=== PATIENT | male | born 1955 | race Caucasian/White ===

== ENCOUNTER 2016-04-03 06:29 | Day surgery (SDC) | payer BC ==
[~2016-04-03] VITALS: Ht 157.5 cm; Wt 46.8 kg
[~2016-04-03 06:29] MED LIST: GABAPENTIN; HYDR-3498 PO; PANTOPRAZOLE
[2016-04-03 07:42] VITALS: Ht 157.5 cm; Wt 46.8 kg
[2016-04-03] MEDS ORDERED: HYDROCODONE (07:53)
[2016-04-03] MEDS ORDERED: NEXIUM (07:53)
[2016-04-03] MEDS ORDERED: REGLAN (07:54)
[2016-04-03] MEDS ORDERED: PROPOFOL 40 ML ONE (08:12)
[2016-04-03 08:15] VITALS: BP 115/66; PULSE 52; RESP 21
[2016-04-03] MEDS ORDERED: GLYCOPYRROLATE 0.4 MG INJ ONE (08:15)
[2016-04-03 09:08] VITALS: BP 110/75; RESP 20
--- NOTE | 2016-04-03 22:04 | GILP ---
DATE OF PROCEDURE: 04/03/2016 PROCEDURE PERFORMED: EGD with biopsy. INDICATION: A 60-year-old male undergoing this procedure for persistent nausea , vomiting. The purpose of this procedure is to evaluate the upper GI tract and rule out malignancy. The risk of the procedure, related and unrelated complications, anesthetic risks, alternatives discussed, and informed consent was obtained. DESCRIPTION OF PROCEDURE: The patient was brought to the GI lab, sedated by the anesthesiologist. After optimum sedation, scope was passed with much ease into the esophagus, which showed multiple ulcerations in the distal part of the esophagus. Stomach mucosa: Half was filled with undigested food indicative of gastric outlet obstruction. The pyloric channel was severely narrowed, probably from scar tissue. I managed to pass through the small opening by gently pushing the scope into the duodenum. It was technically difficult to take the biopsy through the narrow channel, but we tried to take 6-7 biopsies from the margin. The endoscope was immediately removed. IMPRESSION: 1. Gastric outlet obstruction. There was a narrowing at the anastomotic area, with scar tissue and inflammation. 2. Undigested food particles in the stomach. 3. Multiple ulcers in the distal esophagus. PLAN: 1. Will review the histopathology. 2. The patient needs a PET scan, and if the PET scan is negative and there is no recurrence of tumor, then the best thing will be to put an off-label esophageal covered stent. I do not know whether axios will work or not, because the length of the stenosis is longer than the length of the Axios that are available in the [place]. 3. He needs a surgical consult. Dictated By: INA CARCAMO/JEFRY Conf#: [id number] DID#: [id number] CC: INA TOVAR MD;*EndCC* MTDD
== END 2016-04-03 11:41 | disposition home or self-care (01) ==
LOC: GIL 06:29
PROVIDERS: ATTEND Internal Medicine Gastroenterology
DX: K29.50 Unspecified chronic gastritis without bleeding (principal); K22.10 Ulcer of esophagus without bleeding
CPT/HCPCS: 43239; 88305; 88312; Z7610

== ENCOUNTER 2016-05-08 08:56 | Inpatient (IN) | payer BC ==
[~2016-05-08] VITALS: Ht 157.5 cm; Wt 47.0 kg
[~2016-05-08 08:56] MED LIST changes: +HYDROCODONE; +NEXIUM; +REGLAN
[2016-05-08] MEDS ORDERED: morphine 4 MG/ML VIAL IV STA (11:17)
[2016-05-08] MEDS ORDERED: ONDANSETRON 4 MG INJ IV STA (11:17)
[2016-05-08] MEDS ORDERED: SOD CHLORIDE 0.9% 1,000 ML IV STA (11:17)
[2016-05-08] MEDS ORDERED: HYDR-906 PO (11:41)
[2016-05-08] MEDS ORDERED: PANT40TA4 PO (11:42)
[2016-05-08] MEDS ORDERED: METO5TAB58 PO (11:42)
[2016-05-08] MEDS ORDERED: GABA100C14 PO (11:42)
[2016-05-08 11:50] LABS: ADD SCAN DIFF NO
[2016-05-08 11:58] LABS: BASOPHILS % 0.4 % (0.0-2.0); EOSINOPHILS % 0.4 % (0.0-7.0); HEMATOCRIT 33.9 % (42.0-52.0); LYMPHOCYTES # 1.1 10^3/ul (0.8-2.9); LYMPHOCYTES % 14.5 % (15.0-51.0); MEAN CORPUSCULAR HEMOGLOBIN 30.3 pg (29.0-33.0); MEAN CORPUSCULAR HGB CONC 32.4 g/dl (32.0-37.0); MEAN CORPUSCULAR VOLUME 93.4 fl (82.0-101.0); MEAN PLATELET VOLUME 10.7 fl (7.4-10.4); MONOCYTE # 0.4 10^3/ul (0.3-0.9); NEUTROPHIL # 5.9 10^3/ul (1.6-7.5); NEUTROPHILS % 79.4 % (39.0-77.0); PLATELET COUNT 192 10^3/UL (140-415); RED BLOOD COUNT 3.63 10^6/ul (4.70-6.10); RED CELL DISTRIBUTION WIDTH 14.6 % (11.5-14.5); WHITE BLOOD COUNT 7.4 10^3/ul (4.8-10.8)
[2016-05-08 12:00] LABS: ADD UMIC NO; URINE BILIRUBIN (Dip) NEGATIVE (NEGATIVE); URINE BLOOD (Dip) NEGATIVE (NEGATIVE); URINE COLOR LT. YELLOW (YELLOW); URINE GLUCOSE (Dip) NEGATIVE (NEGATIVE); URINE KETONES (Dip) NEGATIVE (NEGATIVE); URINE LEUKOCYTE ESTERASE (Dip) NEGATIVE (NEGATIVE); URINE NITRITE (Dip) NEGATIVE (NEGATIVE); URINE TOTAL PROTEIN (Dip) NEGATIVE (NEGATIVE); URINE UROBILINOGEN (Dip) 0.2 E.U./dL (0.1-1.0)
[2016-05-08 12:05] LABS: ALBUMIN 3.7 g/dl (3.3-4.9)
[2016-05-08 12:07] LABS: CREATININE 0.94 mg/dl (0.61-1.24)
[2016-05-08 12:08] LABS: ALBUMIN/GLOBULIN RATIO 1.37; BILIRUBIN,INDIRECT 0.1 mg/dl (0-1.1); BILIRUBIN,TOTAL 0.1 mg/dl (0.2-1.3); CALCIUM 9.4 mg/dl (8.4-10.2); TOTAL PROTEIN 6.4 g/dl (6.1-8.1)
[2016-05-08] MEDS ORDERED: ONDANSETRON 4 MG INJ IV PRN ×2 (12:30→15:00)
[2016-05-08] MEDS ORDERED: ACETAMINOPHEN 325 MG TAB PO PRN (12:30)
--- NOTE | 2016-05-08 12:44 | ERA ---
ER Documentation Chief Complaint Date/Time DATE: 05/08/16 TIME: 12:40 Chief Complaint PT STATES UNABLE TO PASS FOOD X3 YEARS, HX OF ABD CANCER AND SURGERY HPI Patient is a 60-year-old male with a history of gastric cancer presents with abdominal pain. The patient has had decreased bowel movement for the past 1 week. He has a history of gastric cancer. He said that he will try to eat food and drink fluids and then vomits after eating. He feels like nothing is going through. He has diffuse abdominal pain. The son spoke with Dr. Gallego his GI doctor who said he should go to the emergency department. ROS All systems reviewed and are negative except as per history of present illness. Medications Home Meds Reported Medications Pantoprazole* (Pantoprazole*) 40 Mg Tablet.dr, 40 MG PO AC BREAKFAST, TAB 05/08/16 Metoclopramide* (Reglan*) 5 Mg Tablet, 5 MG PO AC MEALS, TAB 05/08/16 Gabapentin* (Gabapentin*) 100 Mg Capsule, 100 MG PO TID, #90 CAP 05/08/16 Hydrocodone/Acetaminophen ([place] 5-325 Tablet) 1 Each Tablet, 1 EACH PO Q6 Y for PAIN LEVEL 6-10, TAB 05/08/16 Discontinued Reported Medications [Reglan] No Conflict Check 04/03/16 [Nexium] No Conflict Check 04/03/16 [Hydrocodone] No Conflict Check 04/03/16 [Gabapentin] No Conflict Check 01/09/16 [Pantoprazole] No Conflict Check 01/09/16 Hydrocodone Bit-Acetaminophen* (Hydrocodone-APAP*) 5-325 Tablet, 1 TAB PO Q4H Y for PAIN, TAB 10/02/15 Allergies Allergies: Coded Allergies: No Known Allergy (Unverified , 03/09/15) PMhx/Soc History of Surgery: Yes (STOMACH SURGERY FOR STOMACH CANCER) Anesthesia Reaction: No Hx Neurological Disorder: No Hx Respiratory Disorders: No Hx Cardiac Disorders: No Hx Psychiatric Problems: No Hx Miscellaneous Medical Probl: Yes (esophogitis, hx stomach CA) Hx Alcohol Use: No Hx Substance Use: No Hx Tobacco Use: Yes (1-2 TIMES PER WEEK, CIGARETTES) Smoking Status: Current every day smoker FmHx Family History: No diabetes Physical Exam Vitals Vital Signs Date Time Temp Pulse Resp B/P Pulse Ox O2 Delivery O2 Flow Rate FiO2 3/9/17 11:17 97.8 05/08/16 09:12 64 18 108/74 100 Physical Exam Const: Mild distress Head: Atraumatic Eyes: Normal Conjunctiva ENT: Normal External Ears, Nose and Mouth. Neck: Full range of motion..~ No meningismus. Resp: Clear to auscultation bilaterally Cardio: Regular rate and rhythm, no murmurs Abd: Soft, diffuse tenderness to palpation without rebound or guarding, no obvious distention Skin: Pale Back: No midline or flank tenderness Ext: No cyanosis, or edema Neur: Awake and alert Psych: Normal Mood and Affect Result Diagram: 05/08/16 1132 05/08/16 1132 Results 24 hrs Laboratory Tests Test 05/08/16 11:32 Alanine Aminotransferase (ALT/SGPT) 35IU/L Albumin 3.7g/dl Albumin/Globulin Ratio 1.37 Alkaline Phosphatase 156IU/L Anion Gap 14 Aspartate Amino Transf (AST/SGOT) 20IU/L Basophils # 0.010^3/ul Basophils % 0.4% Blood Urea Nitrogen 25mg/dl Calcium Level 9.4mg/dl Carbon Dioxide Level 38mmol/L Chloride Level 93mmol/L Creatinine 0.94mg/dl Direct Bilirubin 0.00mg/dl Eosinophils # 0.010^3/ul Eosinophils % 0.4% Globulin 2.70g/dl Glucose Level 102mg/dl Hematocrit 33.9% Hemoglobin 11.0g/dl Indirect Bilirubin 0.1mg/dl Lipase 14U/L Lymphocytes # 1.110^3/ul Lymphocytes % 14.5% Mean Corpuscular Hemoglobin 30.3pg Mean Corpuscular Hemoglobin Concent 32.4g/dl Mean Corpuscular Volume 93.4fl Mean Platelet Volume 10.7fl Monocytes # 0.410^3/ul Monocytes % 5.0% Neutrophils # 5.910^3/ul Neutrophils % 79.4% Nucleated Red Blood Cells # 0.010^3/ul Nucleated Red Blood Cells % 0.0/100WBC Platelet Count 28195^3/UL Potassium Level 4.0mmol/L Red Blood Count 3.6310^6/ul Red Cell Distribution Width 14.6% Sodium Level 141mmol/L Total Bilirubin 0.1mg/dl Total Protein 6.4g/dl Urine Bilirubin NEGATIVE Urine Clarity CLEAR Urine Color LT. YELLOW Urine Glucose NEGATIVE% Urine Hemoglobin NEGATIVE Urine Ketones NEGATIVE Urine Leukocyte Esterase NEGATIVE Urine Nitrite NEGATIVE Urine Specific [place] 1.015 Urine Total Protein NEGATIVE Urine Urobilinogen 0.2 E.U./dL Urine pH 8.5 White Blood Count 7.410^3/ul Current Medications Medications (Trade) Dose Ordered Sig/Dipesh Route PRN Reason Start Time Stop Time Status Last Admin Dose Admin Sodium Chloride (NS) 1,000 ml @ 1,000 mls/hr Q1H STAT IV 05/08/16 11:17 05/08/16 12:16 DC 05/08/16 12:05 Morphine Sulfate (morphine) 4 mg ONCE STAT IV 05/08/16 11:17 05/08/16 11:19 DC 05/08/16 12:05 Ondansetron HCl (Zofran Inj) 4 mg ONCE STAT IV 05/08/16 11:17 05/08/16 11:20 DC 05/08/16 12:05 Ondansetron HCl (Zofran Inj) 4 mg BRIDGE ORDER PRN IV NAUSEA AND/OR VOMITING 05/08/16 12:30 05/09/16 12:29 Acetaminophen (Tylenol Tab) 650 mg ER BRIDGE PRN PO MILD PAIN/FEVER 05/08/16 12:30 05/09/16 12:29 Procedures/MDM CT scan of the abdomen and pelvis is pending radiology read at this time. Smoking Cessation Therapy: Pt. was lectured for greater than 3 minutes on the health risks of continued smoking and the benefits of cessation. Patient is a 60-year-old male with gastric cancer presents with abdominal pain and vomiting. I believe he has gastric outflow obstruction. I am concerned that the patient has dehydration as his BUN creatinine ratio is greater than 20. He was given 1 L of normal saline for fluid resuscitation. The patient was also given morphine and Zofran for symptomatically relief of his pain and nausea. Based on his insurance which is [facility] the patient will be admitted to Dr. Self who admits this insurance. The patient will be admitted to a medical surgical bed. I also called Dr. Gallego his embroiderer hand and I am awaiting a call back at this time. The patient had EGD last in April and may need a repeat EGD versus surgical procedure to repair his obstruction. At this point I doubt appendicitis, cholecystitis, pancreatitis, or bowel obstruction. Patient has anemia with a hemoglobin of 11 but does not require transfusion at this time. Departure Diagnosis: Primary Impression: Gastric outflow obstruction Additional Impression: Vomiting Qualified Code: R11.2 - Intractable vomiting with nausea, unspecified vomiting type Condition: ANEL De Luna MD May 08, 2016 12:44
[2016-05-08 13:14] VITALS: TEMP 97.8
--- NOTE | 2016-05-08 13:59 | RADRPT ---
PROCEDURE: CT Abdomen and Pelvis without contrast. CLINICAL INDICATION: Abdominal pain TECHNIQUE: CT scan of the abdomen and pelvis without contrast was performed on a multi-slice CT sc sarah without intravenous contrast. Coronal and sagittal reformatted images were obtained from the axial source images. Images were reviewed on a high-resolution PACS workstation. One or more of the following does reduction techniques were used: Automated exposure control; adjustment of the mA an d/or kV according to patient size; use of the aorta of reconstruction technique. The total exam CTD I equals 3.57 mGy and the total exam DLP equals 194.37 mGy-cm. COMPARISON: None available. FINDINGS: The lung bases are clear. Heart size is normal, and there is no evidence of pericardial thickening or effusion. Evaluation of the abdominal contents is limited due to lack of intravenous and oral contrast combine d with paucity of abdominal fat. There is marked distension of the gastric lumen which contains moderate amounts of debris. There is a questionable gastrojejunostomy and/or Esteban-en-Y gastric bypass. The liver, spleen, and pancreas are normal given limitations of a noncontrast CT examination. The g allbladder appears contracted. The adrenal glands are normal. There is a punctate right upper pole nonobstructing renal calculus. There is a 2 mm left upper pole nonobstructing renal calculus. There is no hydronephrosis. Left r enal cysts are present. The aorta is of normal caliber. Atherosclerotic calcifications are present. There is no retroperito terri lymph node enlargment. There is no evidence of large or small bowel obstruction. A normal appendix is not identified. No free fluid or fluid collections are identified. No inflammatory changes are seen. The prostate is mildly enlarged. Evaluation for pelvic side wall lymph node enlargement is limited. There is no definite pelvic sidewall lymph node enlargement. The bladder is compressed and collapse d. No free fluid is identified. The inguinal regions are unremarkable. Incidental note is made of a moderate right hydrocele. The bones are intact. IMPRESSION: 1. Study limited by lack of intravenous and oral contrast combined with paucity of abdominal fat. 2. Marked distension of the gastric lumen which contains moderate amounts of debris. There are que stionable postsurgical changes in the abdomen, and there may be a gastrojejunostomy. Recommend raven elation with surgical history. 3. Small bilateral nonobstructing renal calculi. 4. Atherosclerotic vascular disease. RPTAT: KK .Pedro Saba MD, MD Date Time Electronically viewed and signed by .Pedro Saba MD, MD on 05/08/2016 13:58 .B/
[2016-05-08 14:00] VITALS: Ht 157.5 cm; Wt 47.0 kg
[2016-05-08] MEDS ORDERED: PANTOPRAZOLE 40 MG INJ IV ONE (15:00)
[2016-05-08] MEDS: DEXTROSE 5%-0.45% NACL 1,000 ML IV SCH (16:34)
--- NOTE | 2016-05-08 17:32 | HP ---
Date/Time of Note Date/Time of Note DATE: 05/08/16 TIME: 17:25 Assessment/Plan VTE Prophylaxis VTE Prophylaxis Intervention: LMWH Assessment/Plan Assessment/Plan -Gastric outflow obstruction - npo - GI consult appreciated- Dr Gallego notified -Intractable vomiting with nausea - per GI - Zofran - Right hydrocele. - Urology consult appreciated- Dr Lozada notified - Small bilateral nonobstructing renal calculi. - per Urology - Atherosclerotic vascular disease. - Smoker- Current every day smoker(1-2 TIMES PER WEEK, CIGARETTES) -smoking cessation - Hx stomach CA - SP Stomach surgery sec to stomach cancer - Hx Esophogitis - SCDs for DVT prophylaxis - Protonix for GI prophylaxis DW Dr Fernando/ staff/patient. HPI/ROS Admit Date/Time Admit Date/Time May 08, 2016 at 13:19 Hx of Present Illness PT STATES UNABLE TO PASS FOOD X3 YEARS, HX OF ABD CANCER AND SURGERY HPI Patient is a 60-year-old male with a history of gastric cancer presents with abdominal pain. The patient has had decreased bowel movement for the past 1 week. He has a history of gastric cancer. He said that he will try to eat food and drink fluids and then vomits after eating. He feels like nothing is going through. He has diffuse abdominal pain. The son spoke with Dr. Gallego his GI doctor who said he should go to the emergency department. ROS All systems reviewed and are negative except as per history of present illness. Medications Home Meds Reported Medications Pantoprazole* (Pantoprazole*) 40 Mg Tablet., 40 MG PO AC BREAKFAST, TAB 05/08/16 Metoclopramide* (Reglan*) 5 Mg Tablet, 5 MG PO AC MEALS, TAB 05/08/16 Gabapentin* (Gabapentin*) 100 Mg Capsule, 100 MG PO TID, #90 CAP 05/08/16 Hydrocodone/Acetaminophen ([place] 5-325 Tablet) 1 Each Tablet, 1 EACH PO Q6 Y for PAIN LEVEL 6-10, TAB 05/08/16 Discontinued Reported Medications [Reglan] No Conflict Check 04/03/16 [Nexium] No Conflict Check 04/03/16 [Hydrocodone] No Conflict Check 04/03/16 [Gabapentin] No Conflict Check 01/09/16 [Pantoprazole] No Conflict Check 01/09/16 Hydrocodone Bit-Acetaminophen* (Hydrocodone-APAP*) 5-325 Tablet, 1 TAB PO Q4H Y for PAIN, TAB 10/02/15 Allergies Allergies: Coded Allergies: No Known Allergy (Unverified , 03/09/15) ROS Eyes: no complaints ENT: no complaints Respiratory: no complaints Cardiovascular: no complaints Gastrointestinal: pain Genitourinary: no complaints Musculoskeletal: no complaints Skin: no complaints Neurologic: no complaints Endocrine: no complaints Lymphatic: no complaints Psychological: no complaints PMH/Family/Social Past Medical History PMhx/Soc History of Surgery: Yes (STOMACH SURGERY FOR STOMACH CANCER) Anesthesia Reaction: No Hx Neurological Disorder: No Hx Respiratory Disorders: No Hx Cardiac Disorders: No Hx Psychiatric Problems: No Hx Miscellaneous Medical Probl: Yes (esophogitis, hx stomach CA) Hx Alcohol Use: No Hx Substance Use: No Hx Tobacco Use: Yes (1-2 TIMES PER WEEK, CIGARETTES) Smoking Status: Current every day smoker FmHx Family History: No diabetes Social History Smoking Status: Current every day smoker Exam/Review of Systems Vital Signs Vitals Vital Signs Date Time Temp Pulse Resp B/P Pulse Ox O2 Delivery O2 Flow Rate FiO2 05/08/16 13:14 97.8 45 12 110/76 100 Room Air Exam Constitutional: alert, oriented, well developed Psych: no complaints Head: atraumatic Eyes: EOMI ENMT: nl external ears & nose Neck: non-tender Respiratory: clear to auscultation Cardiovascular: nl pulses Gastrointestinal: other (Soft, diffuse tenderness to palpation without rebound or guarding, no obvious distention), soft, tender Musculoskeletal: nl extremities to inspection Extremities: normal pulses Labs Result Diagram: 05/08/16 1132 05/08/16 1132 Medications Medications Current Medications Dextrose/Sodium Chloride (D5-1/2ns) 1,000 ml @ 70 mls/hr [id number] IV Last administered on 05/08/16t 16:34; Admin Dose 70 MLS/HR; Start 05/08/16 at 15:00 Pantoprazole (Protonix Iv) 40 mg DAILY@06 IV ; Start 05/09/16 at 06:00 Ondansetron HCl (Zofran Inj) 4 mg Q6H PRN IV NAUSEA AND/OR VOMITING; Start 05/08 at 15:00 Procedures Procedures PROCEDURE: CT Abdomen and Pelvis without contrast. CLINICAL INDICATION: Abdominal pain TECHNIQUE: CT scan of the abdomen and pelvis without contrast was performed on a multi-slice CT scanner without intravenous contrast. Coronal and sagittal reformatted images were obtained from the axial source images. Images were reviewed on a high-resolution PACS workstation. One or more of the following does reduction techniques were used: Automated exposure control; adjustment of the mA and/or kV according to patient size; use of the aorta of reconstruction technique. The total exam CTDI equals 3.57 mGy and the total exam DLP equals 194.37 mGy-cm. COMPARISON: None available. FINDINGS: The lung bases are clear. Heart size is normal, and there is no evidence of pericardial thickening or effusion. Evaluation of the abdominal contents is limited due to lack of intravenous and oral contrast combined with paucity of abdominal fat. There is marked distension of the gastric lumen which contains moderate amounts of debris. There is a questionable gastrojejunostomy and/or Esteban-en-Y gastric bypass. The liver, spleen, and pancreas are normal given limitations of a noncontrast CT examination. The gallbladder appears contracted. The adrenal glands are normal. There is a punctate right upper pole nonobstructing renal calculus. There is a 2 mm left upper pole nonobstructing renal calculus. There is no hydronephrosis. Left renal cysts are present. The aorta is of normal caliber. Atherosclerotic calcifications are present. There is no retroperitoneal lymph node enlargment. There is no evidence of large or small bowel obstruction. A normal appendix is not identified. No free fluid or fluid collections are identified. No inflammatory changes are seen. The prostate is mildly enlarged. Evaluation for pelvic side wall lymph node enlargement is limited. There is no definite pelvic sidewall lymph node enlargement. The bladder is compressed and collapsed. No free fluid is identified. The inguinal regions are unremarkable. Incidental note is made of a moderate right hydrocele. The bones are intact. IMPRESSION: 1. Study limited by lack of intravenous and oral contrast combined with paucity of abdominal fat. 2. Marked distension of the gastric lumen which contains moderate amounts of debris. There are questionable postsurgical changes in the abdomen, and there may be a gastrojejunostomy. Recommend correlation with surgical history. 3. Small bilateral nonobstructing renal calculi. 4. Atherosclerotic vascular disease. LAYLA HAMILTON May 08, 2016 17:32
[2016-05-08 18:05] VITALS: BP 117/78; RESP 16
[2016-05-08 18:46] LABS: ALBUMIN 3.2 g/dl (3.3-4.9)
[2016-05-08 18:48] LABS: BILIRUBIN,INDIRECT 0.1 mg/dl (0-1.1); BILIRUBIN,TOTAL 0.1 mg/dl (0.2-1.3)
[2016-05-08 18:49] LABS: TOTAL PROTEIN 5.8 g/dl (6.1-8.1)
[2016-05-08 20:00] VITALS: BP 104/68; RESP 18
[2016-05-08] MEDS: PANTOPRAZOLE 40 MG INJ IV SCH (20:29)
--- NOTE | 2016-05-08 21:35 | CONS ---
Date/Time of Note Date/Time of Note DATE: 05/08/16 TIME: 21:26 Assessment/Plan Assessment/Plan Chief Complaint/Hosp Course Impression: 1. Gastric outflow obstruction 2. Intractable vomiting with nausea secondary to gastric outlet obstruction 3. esophagitis 4. Right hydrocele. 5. Small bilateral nonobstructing renal calculi. 6 Atherosclerotic vascular disease. 7 Smoker- Current every day smoker(1-2 TIMES PER WEEK, CIGARETTES) 8. h/o stomach cancer s/p RNY surgery Recommendations: 1. NPO 2. scheduled for EGD with possible dilation of the anastomotic stricture 3. smoking cessation 4. increase protonix to bid dosing for his esophagitis 5. if EGD cannot relieve his gastric outlet obstruction by pneumotic dilation, then he will need to be seen by surgery for resection/bypass. 6. risks, benefits and alternatives of EGD with dilation explained to the patient by myself. All of patient's questions were answered and he expressed understanding. He agreed to EGD with dilation knowing risks of perforation, aspiration, infection, etc... 7. given high risk nature of this procedure such as aspiration, anesthesia is needed for airway monitor and to provide more controlled setting for me to perform this procedure. Problems: Consultation Date/Type/Reason Admit Date/Time May 08, 2016 at 13:19 Date of Consultation: May 08, 2016 Type of Consultation: GI Reason for Consultation gastric outlet obstruction Hx of Present Illness 60-year-old male with a history of gastric cancer who is admitted for gastric outlet obstruction. He reports severe diffuse crampy abdominal pain. The patient has had decreased bowel movement for the past 1 week. He has a history of gastric cancer. He said that he will try to eat food and drink fluids and then vomits after eating. He feels like nothing is going through. He has diffuse abdominal pain. He was recently hospitalized in Apr for the same s/p EGD on 04/03/16 that showed gastric outlet obstruction with a narrowed at the anastomotic area with scar tissue and inflammation, there were also multiple ulcers in the distal esophagus. All point ROS were administered, pertinent positives and negatives in HPI otherwise negative, Eyes: no complaints ENT: no complaints Respiratory: no complaints Cardiovascular: no complaints Gastrointestinal: pain Genitourinary: no complaints Musculoskeletal: no complaints Skin: no complaints Neurologic: no complaints Lymphatic: no complaints Psychological: no complaints Past Medical History esophagitis Medical History: cancer (gastric ), GERD Past Surgical History Past Surgical Hx: bowel resection, endoscopy Family History Significant Family History: no pertinent family hx Social History Alcohol Use: none Smoking Status: Former smoker Drug Use: none Exam/Review of Systems Vital Signs Vitals Vital Signs Date Time Temp Pulse Resp B/P Pulse Ox O2 Delivery O2 Flow Rate FiO2 05/08/16 20:00 97.7 60 18 104/68 100 05/08/16 13:14 Room Air Exam Constitutional: alert, frail, oriented Psych: nl mood/affect, no complaints Head: atraumatic, normocephalic Eyes: EOMI, nl conjunctiva, nl lids, nl sclera ENMT: mucosa pink and moist, nl external ears & nose, nl lips & teeth, nl nasal mucosa & septum Neck: non-tender, supple Respiratory: clear to auscultation, normal air movement Cardiovascular: nl pulses, regular rate and rhythm Gastrointestinal: bowel sounds, non-tender, soft Musculoskeletal: nl extremities to inspection, nl gait and stance Extremities: normal pulses Neurological: nl mental status, nl speech, nl strength Results Result Diagram: 05/08/16 1132 05/08/16 1132 Results 24 hrs Laboratory Tests Test 05/08/16 11:32 05/08/16 18:10 Alanine Aminotransferase (ALT/SGPT) 35 38 Albumin 3.7 3.2 L Albumin/Globulin Ratio 1.37 Alkaline Phosphatase 156 H 150 H Anion Gap 14 Aspartate Amino Transf (AST/SGOT) 20 39 # Basophils # 0.0 Basophils % 0.4 Blood Urea Nitrogen 25 H Calcium Level 9.4 Carbon Dioxide Level 38 H Chloride Level 93 L Creatinine 0.94 Direct Bilirubin 0.00 0.00 Eosinophils # 0.0 Eosinophils % 0.4 Globulin 2.70 Glucose Level 102 Hematocrit 33.9 L Hemoglobin 11.0 L Indirect Bilirubin 0.1 0.1 Lipase 14 L Lymphocytes # 1.1 Lymphocytes % 14.5 L Mean Corpuscular Hemoglobin 30.3 Mean Corpuscular Hemoglobin Concent 32.4 Mean Corpuscular Volume 93.4 Mean Platelet Volume 10.7 H Monocytes # 0.4 Monocytes % 5.0 Neutrophils # 5.9 Neutrophils % 79.4 H Nucleated Red Blood Cells # 0.0 Nucleated Red Blood Cells % 0.0 Platelet Count 192 Potassium Level 4.0 Red Blood Count 3.63 L Red Cell Distribution Width 14.6 H Sodium Level 141 Total Bilirubin 0.1 L 0.1 L Total Protein 6.4 5.8 L Urine Bilirubin NEGATIVE Urine Clarity CLEAR Urine Color LT. YELLOW Urine Glucose NEGATIVE Urine Hemoglobin NEGATIVE Urine Ketones NEGATIVE Urine Leukocyte Esterase NEGATIVE Urine Nitrite NEGATIVE Urine Specific [place] 1.015 Urine Total Protein NEGATIVE Urine Urobilinogen 0.2 E.U./dL Urine pH 8.5 White Blood Count 7.4 Medications Medications Current Medications Dextrose/Sodium Chloride (D5-1/2ns) 1,000 ml @ 70 mls/hr [id number] IV Last administered on 05/08/16 16:34; Admin Dose 70 MLS/HR; Start 05/08/16 at 15:00 Ondansetron HCl (Zofran Inj) 4 mg Q6H PRN IV NAUSEA AND/OR VOMITING; Start 05/08 at 15:00 Morphine Sulfate (morphine) 2 mg Q4H PRN IV PAIN LEVEL 6-10; Start 05/08/16 at 17:30 Pantoprazole (Protonix Iv) 40 mg BID@06,18 IV Last administered on 05/08/16 20: 29; Admin Dose 40 MG; Start 05/08/16 at 20:00 ELVIA SOTO MD May 08, 2016 21:35
--- NOTE | 2016-05-08 22:48 | CONS ---
Date/Time of Note Date/Time of Note DATE: 05/08/16 TIME: 22:47 Assessment/Plan Assessment/Plan Chief Complaint/Hosp Course HX GASTRIC CANCER INCOMPLETE RECORD OBTAIN AND REVIEW OLD RECORD -Gastric outflow obstruction - npo - GI consult appreciated- Dr Gallego notified ENDOSCOPY -Intractable vomiting with nausea - per GI - Zofran - Right hydrocele. - Urology consult appreciated- Dr Lozada notified - Small bilateral nonobstructing renal calculi. - per Urology - Atherosclerotic vascular disease. - Smoker- Current every day smoker(1-2 TIMES PER WEEK, CIGARETTES) -smoking cessation - Hx stomach CA - SP Stomach surgery sec to stomach cancer - Hx Esophogitis - SCDs for DVT prophylaxis - Protonix for GI prophylaxis Problems: Consultation Date/Type/Reason Admit Date/Time May 08, 2016 at 13:19 Date of Consultation: May 08, 2016 [facility] for Consultation gastric cancer Referring Provider: NAKUL BROWN MD Hx of Present Illness Patient is a 60-year-old male with a history of gastric cancer presents with abdominal pain. The patient has had decreased bowel movement for the past 1 week. He has a history of gastric cancer. He said that he will try to eat food and drink fluids and then vomits after eating. He feels like nothing is going through. He has diffuse abdominal pain. The son spoke with Dr. Gallego his GI doctor who said he should go to the emergency department. ROS All systems reviewed and are negative except as per history of present illness. Medications Home Meds Reported Medications Pantoprazole* (Pantoprazole*) 40 Mg Tablet., 40 MG PO AC BREAKFAST, TAB 05/08/16 Metoclopramide* (Reglan*) 5 Mg Tablet, 5 MG PO AC MEALS, TAB 05/08/16 Gabapentin* (Gabapentin*) 100 Mg Capsule, 100 MG PO TID, #90 CAP 05/08/16 Hydrocodone/Acetaminophen ([place] 5-325 Tablet) 1 Each Tablet, 1 EACH PO Q6 Y for PAIN LEVEL 6-10, TAB 05/08/16 Discontinued Reported Medications [Reglan] No Conflict Check 04/03/16 [Nexium] No Conflict Check 04/03/16 [Hydrocodone] No Conflict Check 04/03/16 [Gabapentin] No Conflict Check 01/09/16 [Pantoprazole] No Conflict Check 01/09/16 Hydrocodone Bit-Acetaminophen* (Hydrocodone-APAP*) 5-325 Tablet, 1 TAB PO Q4H Y for PAIN, TAB 10/02/15 Allergies Allergies: Coded Allergies: No Known Allergy (Unverified , 03/09/15) ROS Eyes: no complaints ENT: no complaints Respiratory: no complaints Cardiovascular: no complaints Gastrointestinal: pain Genitourinary: no complaints Musculoskeletal: no complaints Skin: no complaints Neurologic: no complaints Endocrine: no complaints Lymphatic: no complaints Psychological: no complaints PMH/Family/Social Past Medical History PMhx/Soc History of Surgery: Yes (STOMACH SURGERY FOR STOMACH CANCER) Anesthesia Reaction: No Hx Neurological Disorder: No Hx Respiratory Disorders: No Hx Cardiac Disorders: No Hx Psychiatric Problems: No Hx Miscellaneous Medical Probl: Yes (esophogitis, hx stomach CA) Hx Alcohol Use: No Hx Substance Use: No Hx Tobacco Use: Yes (1-2 TIMES PER WEEK, CIGARETTES) Smoking Status: Current every day smoker FmHx Family History: No diabetes Social History Smoking Status: Current every day smoker Eyes: no complaints ENT: no complaints Respiratory: no complaints Cardiovascular: no complaints Gastrointestinal: pain Genitourinary: no complaints Musculoskeletal: no complaints Skin: no complaints Neurologic: no complaints Lymphatic: no complaints Psychological: nl mood/affect, no complaints Past Medical History Medical History: cancer (gastric ), GERD Past Surgical History Past Surgical Hx: bowel resection, endoscopy Social History Alcohol Use: none Smoking Status: Former smoker Drug Use: none Exam/Review of Systems Vital Signs Vitals Vital Signs Date Time Temp Pulse Resp B/P Pulse Ox O2 Delivery O2 Flow Rate FiO2 05/08/16 20:00 97.7 60 18 104/68 100 05/08/16 13:14 Room Air Exam Constitutional: alert, oriented, well developed Psych: no complaints Head: atraumatic Eyes: EOMI ENMT: nl external ears & nose Neck: non-tender Respiratory: clear to auscultation Cardiovascular: nl pulses Gastrointestinal: other (Soft, diffuse tenderness to palpation without rebound or guarding, no obvious distention), soft, tender Musculoskeletal: nl extremities to inspection Extremities: normal pulses Results Result Diagram: 05/08/16 1132 05/08/16 1132 Results 24 hrs Laboratory Tests Test 05/08/16 11:32 05/08/16 18:10 Alanine Aminotransferase (ALT/SGPT) 35 38 Albumin 3.7 3.2 L Albumin/Globulin Ratio 1.37 Alkaline Phosphatase 156 H 150 H Anion Gap 14 Aspartate Amino Transf (AST/SGOT) 20 39 # Basophils # 0.0 Basophils % 0.4 Blood Urea Nitrogen 25 H Calcium Level 9.4 Carbon Dioxide Level 38 H Chloride Level 93 L Creatinine 0.94 Direct Bilirubin 0.00 0.00 Eosinophils # 0.0 Eosinophils % 0.4 Globulin 2.70 Glucose Level 102 Hematocrit 33.9 L Hemoglobin 11.0 L Indirect Bilirubin 0.1 0.1 Lipase 14 L 15 L Lymphocytes # 1.1 Lymphocytes % 14.5 L Mean Corpuscular Hemoglobin 30.3 Mean Corpuscular Hemoglobin Concent 32.4 Mean Corpuscular Volume 93.4 Mean Platelet Volume 10.7 H Monocytes # 0.4 Monocytes % 5.0 Neutrophils # 5.9 Neutrophils % 79.4 H Nucleated Red Blood Cells # 0.0 Nucleated Red Blood Cells % 0.0 Platelet Count 192 Potassium Level 4.0 Red Blood Count 3.63 L Red Cell Distribution Width 14.6 H Sodium Level 141 Total Bilirubin 0.1 L 0.1 L Total Protein 6.4 5.8 L Urine Bilirubin NEGATIVE Urine Clarity CLEAR Urine Color LT. YELLOW Urine Glucose NEGATIVE Urine Hemoglobin NEGATIVE Urine Ketones NEGATIVE Urine Leukocyte Esterase NEGATIVE Urine Nitrite NEGATIVE Urine Specific Leon 1.015 Urine Total Protein NEGATIVE Urine Urobilinogen 0.2 E.U./dL Urine pH 8.5 White Blood Count 7.4 Medications Medications Current Medications Dextrose/Sodium Chloride (D5-1/2ns) 1,000 ml @ 70 mls/hr [id number] IV Last administered on 05/08/16 16:34; Admin Dose 70 MLS/HR; Start 05/08/16 at 15:00 Ondansetron HCl (Zofran Inj) 4 mg Q6H PRN IV NAUSEA AND/OR VOMITING; Start 05/08 at 15:00 Morphine Sulfate (morphine) 2 mg Q4H PRN IV PAIN LEVEL 6-10; Start 05/08/16 at 17:30 Pantoprazole (Protonix Iv) 40 mg BID@06,18 IV Last administered on 05/08/16 20: 29; Admin Dose 40 MG; Start 05/08/16 at 20:00 DIANNA SCOTT MD May 08, 2016 22:48
[2016-05-09] VITALS (7 sets, daily range): BP systolic 84–133; BP diastolic 56–73; PULSE 50–55; RESP 15–18
--- NOTE | 2016-05-09 04:02 | CONS ---
DATE OF ADMISSION: 05/08/2016 DATE OF CONSULTATION: 05/08/2016 HISTORY OF PRESENT ILLNESS: The patient is a 60-year-old male who presented to the emergency room c omplaining that he has been unable to pass food for 3 years and history of gastric cancer and underw ent surgery in [facility] 20 years earlier and about 3 years earlier at [facility], and he cuevas s not know whether there was any recurrent cancer. He has been trying to eat and drink fluid and vo mits after eating. He feels like nothing is going through his abdomen. Upon admission, the patient underwent a CT scan of the abdomen and pelvis, and that showed also bilateral renal stones that are small but not obstructing. Urology consultation was requested because of that. Also, the CT scan showed marked distention of the gastric lumen which contains moderate amount of debris. There are q uestionable postsurgical changes in the abdomen, and there may be a gastrojejunostomy. Recommend co rrelation with surgical history. Obviously this patient did have 2 surgeries on his gastric cancer, and what was done and is unclear. PAST MEDICAL HISTORY: Also does have a history of esophagitis, and he is very cachectic. ALLERGIES: HE HAS NO KNOWN DRUG ALLERGIES. FAMILY HISTORY: Negative. MEDICATIONS: Presently include: 1. Protonix. 2. Morphine for the pain. 3. IV fluid. 4. Zofran p.r.n. for the nausea and vomiting. PHYSICAL EXAMINATION: GENERAL: Reveals a 60-year-old male. He weighs 47 kilograms. He is 62 inches tall. VITAL SIGNS: Temperature is 97.6, pulse is 53, respirations 16, blood pressure 117/78. ABDOMEN: The patient is very, very cachectic. One could feel his ribs, and he points to the left u pper quadrant as the area of the pain. He does have two scars in the abdomen going from the epigast kelsey area all the way down. There is no abdominal mass palpable. GENITALIA: External genitalia, he does have right hydrocele. Penis and left testis are normal. EXTREMITIES: Reveal no edema. LABORATORY DATA: His CBC shows a white count of 7.4, hemoglobin 11.0, hematocrit 33.9. BUN is 25, creatinine 0.94. Electrolytes: Sodium 141, potassium 4.0, chloride 93, CO2 38. The urinalysis on admission was negative. IMPRESSION: Bilateral renal stones that are small and nonobstructing. These are of no clinical sig nificance for him at the present. His problem is his gastric problem, and he is being followed by Dhiraj Gallego. He will manage his present problems. I will see him again if needed. Dictated By: PATRICIA ARAGON/JEFRY Conf#: [id number] DID#: [id number]
[2016-05-09] MEDS ORDERED: PANTOPRAZOLE 40 MG INJ IV SCH (06:00)
[2016-05-09 06:04] LABS: ADD SCAN DIFF NO
[2016-05-09] MEDS: DEXTROSE 5%-0.45% NACL 1,000 ML IV SCH ×3 (06:18→22:29)
[2016-05-09] MEDS: PANTOPRAZOLE 40 MG INJ IV SCH ×2 (06:18→17:52)
[2016-05-09 06:21] LABS: INR 0.96; PROTIME 12.8 Sec (12.2-14.2)
[2016-05-09 06:26] LABS: PARTIAL THROMBOPLASTIN TIME 29.7 Sec (25.0-35.0)
[2016-05-09 06:27] LABS: BASOPHILS % 0.4 % (0.0-2.0); EOSINOPHILS # 0.1 10^3/ul (0.0-0.5); EOSINOPHILS % 2.1 % (0.0-7.0); HEMATOCRIT 30.7 % (42.0-52.0); HEMOGLOBIN 9.8 g/dl (14.0-18.0); LYMPHOCYTES % 18.5 % (15.0-51.0); MEAN CORPUSCULAR HEMOGLOBIN 29.8 pg (29.0-33.0); MEAN CORPUSCULAR HGB CONC 31.9 g/dl (32.0-37.0); MEAN CORPUSCULAR VOLUME 93.3 fl (82.0-101.0); MEAN PLATELET VOLUME 11.1 fl (7.4-10.4); MONOCYTE # 0.5 10^3/ul (0.3-0.9); MONOCYTES % 9.2 % (0.0-11.0); NEUTROPHIL # 3.7 10^3/ul (1.6-7.5); NEUTROPHILS % 69.6 % (39.0-77.0); PLATELET COUNT 154 10^3/UL (140-415); RED BLOOD COUNT 3.29 10^6/ul (4.70-6.10); RED CELL DISTRIBUTION WIDTH 14.6 % (11.5-14.5); WHITE BLOOD COUNT 5.3 10^3/ul (4.8-10.8)
[2016-05-09 06:29] LABS: CREATININE 0.83 mg/dl (0.61-1.24)
[2016-05-09 06:30] LABS: CALCIUM 8.4 mg/dl (8.4-10.2)
--- NOTE | 2016-05-09 07:48 | OPR ---
Date/Time of Note Date/Time of Note DATE: 05/09/16 TIME: 07:41 Operative Report Free Text/Dictation Impression: 1. esophagitis. 2. ulcerated anastomosis that is narrowed with pinhole opening. I cannot pass the EGD scope past the anastomosis due to the pinhole size. Cannot do pneumotic dilation due to high aspiration risk and ulcerated anastomosis that is pinhole size which carries high risk of perforation. 3. large retained food in stomach Recommendations: 1. please consult surgery for surgical bypass of this gastric outlet obstruction 2. continue protonix for his esophagitis which hopefully will also help with the ulcerated pinhole stricture at the anastomosis. 3. 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 Operation Performed EGD with biopsy Surgeon: ELVIA SOTO MD Anesthesia: MAC Anesthesiologist: JOSSELIN GAN MD Estimated Blood Loss: minimal Specimens anastomosis biopsies Tubes/Drains none Complications: None Pt Condition Post Procedure: stable Disposition: PACU Indications intractable nausea and vomiting Operative Findings 1. erosive esophagitis 2. ulcerated pinhole size anastomosis 3. GEJ at 38 cm 4. cannot evaluate z line due to esophagitis Procedure Description After timeout and informed consent, I inserted an adult EGD scope from the mouth and advanced to the stomach. I then suctioned out the air while examining the esophagus. GEJ at 40 cm. ELVIA SOTO MD May 09, 2016 07:48
[2016-05-09] MEDS ORDERED: PROPOFOL 20 ML ONE (07:54)
[2016-05-09] MEDS ORDERED: MIDAZOLAM 1 MG/ML 2 ML INJ ONE (07:55)
[2016-05-09] MEDS ORDERED: FENTAnyl 50 MCG/ML VIAL ONE (07:55)
--- NOTE | 2016-05-09 16:51 | CONS ---
[facility] INITIAL INPATIENT CONSULTATION NOTE: DATE OF CONSULTATION: 05/09/2016 PLACE OF SERVICE: [facility] 6th floor ASSESSMENT AND PLAN: A very pleasant 60-year-old gentleman with a complex past medical and surgical history most significant for gastric cancer that was removed in [facility] about 20 years ago and then reportedly had recurrence with removal in November of 2013 followed by radiation and chemotherapy. He has had signs and symptoms that are very much consistent with gastric outlet obstruction likely due to scarring and ischemia as opposed to malignancy. Part of my impression is due to the long duration between the initial diagnosis and the recurrence as well as the multiple upper endoscopies with biopsies that were done that failed to show evidence of malignancy at the area of anastomosis. His noncontrast CT is limited in terms of evaluation for malignant presence. For this reason, as part of his workup, he needs a quality liver dedicated triple phase CT scan of abdomen and pelvis with oral contrast. He will likely also need an upper GI with small bowel follow through to better delineate the anatomy. We also need to obtain information about his gastric cancer and perioperative treatment as much as possible. I believe that with a few days of gastric decompression and for us obtaining the above-mentioned information the patient may be eligible for an urgent/semi elective exploration with a gastric outlet revision. Deciding the appropriate operation would also depend on our oncologist's opinion as well as his own oncologist's opinion regarding the benefit of further gastrectomy given the history of gastric cancer. I doubt that he would need any further chemotherapy or radiation either preoperatively or postoperatively, but the patient should be considered in a multidisciplinary fashion. I explained all this to the patient in detail and answered all his questions to the best of my ability. The patient appeared to understand and agreed with the plan. With above assessment, I recommend the followin. Obtain previous records from [facility] as well as from patient's primary oncologist, Dr. Lawrence at the [facility] ( phone [phone]) as well as patient's primary oncologist, Dr. Bailey Owens for radiation oncology at [phone]. 2. Upper GI with small bowel follow through after CT scan of abdomen and pelvis as mentioned above. 3. Continued b.i.d. Protonix. The patient will need lifelong Protonix at home. 4. NG decompression. 5. Multidisciplinary discussion. 6. Possible schedule for surgical revision in the next few days. 7. Consideration for nutritional supplementation and possible total parenteral nutrition use. At times after above evaluation is finished, I changed my recommendation to 2 to 3 weeks of total parenteral nutrition administration with NG decompression in order to maximize the degree of safety of the operation. 8. Lifetime proton pump inhibition Thank you again for allowing us to participate in the care of this very pleasant gentleman and I am certain his wonderful family. If there are any questions, please feel free to call me at area code [phone]. TOTAL VISIT TIME: 60 minutes of which more than half was spent in [id number] discussion with the patient as well as coordination of care between multiple physicians and providers. Updated clinical summary: This is a very pleasant 60-year-old gentleman with comorbidity of previous history of gastric cancer status post resection in [facility] about 20 years ago and then recurrence in 2013 when the patient underwent endoscopic biopsy at [facility] in November of 2013. Then subsequently was transferred to [facility] where he underwent re- resection. He was treated with chemotherapy and radiation afterwards. The details are currently missing and we are in the process of obtaining those. He also has a BMI 19.0 mainly due to 10 to 20 year history of difficulty with eating. This history has worsened over the last 3 years. The patient has had multiple endoscopic evaluations at [facility] starting 03/2015, repeated 10/2015, repeated 01/2016 and then 04/03/2016. In all of these endoscopic evaluations, the patient was found to have narrowing of the gastric outlet anastomosis onto the small intestine. The attempts to dilate this area were unsuccessful where the scope could not be passed. Several biopsies on all of these endoscopic attempts were negative. Patient was admitted to [facility] on 05/08/2016 with nausea, vomiting and abdominal pain. Endoscopic evaluation was repeated and similar findings were found with inability to pass the scope. COMORBIDITIES: 1. History of gastric cancer status post resection in [facility] 20 years ago followed by re-resection at [facility] in 2013 and then treated with radiation and chemotherapy. (Details are missing). 2. History of gastric outlet obstruction with multiple endoscopic evaluations and at least in 2015 and 2016. Five endoscopic evaluations, none of which showed evidence of recurrence of cancer, but the patient was not able to be dilated due to the small pinhole opening that was connecting his stomach to his small intestine. 4. Every day smoker. 5. Esophageal ulcers noted on multiple endoscopic evaluations. 6. History of bilateral nonobstructing renal calculi. 7. History of right hydrocele. 8. Atherosclerotic vascular disease. DATE OF ADMISSION: 05/08/2016 HISTORY OF THE PRESENT ILLNESS: The patient is a very pleasant 60-year-old gentleman with above-mentioned comorbidities and history who I was kindly asked to consult regarding possible surgical management of his gastric outlet obstruction. At my visit, the patient did not have any significant pain. I conducted the visit with an official [facility] employee oil prospecting observer at bedside since the patient spoke minimal Croatian. The patient did not have any shortness of breath or chest pain and did not report any major cardiac or pulmonary disease in the past. ALLERGIES: NO KNOWN DRUG ALLERGIES. MEDICATIONS: At home the patient is on gabapentin, [place], Reglan and Pantoprazole 40 mg p.o. every day. SOCIAL HISTORY: The patient lives with his family. He reports smoking 2 to 3 cigarettes multiple times during the week. No significant drinking reported and no intravenous drug use reported. FAMILY HISTORY: No mention of major medical, surgical or oncologic problems in the family. REVIEW OF SYSTEMS: Other than the above-mentioned, there are no other pertinent positives or pertinent negatives in a complete 14-point review of systems. PHYSICAL EXAMINATION: GENERAL: The patient appears to be a very pleasant gentleman of [place] descent, lying in bed comfortably and in no acute distress. His BMI is 19.0. VITAL SIGNS: Temperature 98.0. Blood pressure 96/73. Pulse 52. Respiratory rate 15, pulse oximetry 100% on room air. HEENT: Normocephalic and atraumatic. Extraocular muscles and hearing are grossly intact bilaterally and symmetrically. Sclerae are nonicteric. Oral cavity is clear; oral mucosa appeared to be pink and moist. Dentition: fair. NECK: Supple. There is no lymphadenopathy or JVD. There is no submental, submandibular or supraclavicular lymphadenopathy. CHEST: Rises symmetrically with each breath; patient is breathing comfortably. There are no audible wheezes, rales or rhonchi on the gross exam. HEART: Pulse is regular and palpable on the left wrist. Capillary refill was normal. Carotid pulses are palpable bilaterally and symmetrically in the neck. EXTREMITIES: Lower extremities contain no pitting edema around the ankles bilaterally and symmetrically. ABDOMEN: Shows 2 scars, one in the midline, and 1 to the left of the midline, presumably corresponding to his 2 prior operations, one in [facility] and one in [facility] 20 years ago in 2013, respectively. There is no evidence of any organomegaly, caput medusae, engorged subcutaneous veins, or ascites. The abdomen is otherwise soft, nondistended, and for the most part nontender. There are no peritoneal signs or guarding. SKIN: Appears to be pink and feels warm to touch. NEUROLOGIC: Awake, alert, and follows commands appropriately. LABORATORY DATA: White blood cell count 5.3, hemoglobin 9.8, platelets 154. Electrolytes are normal. CO2 of 28, creatinine 0.83, total bilirubin 0.1, AST 39, ALT 38, alkaline phosphatase 150, albumin 3.2. Lipase 15. INR 0.96. Urinalysis is negative. IMAGING: Patient had a noncontrast abdominal and pelvic CT on 05/08/2016 that showed marked distention of gastric lumen which contains moderate amount of debris and questionable postsurgical changes in the abdomen with possibility of a gastrojejunostomy. Small bilateral nonobstructing renal calculi were seen and atherosclerotic vascular disease was seen. INTERVENTIONS: The patient underwent upper endoscopy by Dr. Alexis Landeros on 05/09 where significant esophagitis was noted as well as ulcerative anastomosis that was narrowed with pinhole opening. EGD scope could not be passed through the anastomosis and therefore pneumatic dilatation could not could not be done due to high aspiration risk and ulcerative anastomosis that was small in size. Large retained food was noted in the stomach. Biopsies were obtained and pathology is still pending. Dictated By: SHANDRA LOPEZ/JEFRY Conf#: [id number] DID#: [id number]
--- NOTE | 2016-05-09 17:34 | PN ---
Date/Time of Note Date/Time of Note DATE: 05/09/16 TIME: 17:27 Assessment/Plan VTE Prophylaxis VTE Prophylaxis Intervention: SCD's Lines/Catheters IV Catheter Type (from Nrsg): Peripheral IV Assessment/Plan Assessment/Plan - Gastric outlet obstructive obstruction, status post EGD. Dr. Landeros who is covering for Dr. Gallego is following in gastroenterology consultation. Dr. Mar is asked to see patient in general surgery consultation. Continue patient n.p.o., continue IV fluids monitor electrolytes. NG tube to low wall suctioning. - Gastrics cancer status post surgery 2-1/2 years ago, status post chemotherapy and radiation. Patient was followed by Dr. Lou in radiation oncology and Dr. Lawrence oncology. -Tobacco dependence. Tobacco cessation is strongly advised. Case is discussed with , will obtain chest x-ray twelve-lead EKG and 2D echo. Dr. Villanueva will be following patient in oncology consultation. We will continue sequential compression device for deep venous thrombosis prophylaxis and Protonix for peptic ulcer disease prophylaxis. Further recommendations based on clinical course. Plan of care discussed with Dr. Self. Subjective 24 Hr Interval Summary Free Text/Dictation Patient is awake alert denies any pain, states some right and left upper quadrants abdominal pain on palpation. Exam/Review of Systems Vital Signs Vitals Vital Signs Date Time Temp Pulse Resp B/P Pulse Ox O2 Delivery O2 Flow Rate FiO2 05/09/16 08:44 52 15 96/73 100 Room Air 05/09/16 08:39 2.0 05/09/16 08:27 98.0 Intake and Output 05/08/16 05/08/16 05/09/16 15:00 23:00 07:00 Intake Total 1000 ml 140 ml 820 ml Output Total 300 ml 400 ml Balance 700 ml 140 ml 420 ml Exam Constitutional: alert, oriented Psych: no complaints Head: atraumatic, normocephalic Eyes: nl conjunctiva ENMT: nl external ears & nose Neck: non-tender, supple Respiratory: clear to auscultation Cardiovascular: nl pulses, regular rate and rhythm Gastrointestinal: other (Mild left upper and right upper quadrant tenderness), soft Musculoskeletal: nl extremities to inspection Extremities: normal pulses Neurological: STORE SHOPPER II-XII intact Results Result Diagram: 05/09/1625 3/10/17 0525 Results 24 hrs Laboratory Tests Test 05/08/16 18:10 05/09/16 05:25 Alanine Aminotransferase (ALT/SGPT) 38 Albumin 3.2 L Alkaline Phosphatase 150 H Aspartate Amino Transf (AST/SGOT) 39 # Direct Bilirubin 0.00 Indirect Bilirubin 0.1 Lipase 15 L Total Bilirubin 0.1 L Total Protein 5.8 L Activated Partial Thromboplast Time 29.7 Anion Gap 13 Basophils # 0.0 Basophils % 0.4 Blood Urea Nitrogen 20 Calcium Level 8.4 Carbon Dioxide Level 28 # Chloride Level 100 Creatinine 0.83 Eosinophils # 0.1 Eosinophils % 2.1 Glucose Level 94 Hematocrit 30.7 L Hemoglobin 9.8 L INR International Normalized Ratio 0.96 Lymphocytes # 1.0 Lymphocytes % 18.5 Mean Corpuscular Hemoglobin 29.8 Mean Corpuscular Hemoglobin Concent 31.9 L Mean Corpuscular Volume 93.3 Mean Platelet Volume 11.1 H Monocytes # 0.5 Monocytes % 9.2 Neutrophils # 3.7 Neutrophils % 69.6 Nucleated Red Blood Cells # 0.0 Nucleated Red Blood Cells % 0.0 Platelet Count 154 Potassium Level 4.0 Prothrombin Time 12.8 Prothrombin Time Ratio 1.0 Red Blood Count 3.29 L Red Cell Distribution Width 14.6 H Sodium Level 137 White Blood Count 5.3 # Medications Medications Current Medications Dextrose/Sodium Chloride (D5-1/2ns) 1,000 ml @ 70 mls/hr [id number] IV Last administered on 05/09/16 06:18; Admin Dose 70 MLS/HR; Start 05/08/16 at 15:00 Ondansetron HCl (Zofran Inj) 4 mg Q6H PRN IV NAUSEA AND/OR VOMITING; Start 05/08 at 15:00 Morphine Sulfate (morphine) 2 mg Q4H PRN IV PAIN LEVEL 6-10; Start 05/08/16 at 17:30 Pantoprazole (Protonix Iv) 40 mg BID@06,18 IV Last administered on 05/09/16 06 :18; Admin Dose 40 MG; Start 05/08/16 at 20:00 MERISSA PIÑA May 09, 2016 17:34
--- NOTE | 2016-05-09 20:19 | RADRPT ---
PROCEDURE: XR Chest. CLINICAL INDICATION: Check nasogastric tube position. TECHNIQUE: Single frontal view. COMPARISON: None. FINDINGS: The nasogastric tube tip is in the stomach. There is distension of the stomach. The lungs are clear . The heart size is normal. There is no pleural effusion. There is no pneumothorax. IMPRESSION: 1. Nasogastric tube tip in the stomach. Gastric distension. 2. Clear lungs. RPTAT: QQ .Cody Mancera MD, MD Date Time Electronically viewed and signed by .Cody Mancera MD, on 05/09/2016 20:19 .R/
[2016-05-09] MEDS: morphine 2 MG INJ IV PRN (20:43)
[2016-05-10 05:46] LABS: ADD SCAN DIFF NO
[2016-05-10] MEDS: PANTOPRAZOLE 40 MG INJ IV SCH ×2 (05:53→17:49)
[2016-05-10 05:54] LABS: BASOPHILS % 0.1 % (0.0-2.0); EOSINOPHILS # 0.1 10^3/ul (0.0-0.5); EOSINOPHILS % 1.1 % (0.0-7.0); HEMATOCRIT 31.9 % (42.0-52.0); HEMOGLOBIN 10.5 g/dl (14.0-18.0); LYMPHOCYTES # 0.9 10^3/ul (0.8-2.9); LYMPHOCYTES % 12.1 % (15.0-51.0); MEAN CORPUSCULAR HEMOGLOBIN 29.8 pg (29.0-33.0); MEAN CORPUSCULAR HGB CONC 32.9 g/dl (32.0-37.0); MEAN CORPUSCULAR VOLUME 90.6 fl (82.0-101.0); MEAN PLATELET VOLUME 11.1 fl (7.4-10.4); MONOCYTE # 0.4 10^3/ul (0.3-0.9); NEUTROPHIL # 5.9 10^3/ul (1.6-7.5); NEUTROPHILS % 80.3 % (39.0-77.0); PLATELET COUNT 178 10^3/UL (140-415); RED BLOOD COUNT 3.52 10^6/ul (4.70-6.10); WHITE BLOOD COUNT 7.3 10^3/ul (4.8-10.8)
[2016-05-10 06:10] LABS: POTASSIUM 3.8 mmol/L (3.5-5.1)
[2016-05-10 06:12] LABS: CREATININE 0.77 mg/dl (0.61-1.24)
[2016-05-10 06:13] LABS: CALCIUM 8.3 mg/dl (8.4-10.2); PHOSPHORUS 2.9 mg/dl (2.5-4.9)
[2016-05-10 06:14] LABS: MAGNESIUM 1.5 mg/dl (1.7-2.5)
[2016-05-10 07:14] LABS: CARCINOEMBRYONIC ANTIGEN 1.3 ng/ml (0.0-5.0)
[2016-05-10 07:18] LABS: CANCER ANTIGEN 125 < 5.5 U/ml (0.0-35.0)
[2016-05-10 07:35] VITALS: BP 123/76; RESP 18
[2016-05-10] MEDS: DEXTROSE 5%-0.45% NACL 1,000 ML IV SCH ×2 (09:54→13:35)
--- NOTE | 2016-05-10 11:37 | QN ---
Documentation Comment Asked to see patient in coverage for by Dr gonzales as patient was on our list and reviewed records but patient has already been seen by Dr jefferson in heme onc consult. discussed with Dr gonzales and will sign off Please call if any questions. RAJESH RAIN MD May 10, 2016 11:36
--- NOTE | 2016-05-10 11:41 | PN ---
Date/Time of Note Date/Time of Note DATE: 05/10/16 TIME: 11:40 Assessment/Plan VTE Prophylaxis VTE Prophylaxis Intervention: SCD's Lines/Catheters IV Catheter Type (from Nrs): Peripheral IV Assessment/Plan Assessment/Plan - Gastric outlet obstructive obstruction, status post EGD. - per Dr. Landeros covering for Dr. Gallego in gastroenterology consultation. - per Dr. Mar in general surgery consultation. Continue patient n.p.o., continue IV fluids monitor electrolytes. - NG tube to low wall suctioning. - Gastrics cancer status post surgery 2-1/2 years ago, status post chemotherapy and radiation. - - per Dr. Lou in radiation oncology and Dr. Lawrence oncology.Dr. Villanueva will be following patient in oncology consultation. -Tobacco dependence. Tobacco cessation is strongly advised. - Sequential compression device for deep venous thrombosis prophylaxis and Protonix for peptic ulcer disease prophylaxis. Further recommendations based on clinical course. Plan of care discussed with Dr. Self. Subjective 24 Hr Interval Summary Free Text/Dictation NAD, abdominal pain at times, none at present. dw staff Constitutional: improved Eyes: no complaints ENT: no complaints Respiratory: no complaints Cardiovascular: no complaints Gastrointestinal: pain Genitourinary: no complaints Musculoskeletal: no complaints Skin: no complaints Neurologic: no complaints Endocrine: no complaints Lymphatic: no complaints Psychological: no complaints Immunologic: no complaints Exam/Review of Systems Vital Signs Vitals Vital Signs Date Time Temp Pulse Resp B/P Pulse Ox O2 Delivery O2 Flow Rate FiO2 05/10/16 07:35 98.1 64 18 123/76 98 05/09/16 08:44 Room Air 05/09/16 08:39 2.0 Intake and Output 05/09/16 05/09/16 05/10/16 15:00 23:00 07:00 Intake Total 1000 ml 455 ml Output Total 200 ml 640 ml Balance 800 ml -185 ml Exam Constitutional: alert, oriented, well developed Head: atraumatic Eyes: nl conjunctiva ENMT: nl external ears & nose Neck: non-tender Respiratory: clear to auscultation Cardiovascular: nl pulses Gastrointestinal: soft, tender Musculoskeletal: nl extremities to inspection Neurological: nl mental status, nl speech Lymph: nontender Results Result Diagram: 05/10/16 0455 05/10/16 0455 Results 24 hrs Laboratory Tests Test 05/10/16 04:55 Alpha Fetoprotein 2.53 Anion Gap 13 Basophils # 0.0 Basophils % 0.1 Blood Urea Nitrogen 14 CA 125 Antigen < 5.5 CA 19-9 Antigen 4.0 Calcium Level 8.3 L Carbon Dioxide Level 25 Carcinoembryonic Antigen 1.3 Chloride Level 101 Creatinine 0.77 Eosinophils # 0.1 Eosinophils % 1.1 Glucose Level 94 Hematocrit 31.9 L Hemoglobin 10.5 L Lymphocytes # 0.9 Lymphocytes % 12.1 L Magnesium Level 1.5 L Mean Corpuscular Hemoglobin 29.8 Mean Corpuscular Hemoglobin Concent 32.9 Mean Corpuscular Volume 90.6 Mean Platelet Volume 11.1 H Monocytes # 0.4 Monocytes % 6.0 Neutrophils # 5.9 Neutrophils % 80.3 H Nucleated Red Blood Cells # 0.0 Nucleated Red Blood Cells % 0.0 Phosphorus Level 2.9 Platelet Count 178 Potassium Level 3.8 Red Blood Count 3.52 L Red Cell Distribution Width 14.0 Sodium Level 135 White Blood Count 7.3 # Medications Medications Current Medications Dextrose/Sodium Chloride (D5-1/2ns) 1,000 ml @ 70 mls/hr [id number] IV Last administered on 05/09/16 22:29; Admin Dose 70 MLS/HR; Start 05/08/16 at 15:00 Ondansetron HCl (Zofran Inj) 4 mg Q6H PRN IV NAUSEA AND/OR VOMITING; Start 05/08 at 15:00 Morphine Sulfate (morphine) 2 mg Q4H PRN IV PAIN LEVEL 6-10 Last administered on 05/09/16 20:43; Admin Dose 2 MG; Start 05/08/16 at 17:30 Pantoprazole (Protonix Iv) 40 mg BID@06,18 IV Last administered on 05/10/16 05 :53; Admin Dose 40 MG; Start 05/08/16 at 20:00 LAYLA HAMILTON May 10, 2016 11:41
[2016-05-10] MEDS ORDERED: HYDROCODONE/APAP (5/325) TAB PO PRN (12:00)
--- NOTE | 2016-05-10 15:56 | CONS ---
Date/Time of Note Date/Time of Note DATE: 05/10/16 TIME: 15:53 Assessment/Plan Assessment/Plan Chief Complaint/Hosp Course Impression: 1. Gastric outflow obstruction 2. Intractable vomiting with nausea secondary to high grade gastric outlet obstruction 3. esophagitis 4. Right hydrocele. 5. Small bilateral nonobstructing renal calculi. 6 Atherosclerotic vascular disease. 7 Smoker- Current every day smoker(1-2 TIMES PER WEEK, CIGARETTES) 8. h/o stomach cancer s/p RNY surgery Recommendations: 1. NG tube to suctioning 2. Agree with consultation with Dr. Mar 3. smoking cessation 4. continue protonix to bid dosing for his esophagitis 5. consider starting TPN as patient likely will not be able to eat until Dr. Mar's surgical intervention 6. Will need pre-surgical w/u eg echo and cardiology eval. Problems: Consultation Date/Type/Reason Admit Date/Time May 08, 2016 at 13:19 Initial Consult Date 05/08/16 Type of Consultation: GI Referring Provider: NAKUL BROWN MD 24 HR Interval Summary Free Text/Dictation feeling better with NG tube, no n/v Constitutional: improved Exam/Review of Systems Vital Signs Vitals Vital Signs Date Time Temp Pulse Resp B/P Pulse Ox O2 Delivery O2 Flow Rate FiO2 05/10/16 07:35 98.1 64 18 123/76 98 05/09/16 08:44 Room Air 05/09/16 08:39 2.0 Intake and Output 05/09/16 05/09/16 05/10/16 15:00 23:00 07:00 Intake Total 1000 ml 455 ml Output Total 200 ml 640 ml Balance 800 ml -185 ml Exam Constitutional: alert, frail, oriented Psych: anxiety Head: atraumatic, normocephalic Eyes: EOMI, nl conjunctiva, nl lids, nl sclera ENMT: mucosa pink and moist, nl external ears & nose, nl lips & teeth, nl nasal mucosa & septum Neck: non-tender, supple Respiratory: clear to auscultation, normal air movement Cardiovascular: nl pulses, regular rate and rhythm Gastrointestinal: bowel sounds, non-tender, soft Results Result Diagram: 05/10/16 0455 05/10/16 0455 Results 24 hrs Laboratory Tests Test 05/10/16 04:55 Alpha Fetoprotein 2.53 Anion Gap 13 Basophils # 0.0 Basophils % 0.1 Blood Urea Nitrogen 14 CA 125 Antigen < 5.5 CA 19-9 Antigen 4.0 Calcium Level 8.3 L Carbon Dioxide Level 25 Carcinoembryonic Antigen 1.3 Chloride Level 101 Creatinine 0.77 Eosinophils # 0.1 Eosinophils % 1.1 Glucose Level 94 Hematocrit 31.9 L Hemoglobin 10.5 L Lymphocytes # 0.9 Lymphocytes % 12.1 L Magnesium Level 1.5 L Mean Corpuscular Hemoglobin 29.8 Mean Corpuscular Hemoglobin Concent 32.9 Mean Corpuscular Volume 90.6 Mean Platelet Volume 11.1 H Monocytes # 0.4 Monocytes % 6.0 Neutrophils # 5.9 Neutrophils % 80.3 H Nucleated Red Blood Cells # 0.0 Nucleated Red Blood Cells % 0.0 Phosphorus Level 2.9 Platelet Count 178 Potassium Level 3.8 Red Blood Count 3.52 L Red Cell Distribution Width 14.0 Sodium Level 135 White Blood Count 7.3 # Medications Medications Current Medications Dextrose/Sodium Chloride (D5-1/2ns) 1,000 ml @ 70 mls/hr [id number] IV Last administered on 05/10/16 13:35; Admin Dose 70 MLS/HR; Start 05/08/16 at 15:00 Ondansetron HCl (Zofran Inj) 4 mg Q6H PRN IV NAUSEA AND/OR VOMITING; Start 05/08 at 15:00 Morphine Sulfate (morphine) 2 mg Q4H PRN IV PAIN LEVEL 6-10 Last administered on 05/09/16 20:43; Admin Dose 2 MG; Start 05/08/16 at 17:30 Pantoprazole (Protonix Iv) 40 mg BID@06,18 IV Last administered on 05/10/16 05 :53; Admin Dose 40 MG; Start 05/08/16 at 20:00 ELVIA SOTO MD May 10, 2016 15:56
--- NOTE | 2016-05-10 16:17 | PN ---
Date/Time of Note Date/Time of Note DATE: 05/10/16 TIME: 16:15 Assessment/Plan Lines/Catheters IV Catheter Type (from Nrs): Peripheral IV Assessment/Plan Assessment/Plan [facility] Progress Note Date of Service: 05/10/16 Today's Impression & Plan: Overall stable. Awaiting Upper GI with SBFT. Further plans pending these. With above assessment, I've recommended the following for today: 1. Upper GI with SBFT 2. Cont NG 3. Keep inhouse 4. Cont pre-op clearance Thank you again for your great care of this very pleasant patient and wonderful family. If there are any questions, please feel free to call me at [phone]. TOTAL VISIT TIME: 20 minutes of which more than half was spent in [id number] discussion with the patient, possibly including family, as well as coordination of care between multiple physicians and providers. Disclaimer: Inadvertent spelling or grammatical errors are likely due to EHR/ dictation software use and do not reflect on the overall quality of patient care. Updated Clinical Summary: This is a very pleasant 60-year-old gentleman with comorbidity of previous history of gastric cancer status post resection in [facility] about 20 years ago and then recurrence in 2013 when the patient underwent endoscopic biopsy at [facility] in November of 2013. Then subsequently was transferred to [facility] where he underwent re-resection. He was treated with chemotherapy and radiation afterwards. The details are currently missing and we are in the process of obtaining those. He also has a BMI 19.0 mainly due to 10 to 20 year history of difficulty with eating. This history has worsened over the last 3 years. The patient has had multiple endoscopic evaluations at [facility] starting 03/2015, repeated 10/2015, repeated 01/2016 and then 04/03/2016. In all of these endoscopic evaluations, the patient was found to have narrowing of the gastric outlet anastomosis onto the small intestine. The attempts to dilate this area were unsuccessful where the scope could not be passed. Several biopsies on all of these endoscopic attempts were negative. Patient was admitted to [facility] on 05/08/2016 with nausea, vomiting and abdominal pain. Endoscopic evaluation was repeated and similar findings were found with inability to pass the scope. COMORBIDITIES: 1. History of gastric cancer status post resection in [facility] 20 years ago followed by re-resection at [facility] in 2013 and then treated with radiation and chemotherapy. (Details are missing). 2. History of gastric outlet obstruction with multiple endoscopic evaluations and at least in 2016 and 2017. Five endoscopic evaluations, none of which showed evidence of recurrence of cancer, but the patient was not able to be dilated due to the small pinhole opening that was connecting his stomach to his small intestine. 4. Every day smoker. 5. Esophageal ulcers noted on multiple endoscopic evaluations. 6. History of bilateral nonobstructing renal calculi. 7. History of right hydrocele. 8. Atherosclerotic vascular disease. Subjective: No major events or complaints; no abd pain and under control with medications; no n/v/d; no sob or cp; + flatus; - BM; minimal activity Objective: Vitals: See below Exam: GENERAL: On exam, the patient was laying in bed and appeared to be comfortable and in no acute distress. NG minimally bilious and mostly ss. ABDOMEN: Soft, nontender and nondistended. There are no peritoneal signs or guarding. SKIN: Skin appears to be pink and feels warm to touch. NEUROLOGIC: Patient is awake, alert, and follows commands appropriately. Exam/Review of Systems Vital Signs Vitals Vital Signs Date Time Temp Pulse Resp B/P Pulse Ox O2 Delivery O2 Flow Rate FiO2 05/10/16 07:35 98.1 64 18 123/76 98 05/09/16 08:44 Room Air 05/09/16 08:39 2.0 Intake and Output 05/09/16 05/09/16 05/10/16 15:00 23:00 07:00 Intake Total 1000 ml 455 ml Output Total 200 ml 640 ml Balance 800 ml -185 ml Results Result Diagram: 05/10/16 0455 05/10/16 0455 SHANDRA KO M.D. May 10, 2016 16:17
--- NOTE | 2016-05-10 17:23 | RADRPT ---
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 Physician: MERISSA PIÑA Quality: Technically Difficult Study Procedures: Transthoracic echocardiogram with complete 2D, M-Mode, and doppler examination. Indications: Evaluate Left Ventricular function. 2D/M Mode Doppler Measurement Value Normal Ranges Measurement Value Normal Ranges LVIDd 2D 3.9 3.5 - 5.6 cm AV Peak Will 1.0 m/sec LVIDs 2D 2.6 2.1 - 4.1 cm AV Peak PG 4.0 mmHg FS 2D 32.8 % LVOT Peak Will 0.7 m/sec LVPWd 2D 1.1 0.6 - 1.1 cm LVOT Peak PG 2.0 mmHg IVSd 2D 1.1 0.6 - 1.1 cm MV E Peak Will 0.9 m/sec IVS/LVPW 2D 1.0 MV A Peak Will 0.8 m/sec AoR Diam 2D 3.0 2.0 - 3.7 cm MV E/A 1.1 LA/Ao 2D 1 0 - 1 MV Decel Time 268 msec EDV 2D 60.7 cm3 MV E/A 1.1 ESV 2D 18.4 cm3 MR Peak PG 44.0 mmHg LA Dimen 2D 3.4 2.3 - 4.0 cm MR Peak Will 3.3 m/sec TR Peak Will 1.5 m/sec TR Peak PG 9.0 mmHg Findings Left Ventricle: Normal left ventricular systolic function. Normal left ventricular cavity size. Left ventricular wall thickness upper limits of normal. Ejection fraction is visually estimated at 50 %. Abnormal Diastolic Function. Right Ventricle: Normal right ventricular size. Normal right ventricular systolic function. Left Atrium: The left atrium is normal in size. Right Atrium: Right atrium at upper limits of normal. Mitral Valve: Mild mitral leaflet calcification. Mild mitral annular calcification. Mild mitral valve regurgitation. Aortic Valve: Aortic valve not well visualized. Trace aortic valve regurgitation. Tricuspid Valve: Tricuspid valve not well visualized. There is trace tricuspid regurgitation. Pericardium: Normal pericardium with no significant pericardial effusion. Aorta: Normal aortic root. IVC: Normal size and normal respiratory collapse consistent with normal right atrial pressure. Conclusions 1.Normal left ventricular systolic function. Normal left ventricular cavity size. Left ventricular wall thickness upper limits of normal. Ejection fraction is visually estimated at 50 %. Abnormal Diastolic Function. 2.Mild mitral leaflet calcification. Mild mitral annular calcification. Mild mitral valve regurgitation. 3.Aortic valve not well visualized. Trace aortic valve regurgitation. 4.Tricuspid valve not well visualized. There is trace tricuspid regurgitation. Electronically Signed By: Feng Gongora 10-May-2016 17:22:11 -0800 Patient Name: JOSIAH DOE Study Date: 10-May-[id number]
[2016-05-10] MEDS ORDERED: MAGNESIUM SULFATE 1 GM/D5W 100 ML IVPB ONE (17:30)
--- NOTE | 2016-05-10 17:35 | RADRPT ---
Vent Rate: 60 bpm RR Interval: 0 msec LA Interval: 190 msec QRS Duration: 84 msec QT Interval: 444 msec QTC Interval: 444 msec P-R-T [place]: 72 - 82 - 46 degrees Normal sinus rhythm Normal ECG Electronically Signed By: Feng Gongora [id number]
[2016-05-10] MEDS ORDERED: DIATR MEGLU/DIATRIZOATE SODIUM 120 ML BTL ONE (18:36)
--- NOTE | 2016-05-10 19:48 | RADRPT ---
PROCEDURE: Upper GI series CLINICAL INDICATION: Abdominal pain TECHNIQUE: Upper GI series with gastrographin was performed. Digital images were obtained. COMPARISON: CT abdomen and pelvis May 08, 2016 FINDINGS: There is an NG tube in the stomach. No filling defects or ulceration are seen within the stomach. There are no findings of gastric outlet obstruction. Gastrographin flowed without impediment into t he small bowel loops. IMPRESSION: 1. Unremarkable upper GI series. No findings of obstruction, perforation, or decreased intestinal m otility. RPTAT: EE .Jacque Sainz MD, MD Date Time Electronically viewed and signed by .Jacque Sainz MD, MD on 05/10/2016 19:48 .F/
[2016-05-10 20:15] VITALS: BP 131/79; PULSE 65; RESP 16
--- NOTE | 2016-05-10 21:20 | RADRPT ---
PROCEDURE: Gastrographin small bowel follow-through series CLINICAL INDICATION: Abdominal pain. TECHNIQUE: Gastrographin small bowel follow-through series was performed. Multiple overhead digita l images were obtained. 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 Mild colonic constipa tion is present. There is a nasogastric tube in the stomach. The stomach is normal in size and morphology. Normal intestinal motility is present. Gastrographin flowed without impediment into the small bowel loops. The small bowel loops are normal in caliber. There are no filling defects or findings of small shaheed l obstruction. No free air is present. The right colon is completely opacified at 2.5 hours. IMPRESSION: 1. No findings of small bowel obstruction. The right colon completely opacified at 2.5 hours. 2. Unremarkable exam. RPTAT: EE .Jacque Sainz MD, Date Time Electronically viewed and signed by .Jacque Sainz MD, on 05/10/2016 21:19 .F/
[2016-05-11 05:40] LABS: ADD SCAN DIFF NO
[2016-05-11] MEDS: PANTOPRAZOLE 40 MG INJ IV SCH ×2 (05:42→18:41)
[2016-05-11 05:56] LABS: BASOPHILS % 0.1 % (0.0-2.0); EOSINOPHILS % 0.4 % (0.0-7.0); HEMATOCRIT 32.2 % (42.0-52.0); HEMOGLOBIN 10.9 g/dl (14.0-18.0); LYMPHOCYTES # 0.9 10^3/ul (0.8-2.9); LYMPHOCYTES % 11.9 % (15.0-51.0); MEAN CORPUSCULAR HEMOGLOBIN 30.4 pg (29.0-33.0); MEAN CORPUSCULAR HGB CONC 33.9 g/dl (32.0-37.0); MEAN CORPUSCULAR VOLUME 89.9 fl (82.0-101.0); MONOCYTE # 0.6 10^3/ul (0.3-0.9); MONOCYTES % 8.8 % (0.0-11.0); NEUTROPHIL # 5.7 10^3/ul (1.6-7.5); NEUTROPHILS % 78.5 % (39.0-77.0); PLATELET COUNT 168 10^3/UL (140-415); RED BLOOD COUNT 3.58 10^6/ul (4.70-6.10); RED CELL DISTRIBUTION WIDTH 13.9 % (11.5-14.5); WHITE BLOOD COUNT 7.2 10^3/ul (4.8-10.8)
[2016-05-11 06:04] LABS: POTASSIUM 3.8 mmol/L (3.5-5.1)
[2016-05-11 06:07] LABS: CREATININE 0.78 mg/dl (0.61-1.24)
[2016-05-11 06:08] LABS: CALCIUM 8.5 mg/dl (8.4-10.2)
[2016-05-11 07:26] VITALS: BP 118/71; RESP 18
[2016-05-11] MEDS: DEXTROSE 5%-0.45% NACL 1,000 ML IV SCH (10:27)
--- NOTE | 2016-05-11 12:05 | PN ---
Date/Time of Note Date/Time of Note DATE: 05/11/16 TIME: 12:03 Assessment/Plan VTE Prophylaxis VTE Prophylaxis Intervention: SCD's Lines/Catheters IV Catheter Type (from Nrsg): Peripheral IV Assessment/Plan Assessment/Plan - Gastric outlet obstructive obstruction, status post EGD. Dr. Landeros who is covering for Dr. Gallego is following in gastroenterology consultation. Dr. Mar is asked to see patient in general surgery consultation. Continue patient n.p.o., continue IV fluids monitor electrolytes. NG tube to low wall suctioning. - Gastrics cancer status post surgery 2-1/2 years ago, status post chemotherapy and radiation. Patient was followed by Dr. Lou in radiation oncology and Dr. Lawrence oncology. -Tobacco dependence. Tobacco cessation is strongly advised. We will continue sequential compression device for deep venous thrombosis prophylaxis and Protonix for peptic ulcer disease prophylaxis. Further recommendations based on clinical course. Plan of care discussed with Dr. Self. Subjective 24 Hr Interval Summary ENT: no complaints Respiratory: no complaints Cardiovascular: no complaints Gastrointestinal: pain Genitourinary: no complaints Musculoskeletal: no complaints Skin: other Neurologic: no complaints Endocrine: no complaints Lymphatic: no complaints Psychological: no complaints Exam/Review of Systems Vital Signs Vitals Vital Signs Date Time Temp Pulse Resp B/P Pulse Ox O2 Delivery O2 Flow Rate FiO2 05/11/16 07:26 98.8 66 18 118/71 98 05/10/16 20:15 Room Air 05/09/16 08:39 2.0 Intake and Output 05/10/16 05/10/16 05/11/16 15:00 23:00 07:00 Intake Total 545 ml 300 ml 500 ml Output Total 2000 ml 1350 ml Balance 545 ml -1700 ml -850 ml Exam Constitutional: alert Psych: nl mood/affect Head: atraumatic Eyes: nl sclera ENMT: nl external ears & nose Respiratory: clear to auscultation Cardiovascular: nl pulses Gastrointestinal: other (pot op- DDDI), soft Musculoskeletal: nl extremities to inspection Extremities: normal pulses Neurological: nl mental status, nl speech Skin: nl turgor Lymph: nontender Results Result Diagram: 05/11/16 0446 05/11/166 Results 24 hrs Laboratory Tests Test 05/11/16 04:46 Anion Gap 14 Basophils # 0.0 Basophils % 0.1 Blood Urea Nitrogen 12 Calcium Level 8.5 Carbon Dioxide Level 24 Chloride Level 103 Creatinine 0.78 Eosinophils # 0.0 Eosinophils % 0.4 Glucose Level 107 Hematocrit 32.2 L Hemoglobin 10.9 L Lymphocytes # 0.9 Lymphocytes % 11.9 L Mean Corpuscular Hemoglobin 30.4 Mean Corpuscular Hemoglobin Concent 33.9 Mean Corpuscular Volume 89.9 Mean Platelet Volume 11.0 H Monocytes # 0.6 Monocytes % 8.8 Neutrophils # 5.7 Neutrophils % 78.5 H Nucleated Red Blood Cells # 0.0 Nucleated Red Blood Cells % 0.0 Platelet Count 168 Potassium Level 3.8 Red Blood Count 3.58 L Red Cell Distribution Width 13.9 Sodium Level 137 White Blood Count 7.2 Medications Medications Current Medications Dextrose/Sodium Chloride (D5-1/2ns) 1,000 ml @ 70 mls/hr [id number] IV Last administered on 05/11/16 10:27; Admin Dose 70 MLS/HR; Start 05/08/16 at 15:00 Ondansetron HCl (Zofran Inj) 4 mg Q6H PRN IV NAUSEA AND/OR VOMITING; Start 05/08 at 15:00 Morphine Sulfate (morphine) 2 mg Q4H PRN IV PAIN LEVEL 6-10 Last administered on 05/09/16 20:43; Admin Dose 2 MG; Start 05/08/16 at 17:30 Pantoprazole (Protonix Iv) 40 mg BID@06,18 IV Last administered on 05/11/16 05 :42; Admin Dose 40 MG; Start 05/08/16 at 20:00 LAYLA HAMILTON May 11, 2016 12:05
--- NOTE | 2016-05-11 16:37 | CONS ---
Date/Time of Note Date/Time of Note DATE: 05/11/16 TIME: 16:36 Assessment/Plan Assessment/Plan Chief Complaint/Hosp Course Impression: 1. Gastric outflow obstruction 2. Intractable vomiting with nausea secondary to high grade gastric outlet obstruction 3. esophagitis 4. Right hydrocele. 5. Small bilateral nonobstructing renal calculi. 6 Atherosclerotic vascular disease. 7 Smoker- Current every day smoker(1-2 TIMES PER WEEK, CIGARETTES) 8. h/o stomach cancer s/p RNY surgery Recommendations: 1. NG tube to suctioning 2. Agree with consultation with Dr. Mar 3. smoking cessation 4. continue protonix to bid dosing for his esophagitis 5. consider starting TPN as patient likely will not be able to eat until Dr. Mar's surgical intervention 6. awaiting pre-surgical w/u eg echo and cardiology eval. 7. Dr. Gallego to resume care tomorrow Problems: Consultation Date/Type/Reason Admit Date/Time May 08, 2016 at 13:19 Initial Consult Date 05/08/16 Type of Consultation: GI Referring Provider: NAKUL BROWN MD 24 HR Interval Summary Free Text/Dictation No n/v but patient is NPO Exam/Review of Systems Vital Signs Vitals Vital Signs Date Time Temp Pulse Resp B/P Pulse Ox O2 Delivery O2 Flow Rate FiO2 05/11/16 07:26 98.8 66 18 118/71 98 05/10/16 20:15 Room Air 05/09/16 08:39 2.0 Intake and Output 05/10/16 05/10/16 05/11/16 15:00 23:00 07:00 Intake Total 545 ml 300 ml 500 ml Output Total 2000 ml 1350 ml Balance 545 ml -1700 ml -850 ml Exam Constitutional: alert, frail, oriented Psych: anxiety Head: atraumatic, normocephalic Eyes: EOMI, nl conjunctiva, nl lids, nl sclera ENMT: mucosa pink and moist, nl external ears & nose, nl lips & teeth, nl nasal mucosa & septum Neck: non-tender, supple Respiratory: clear to auscultation, normal air movement Cardiovascular: nl pulses, regular rate and rhythm Gastrointestinal: bowel sounds, non-tender, soft Results Result Diagram: 05/11/1644505/11/16445 Results 24 hrs Laboratory Tests Test 3/12/17 04:46 Anion Gap 14 Basophils # 0.0 Basophils % 0.1 Blood Urea Nitrogen 12 Calcium Level 8.5 Carbon Dioxide Level 24 Chloride Level 103 Creatinine 0.78 Eosinophils # 0.0 Eosinophils % 0.4 Glucose Level 107 Hematocrit 32.2 L Hemoglobin 10.9 L Lymphocytes # 0.9 Lymphocytes % 11.9 L Magnesium Level 2.0 Mean Corpuscular Hemoglobin 30.4 Mean Corpuscular Hemoglobin Concent 33.9 Mean Corpuscular Volume 89.9 Mean Platelet Volume 11.0 H Monocytes # 0.6 Monocytes % 8.8 Neutrophils # 5.7 Neutrophils % 78.5 H Nucleated Red Blood Cells # 0.0 Nucleated Red Blood Cells % 0.0 Platelet Count 168 Potassium Level 3.8 Red Blood Count 3.58 L Red Cell Distribution Width 13.9 Sodium Level 137 White Blood Count 7.2 Medications Medications Current Medications Dextrose/Sodium Chloride (D5-1/2ns) 1,000 ml @ 70 mls/hr [id number] IV Last administered on 05/11/16 10:27; Admin Dose 70 MLS/HR; Start 05/08/16 at 15:00 Ondansetron HCl (Zofran Inj) 4 mg Q6H PRN IV NAUSEA AND/OR VOMITING; Start 05/08 at 15:00 Morphine Sulfate (morphine) 2 mg Q4H PRN IV PAIN LEVEL 6-10 Last administered on 05/09/16 20:43; Admin Dose 2 MG; Start 05/08/16 at 17:30 Pantoprazole (Protonix Iv) 40 mg BID@06,18 IV Last administered on 05/11/16 05 :42; Admin Dose 40 MG; Start 05/08/16 at 20:00 ELVIA SOTO MD May 11, 2016 16:37
[2016-05-11 19:38] VITALS: BP 119/79; RESP 14
--- NOTE | 2016-05-11 20:33 | CONS ---
Date/Time of Note Date/Time of Note DATE: 05/11/16 TIME: 20:25 Assessment/Plan Assessment/Plan Chief Complaint/Hosp Course HX GASTRIC CANCER INCOMPLETE RECORD SP Stomach surgery sec to stomach cancer - s/p RNY surgery OLD RECORD-P PER DR VALENTINE NOTE- History of gastric cancer status post resection in [facility] 20 years ago followed by re-resection at [facility] in 2013 and then treated with radiation and chemotherapy. (Details are missing) . History of gastric outlet obstruction with multiple endoscopic evaluations and at least in 2015 and 2016. Five endoscopic evaluations, none of which showed evidence of recurrence of cancer , but the patient was not able to be dilated due to the small pinhole opening that was connecting his stomach to his small intestine. -Gastric outflow obstruction - npo - GI F-UP ENDOSCOPY- NOTED AWAITING CLEARANCE FOR SURGERY -Intractable vomiting with nausea 2/2 high grade gastric outlet obstruction - per GI - Zofran esophagitis Small bilateral nonobstructing renal calculi. Atherosclerotic vascular disease. Smoker- Current every day smoker(1-2 TIMES PER WEEK, CIGARETTES) Right hydrocele. - Urology consult appreciated- Dr Lozada notified Small bilateral nonobstructing renal calculi. - per Urology Atherosclerotic vascular disease. Hx Esophagitis SCDs for DVT prophylaxis Protonix for GI prophylaxis Problems: Consultation Date/Type/Reason Admit Date/Time May 08, 2016 at 13:19 Initial Consult Date 05/08/16 Type of Consultation: [facility] Referring Provider: NAKUL BROWN MD 24 HR Interval Summary Free Text/Dictation ALL NOTED D/W STAFF status post EGD. SEEN BY Dr. Landeros who is covering for Dr. Gallego is following in gastroenterology consultation. Dr. Mar is asked to see patient in general surgery consultation. ON n.p.o., continue IV fluids monitor electrolytes. NG tube to low wall suctioning. HX Gastrics cancer status post surgery 2-1/2 years ago, status post chemotherapy and radiation. Patient was followed by Dr. Lou in radiation oncology and Dr. Lawrence oncology. RECORD - P Exam/Review of Systems Vital Signs Vitals Vital Signs Date Time Temp Pulse Resp B/P Pulse Ox O2 Delivery O2 Flow Rate FiO2 05/11/16 19:38 98.2 65 14 119/79 98 05/10/16 20:15 Room Air 05/09/16 08:39 2.0 Intake and Output 05/10/16 05/10/16 05/11/16 15:00 23:00 07:00 Intake Total 545 ml 300 ml 500 ml Output Total 2000 ml 1350 ml Balance 545 ml -1700 ml -850 ml Exam Constitutional: alert Psych: nl mood/affect Head: atraumatic Eyes: nl sclera ENMT: nl external ears & nose Respiratory: clear to auscultation Cardiovascular: nl pulses Gastrointestinal: other (pot op- DDDI), soft Musculoskeletal: nl extremities to inspection Extremities: normal pulses Neurological: nl mental status, nl speech Skin: nl turgor Lymph: nontender Results Result Diagram: 05/11/1644505/11/166 Results 24 hrs Laboratory Tests Test 05/11/16 04:46 Anion Gap 14 Basophils # 0.0 Basophils % 0.1 Blood Urea Nitrogen 12 Calcium Level 8.5 Carbon Dioxide Level 24 Chloride Level 103 Creatinine 0.78 Eosinophils # 0.0 Eosinophils % 0.4 Glucose Level 107 Hematocrit 32.2 L Hemoglobin 10.9 L Lymphocytes # 0.9 Lymphocytes % 11.9 L Magnesium Level 2.0 Mean Corpuscular Hemoglobin 30.4 Mean Corpuscular Hemoglobin Concent 33.9 Mean Corpuscular Volume 89.9 Mean Platelet Volume 11.0 H Monocytes # 0.6 Monocytes % 8.8 Neutrophils # 5.7 Neutrophils % 78.5 H Nucleated Red Blood Cells # 0.0 Nucleated Red Blood Cells % 0.0 Platelet Count 168 Potassium Level 3.8 Red Blood Count 3.58 L Red Cell Distribution Width 13.9 Sodium Level 137 White Blood Count 7.2 Medications Medications Current Medications Dextrose/Sodium Chloride (D5-1/2ns) 1,000 ml @ 70 mls/hr [id number] IV Last administered on 05/11/16 10:27; Admin Dose 70 MLS/HR; Start 05/08/16 at 15:00 Ondansetron HCl (Zofran Inj) 4 mg Q6H PRN IV NAUSEA AND/OR VOMITING; Start 05/08 at 15:00 Morphine Sulfate (morphine) 2 mg Q4H PRN IV PAIN LEVEL 6-10 Last administered on 05/09/16 20:43; Admin Dose 2 MG; Start 05/08/16 at 17:30 Pantoprazole (Protonix Iv) 40 mg BID@,18 IV Last administered on 05/11/16t 18 :41; Admin Dose 40 MG; Start 05/08/16 at 20:00 DIANNA SCOTT MD May 11, 2016 20:33
[2016-05-12] MEDS: DEXTROSE 5%-0.45% NACL 1,000 ML IV SCH ×2 (00:41→15:44)
[2016-05-12] MEDS: morphine 2 MG INJ IV PRN (00:44)
[2016-05-12] MEDS: PANTOPRAZOLE 40 MG INJ IV SCH ×2 (05:32→17:50)
[2016-05-12 05:37] LABS: ADD SCAN DIFF NO
[2016-05-12 05:43] LABS: BASOPHILS % 0.1 % (0.0-2.0); EOSINOPHILS % 0.4 % (0.0-7.0); HEMATOCRIT 29.3 % (42.0-52.0); LYMPHOCYTES % 12.1 % (15.0-51.0); MEAN CORPUSCULAR HEMOGLOBIN 30.7 pg (29.0-33.0); MEAN CORPUSCULAR HGB CONC 34.1 g/dl (32.0-37.0); MEAN CORPUSCULAR VOLUME 89.9 fl (82.0-101.0); MEAN PLATELET VOLUME 10.8 fl (7.4-10.4); MONOCYTE # 0.8 10^3/ul (0.3-0.9); MONOCYTES % 9.2 % (0.0-11.0); NEUTROPHIL # 6.5 10^3/ul (1.6-7.5); PLATELET COUNT 139 10^3/UL (140-415); RED BLOOD COUNT 3.26 10^6/ul (4.70-6.10); RED CELL DISTRIBUTION WIDTH 14.1 % (11.5-14.5); WHITE BLOOD COUNT 8.3 10^3/ul (4.8-10.8)
[2016-05-12 05:55] LABS: POTASSIUM 3.7 mmol/L (3.5-5.1)
[2016-05-12 05:58] LABS: CREATININE 0.79 mg/dl (0.61-1.24)
[2016-05-12 05:59] LABS: CALCIUM 8.3 mg/dl (8.4-10.2)
[2016-05-12 07:22] VITALS: BP 103/64; RESP 18
--- NOTE | 2016-05-12 11:37 | CONS ---
Date/Time of Note Date/Time of Note DATE: 05/12/16 TIME: 11:37 Assessment/Plan Assessment/Plan Chief Complaint/Hosp Course HX GASTRIC CANCER SP Stomach surgery sec to stomach cancer - s/p RNY surgery OLD RECORD-P PER DR VALENTINE NOTE- History of gastric cancer status post resection in [facility] 20 years ago followed by re-resection at [facility] in 2013 and then treated with radiation and chemotherapy. (Details are missing) . History of gastric outlet obstruction with multiple endoscopic evaluations and at least in 2015 and 2016. Five endoscopic evaluations, none of which showed evidence of recurrence of cancer , but the patient was not able to be dilated due to the small pinhole opening that was connecting his stomach to his small intestine. -Gastric outflow obstruction - npo - GI F-UP ENDOSCOPY- NOTED AWAITING CLEARANCE FOR SURGERY -Intractable vomiting with nausea 2/2 high grade gastric outlet obstruction - per GI - Zofran esophagitis Small bilateral nonobstructing renal calculi. Atherosclerotic vascular disease. Smoker- Current every day smoker(1-2 TIMES PER WEEK, CIGARETTES) Right hydrocele. - Urology consult appreciated- Dr Lozada notified Small bilateral nonobstructing renal calculi. - per Urology Atherosclerotic vascular disease. Hx Esophagitis SCDs for DVT prophylaxis Protonix for GI prophylaxis Problems: Consultation Date/Type/Reason Admit Date/Time May 08, 2016 at 13:19 Initial Consult Date 05/08/16 Type of Consultation: [facility] Referring Provider: NAKUL BROWN MD 24 HR Interval Summary Free Text/Dictation Patient denies any nausea vomiting, pain is well controlled, patient continues to have NG tube to low wall suctioning. Exam/Review of Systems Vital Signs Vitals Vital Signs Date Time Temp Pulse Resp B/P Pulse Ox O2 Delivery O2 Flow Rate FiO2 05/12/16 07:22 98.3 63 18 103/64 98 05/10/16 20:15 Room Air 05/09/16 08:39 2.0 Intake and Output 05/11/16 05/11/16 05/12/16 15:00 23:00 07:00 Intake Total 300 ml 600 ml 700 ml Output Total 600 ml 200 ml Balance 300 ml 0 ml 500 ml Exam Exam Constitutional: alert, oriented Psych: no complaints Head: atraumatic, normocephalic Eyes: nl conjunctiva ENMT: nl external ears & nose Neck: non-tender, supple Respiratory: clear to auscultation Cardiovascular: nl pulses, regular rate and rhythm Gastrointestinal: other (Mild left upper and right upper quadrant tenderness), soft Musculoskeletal: nl extremities to inspection Extremities: normal pulses Neurological: WEB PROJECT MANAGER II-XII intact Results Result Diagram: 05/12/16 0501 05/12/16 0501 Results 24 hrs Laboratory Tests Test 05/12/16 05:01 Anion Gap 14 Basophils # 0.0 Basophils % 0.1 Blood Urea Nitrogen 13 Calcium Level 8.3 L Carbon Dioxide Level 24 Chloride Level 102 Creatinine 0.79 Eosinophils # 0.0 Eosinophils % 0.4 Glucose Level 108 Hematocrit 29.3 L Hemoglobin 10.0 L Lymphocytes # 1.0 Lymphocytes % 12.1 L Mean Corpuscular Hemoglobin 30.7 Mean Corpuscular Hemoglobin Concent 34.1 Mean Corpuscular Volume 89.9 Mean Platelet Volume 10.8 H Monocytes # 0.8 Monocytes % 9.2 Neutrophils # 6.5 Neutrophils % 78.0 H Nucleated Red Blood Cells # 0.0 Nucleated Red Blood Cells % 0.0 Platelet Count 139 L Potassium Level 3.7 Red Blood Count 3.26 L Red Cell Distribution Width 14.1 Sodium Level 136 White Blood Count 8.3 Medications Medications Current Medications Dextrose/Sodium Chloride (D5-1/2ns) 1,000 ml @ 70 mls/hr [id number] IV Last administered on 05/12/16 00:41; Admin Dose 70 MLS/HR; Start 05/08/16 at 15:00 Ondansetron HCl (Zofran Inj) 4 mg Q6H PRN IV NAUSEA AND/OR VOMITING; Start 05/08 at 15:00 Morphine Sulfate (morphine) 2 mg Q4H PRN IV PAIN LEVEL 6-10 Last administered on 05/12/16 00:44; Admin Dose 2 MG; Start 05/08/16 at 17:30 Pantoprazole (Protonix Iv) 40 mg BID@06,18 IV Last administered on 05/12/16 05 :32; Admin Dose 40 MG; Start 05/08/16 at 20:00 DIANNA SCOTT MD May 12, 2016 11:37
--- NOTE | 2016-05-12 17:07 | PN ---
Date/Time of Note Date/Time of Note DATE: 05/12/16 TIME: 17:04 Assessment/Plan Lines/Catheters IV Catheter Type (from Nrs): Peripheral IV Assessment/Plan Assessment/Plan [facility] Progress Note Date of Service: 05/12/16 Today's Impression & Plan: Overall stable. Upper GI with SBFT showed no other pathology other than GOO. NG decompression ongoing and will assist with safer revision (on the schedule for Cari am). With above assessment, I've recommended the following for today: 1. CT abd/pelvis with IV and oral contrast 2. Cont NG 3. Keep inhouse 4. Cont pre-op clearance 5. Social work/case management to please coordinate with my office and set up a time for family meeting with emergency care attendant to finalize consent process Thank you again for your great care of this very pleasant patient and wonderful family. If there are any questions, please feel free to call me at [phone]. TOTAL VISIT TIME: 20 minutes of which more than half was spent in [id number] discussion with the patient, possibly including family, as well as coordination of care between multiple physicians and providers. Disclaimer: Inadvertent spelling or grammatical errors are likely due to EHR/ dictation software use and do not reflect on the overall quality of patient care. Updated Clinical Summary: This is a very pleasant 60-year-old gentleman with comorbidity of previous history of gastric cancer status post resection in [facility] about 20 years ago and then recurrence in 2013 when the patient underwent endoscopic biopsy at [facility] in November of 2013. Then subsequently was transferred to [facility] where he underwent re-resection. He was treated with chemotherapy and radiation afterwards. The details are currently missing and we are in the process of obtaining those. He also has a BMI 19.0 mainly due to 10 to 20 year history of difficulty with eating. This history has worsened over the last 3 years. The patient has had multiple endoscopic evaluations at [facility] starting 03/2015, repeated 10/2015, repeated 01/2016 and then 04/03/2016. In all of these endoscopic evaluations, the patient was found to have narrowing of the gastric outlet anastomosis onto the small intestine. The attempts to dilate this area were unsuccessful where the scope could not be passed. Several biopsies on all of these endoscopic attempts were negative. Patient was admitted to [facility] on 05/08/2016 with nausea, vomiting and abdominal pain. Endoscopic evaluation was repeated and similar findings were found with inability to pass the scope. COMORBIDITIES: 1. History of gastric cancer status post resection in [facility] 20 years ago followed by re-resection at [facility] in 2013 and then treated with radiation and chemotherapy. (Details are missing). 2. History of gastric outlet obstruction with multiple endoscopic evaluations and at least in 2015 and 2016. Five endoscopic evaluations, none of which showed evidence of recurrence of cancer, but the patient was not able to be dilated due to the small pinhole opening that was connecting his stomach to his small intestine. 4. Every day smoker. 5. Esophageal ulcers noted on multiple endoscopic evaluations. 6. History of bilateral nonobstructing renal calculi. 7. History of right hydrocele. 8. Atherosclerotic vascular disease. Subjective: No major events or complaints; no abd pain and under control with medications; no n/v/d; no sob or cp; + flatus; + BM; minimal activity Objective: Vitals: See below Exam: GENERAL: On exam, the patient was laying in bed and appeared to be comfortable and in no acute distress. NG minimally bilious and mostly ss. ABDOMEN: Soft, nontender and nondistended. There are no peritoneal signs or guarding. SKIN: Skin appears to be pink and feels warm to touch. NEUROLOGIC: Patient is awake, alert, and follows commands appropriately. Exam/Review of Systems Vital Signs Vitals Vital Signs Date Time Temp Pulse Resp B/P Pulse Ox O2 Delivery O2 Flow Rate FiO2 05/12/16 07:22 98.3 63 18 103/64 98 05/10/16 20:15 Room Air 05/09/16 08:39 2.0 Intake and Output 05/11/16 05/11/16 05/12/16 15:00 23:00 07:00 Intake Total 300 ml 600 ml 700 ml Output Total 600 ml 200 ml Balance 300 ml 0 ml 500 ml Results Result Diagram: 05/12/16 0501 05/12/16 0501 SHANDRA KO M.D. May 12, 2016 17:07
--- NOTE | 2016-05-12 17:36 | PN ---
Date/Time of Note Date/Time of Note DATE: 05/12/16 TIME: 17:31 Assessment/Plan VTE Prophylaxis VTE Prophylaxis Intervention: SCD's Lines/Catheters IV [facility]from [facility] Peripheral IV Assessment/Plan Chief Complaint/Hosp Course Assessment/Plan - Gastric outlet obstructive obstruction, status post EGD. Dr. Landeros who is covering for Dr. Gallego is following in gastroenterology consultation. Dr. Mar is following patient in general surgery consultation. Continue patient n.p.o., NG tube to low wall suctioning. We will start TPN and lipids after PICC line insertion. Dr. Gongora is asked to see patient in for cardiology clearance. - Gastrics cancer status post surgery 2-1/2 years ago, status post chemotherapy and radiation. Patient was followed as an outpatient by Dr. Lou in radiation oncology and Dr. Lawrence oncology. -Tobacco dependence. Tobacco cessation is strongly advised. Continue sequential compression device for deep venous thrombosis prophylaxis and Protonix for peptic ulcer disease prophylaxis. Further recommendations based on clinical course. Plan of care discussed with Dr. Self. Problems: Subjective 24 Hr Interval Summary Free Text/Dictation Patient denies any nausea vomiting, pain is well controlled, patient continues to have NG tube to low wall suctioning. Exam/Review of Systems Vital Signs Vitals Vital Signs Date Time Temp Pulse Resp B/P Pulse Ox O2 Delivery O2 Flow Rate FiO2 05/12/16 07:22 98.3 63 18 103/64 98 05/10/16 20:15 Room Air 05/09/16 08:39 2.0 Intake and Output 05/11/16 05/11/16 05/12/16 15:00 23:00 07:00 Intake Total 300 ml 600 ml 700 ml Output Total 600 ml 200 ml Balance 300 ml 0 ml 500 ml Exam Constitutional: alert, oriented Psych: no complaints Head: atraumatic, normocephalic Eyes: nl conjunctiva ENMT: nl external ears & nose Neck: non-tender, supple Respiratory: clear to auscultation Cardiovascular: nl pulses, regular rate and rhythm Gastrointestinal: other (Mild left upper and right upper quadrant tenderness), soft Musculoskeletal: nl extremities to inspection Extremities: normal pulses Neurological: PAPER SORTER AND COUNTER II-XII intact Results Result Diagram: 05/12/16 0501 05/12/16 0501 Results 24 hrs Laboratory Tests Test 05/12/16 05:01 Anion Gap 14 Basophils # 0.0 Basophils % 0.1 Blood Urea Nitrogen 13 Calcium Level 8.3 L Carbon Dioxide Level 24 Chloride Level 102 Creatinine 0.79 Eosinophils # 0.0 Eosinophils % 0.4 Glucose Level 108 Hematocrit 29.3 L Hemoglobin 10.0 L Lymphocytes # 1.0 Lymphocytes % 12.1 L Mean Corpuscular Hemoglobin 30.7 Mean Corpuscular Hemoglobin Concent 34.1 Mean Corpuscular Volume 89.9 Mean Platelet Volume 10.8 H Monocytes # 0.8 Monocytes % 9.2 Neutrophils # 6.5 Neutrophils % 78.0 H Nucleated Red Blood Cells # 0.0 Nucleated Red Blood Cells % 0.0 Platelet Count 139 L Potassium Level 3.7 Red Blood Count 3.26 L Red Cell Distribution Width 14.1 Sodium Level 136 White Blood Count 8.3 Medications Medications Current Medications Dextrose/Sodium Chloride (D5-1/2ns) 1,000 ml @ 70 mls/hr [id number] IV Last administered on 05/12/16 15:44; Admin Dose 70 MLS/HR; Start 05/08/16 at 15:00 Ondansetron HCl (Zofran Inj) 4 mg Q6H PRN IV NAUSEA AND/OR VOMITING; Start 05/08 at 15:00 Morphine Sulfate (morphine) 2 mg Q4H PRN IV PAIN LEVEL 6-10 Last administered on 05/12/16 00:44; Admin Dose 2 MG; Start 05/08/16 at 17:30 Pantoprazole (Protonix Iv) 40 mg BID@06,18 IV Last administered on 05/12/16 05 :32; Admin Dose 40 MG; Start 05/08/16 at 20:00 MERISSA PIÑA May 12, 2016 17:36
[2016-05-12] MEDS ORDERED: LIDOCAINE 1% (MDV) 20 ML INJ SC ONE (18:00)
--- NOTE | 2016-05-12 19:10 | CONS ---
DATE OF ADMISSION: 05/08/2016 DATE OF CONSULTATION: 05/12/2016 TYPE OF CONSULTATION: Cardiology. REASON FOR CONSULTATION: Preoperative evaluation. REQUESTING PHYSICIAN: Dr. Sofia Self HISTORY OF PRESENT ILLNESS: Mr. Dan is a 60-year-old male with a history of gastric cancer who had initially presented with complaints of abdominal pain, decreased bowel movements, vomiting afte r eating food and drinking fluids, weight loss. Initially upon arrival, temperature 97.8, blood pre ssure 108/74, pulse 64, respiratory rate 18, saturating 100%. The patient's labs were notable for a white cell count of 8.3, hemoglobin 10, platelet count of 139. Sodium 136, potassium ____, creatin ine of 0.79, BUN of 13. INR 0.96. UA negative. The patient underwent an abdominopelvic CT reveali ng study limited by lack of intravenous and oral contrast, marked distention of the gastric lumen wh ich contains moderate amount of debris, small bilateral nonobstructive renal calculi. The patient u nderwent a chest x-ray revealing clear lungs. The patient had an upper GI series revealing no findi ng of obstruction, perforation or decreased intestinal motility and a small-bowel x-ray that reveale d no findings of small-bowel obstruction. The patient consulted by the GI and surgical services. G I services attempted to do EGD and due to findings of high-grade gastric outlet obstruction were atul ble to pass their scope. The patient has now been evaluated by Surgery with plans for surgical kamilla tment of his gastric obstruction. The patient at this time denies chest pain, shortness of breath, prior myocardial infarction. PAST MEDICAL HISTORY: As above in HPI. MEDICATIONS CURRENTLY IN HOSPITAL: 1. Protonix. 2. Morphine. 3. IV fluid hydration. 4. Zofran. ALLERGIES: NO KNOWN DRUG ALLERGIES. SOCIAL HISTORY: Positive tobacco. No ETOH, illicit drug use. FAMILY HISTORY: Negative for sudden cardiac or early CAD. REVIEW OF SYSTEMS: As above in HPI. CONSTITUTIONAL: No fevers, chills. PULMONARY: Shortness of breath. CARDIOVASCULAR: No current chest pain. GASTROINTESTINAL: Gastric outlet obstruction. GENITOURINARY: No hematuria. MUSCULOSKELETAL: Degenerative joint disease. PSYCHIATRIC: The patient denies depression. NEUROLOGIC: No documented history of CVA. PHYSICAL EXAMINATION: VITAL SIGNS: Temperature 97.7, blood pressure most recently 103/64, pulse 63, respiratory rate 18, saturating 98%. GENERAL: The patient is alert, awake. No acute distress. NECK: JVP approximately 8 cm water. CHEST: Fair air movement throughout. HEART: Regular rate and rhythm. Normal S1, S2. I/ systolic murmur. Nondisplaced PMI. ABDOMEN: Positive bowel sounds, soft. EXTREMITIES: No pitting edema. Pulses 1+ bilaterally at posterior tibial. LABORATORY DATA: As above in HPI with most recently from today: White cell count of 8.3, hemoglobi n 10, platelet count of 139. Sodium 136, potassium ____, creatinine 0.79, BUN 13. IMAGING STUDIES: As above in HPI. No further imaging studies for my review at this time. ELECTROCARDIOGRAM: EKG from 05/10 revealing normal sinus rhythm, rate of 60, normal axis, normal in tervals with isolated T-wave flattening in aVL, low voltage in the limb leads. A 2-D echo done on 05/10, interpreted by myself having EF of 50% with diastolic dysfunction, mild mi tral regurgitation, trace tricuspid regurgitation, trace aortic regurgitation. IMPRESSION: 1. Preoperative evaluation prior to surgery for gastric outlet obstruction. 2. Abnormal electrocardiogram with T-wave flattening in aVL. 3. Diastolic dysfunction by 2-D echo done this admission. 4. Hypertension, labile with borderline hypotension. 5. Gastric outlet obstruction. 6. Nausea, vomiting secondary to gastric outlet obstruction. 7. Weight loss secondary to gastric outlet obstruction. 8. Recent cessation of tobacco usage. RECOMMENDATIONS: 1. At this time would check serial EKGs, assess for any significant changes, thus repeat EKG in the morning, EKG for any complaints of chest pain or change in rhythm. 2. Will send troponins q.6 times 2 to ensure that the patient's EKG abnormalities are chronic in na [facility] and not due to any recent acute coronary syndrome. 3. If the patient's troponins return negative, EKG without new changes, at that time the patient wi ll be without cardiac contraindication to proceeding to the OR on current therapy without further no ninvasive evaluation. The patient will be at moderate risk for cardiovascular complications but merna l have no cardiac contraindication. Postoperatively, would check a 12-lead EKG to assess for any si gnificant changes and watch closely for signs and symptoms of cardiovascular complications including but not limited to the onset of chest pain, shortness of breath, congestive heart failure, uncontro lled cardiac arrhythmias. Thank you for allowing me to take part in the care of this patient. I will continue to follow along very closely with you with further recommendations to be made as the patient progresses through his inpatient hospital clinical course. Dictated By: AVEL NOGUERA/JEFRY Conf#: [id number] DID#: [id number] CC: SOFIA SELF MD;*EndCC*
[2016-05-12 20:30] VITALS: BP 102/61; PULSE 61; RESP 18
[2016-05-13] MEDS: PANTOPRAZOLE 40 MG INJ IV SCH ×2 (05:48→17:33)
[2016-05-13 05:50] LABS: ADD SCAN DIFF NO
[2016-05-13] MEDS: DEXTROSE 5%-0.45% NACL 1,000 ML IV SCH ×2 (05:51→09:24)
[2016-05-13 05:56] LABS: BASOPHILS % 0.2 % (0.0-2.0); EOSINOPHILS # 0.1 10^3/ul (0.0-0.5); EOSINOPHILS % 0.9 % (0.0-7.0); HEMATOCRIT 28.8 % (42.0-52.0); HEMOGLOBIN 9.9 g/dl (14.0-18.0); LYMPHOCYTES # 0.8 10^3/ul (0.8-2.9); LYMPHOCYTES % 12.5 % (15.0-51.0); MEAN CORPUSCULAR HEMOGLOBIN 30.7 pg (29.0-33.0); MEAN CORPUSCULAR HGB CONC 34.4 g/dl (32.0-37.0); MEAN CORPUSCULAR VOLUME 89.2 fl (82.0-101.0); MEAN PLATELET VOLUME 10.9 fl (7.4-10.4); MONOCYTE # 0.6 10^3/ul (0.3-0.9); MONOCYTES % 9.7 % (0.0-11.0); NEUTROPHILS % 76.4 % (39.0-77.0); PLATELET COUNT 146 10^3/UL (140-415); RED BLOOD COUNT 3.23 10^6/ul (4.70-6.10); WHITE BLOOD COUNT 6.6 10^3/ul (4.8-10.8)
[2016-05-13 06:06] LABS: POTASSIUM 3.7 mmol/L (3.5-5.1)
[2016-05-13 06:08] LABS: ALBUMIN/GLOBULIN RATIO 1.11; BILIRUBIN,INDIRECT 0.5 mg/dl (0-1.1); BILIRUBIN,TOTAL 0.5 mg/dl (0.2-1.3); CREATININE 0.77 mg/dl (0.61-1.24); TOTAL PROTEIN 5.7 g/dl (6.1-8.1)
[2016-05-13 06:09] LABS: CALCIUM 8.4 mg/dl (8.4-10.2); MAGNESIUM 1.7 mg/dl (1.7-2.5); PHOSPHORUS 3.4 mg/dl (2.5-4.9)
[2016-05-13 06:10] LABS: CHOL/HDL RATIO 2.9 RATIO
[2016-05-13 06:16] LABS: PREALBUMIN 10.8 mg/dl (17.6-36.0)
[2016-05-13 07:22] VITALS: BP 95/61; RESP 22
--- NOTE | 2016-05-13 10:20 | CONS ---
Date/Time of Note Date/Time of Note DATE: 05/13/16 TIME: 10:18 Assessment/Plan Assessment/Plan Additional Assessment/Plan 1. Preoperative evaluation prior to surgery for gastric outlet obstruction- stable now, ok to proceed as needed. 2. Abnormal electrocardiogram with T-wave flattening in aVL- no Cp, r/o [place], doubt ischemia. 3. Diastolic dysfunction by 2-D echo done this admission- chronic CHF, euvolemic by exam. 4. Hypertension, labile with borderline hypotension- OK to hydrate as needed. 5. Gastric outlet obstruction- surgical team follows. 6. Nausea, vomiting secondary to gastric outlet obstruction. 7. Weight loss secondary to gastric outlet obstruction. 8. Recent cessation of tobacco usage- encourage to persist. Consultation Date/Type/Reason Admit Date/Time May 08, 2016 at 13:19 Initial Consult Date 05/08/16 Type of Consultation: [facility] Referring Provider: NAKUL BROWN MD 24 HR Interval Summary Free Text/Dictation NO acute events NGT in - not on tele - con't to keep euvolemic. ROS: No fever, no chills, no nausea, no vomiting, no diarrhea/constipation No recent weight changes No chest pain, no PND, no orthopnea No dizziness, blurred vision No thirst, no heat or cold intolerance Exam/Review of Systems Vital Signs Vitals Vital Signs Date Time Temp Pulse Resp B/P Pulse Ox O2 Delivery O2 Flow Rate FiO2 05/13/16 07:22 97.9 55 22 95/61 99 05/12/16 20:30 Room Air 05/09/16 08:39 2.0 Intake and Output 05/12/16 05/12/16 05/13/16 15:00 23:00 07:00 Intake Total 800 ml 900 ml Output Total 0 ml 1100 ml Balance 0 ml -300 ml 900 ml Exam General: WN/WD/NAD, AOx 3 HEENT: Unicetric/atraumatic/EOMI (follow commands) NECK: JVD elevated, no thyromegaly, NGT in Lymph: no lymphadenopathy HEART: regular with no S3, II/ systolic murmur at apex LUNGS: Coarse sounds ABD: soft, NT, ND, +BS : Intact Neuro: non focal SKIN: chronic changes EXT: trace edema Results Result Diagram: 3/14/17 0525 3/14/17 0525 Results 24 hrs Laboratory Tests Test 05/13/16 00:50 05/13/16 05:25 Troponin I 0.025 < 0.012 Alanine Aminotransferase (ALT/SGPT) 22 Albumin 3.0 L Albumin/Globulin Ratio 1.11 Alkaline Phosphatase 179 H Anion Gap 12 Aspartate Amino Transf (AST/SGOT) 12 L Basophils # 0.0 Basophils % 0.2 Blood Urea Nitrogen 12 Calcium Level 8.4 Carbon Dioxide Level 25 Chloride Level 103 Cholesterol Level 148 Cholesterol/HDL Ratio 2.9 Creatinine 0.77 Direct Bilirubin 0.00 Eosinophils # 0.1 Eosinophils % 0.9 Globulin 2.70 Glucose Level 96 HDL Cholesterol 50 Hematocrit 28.8 L Hemoglobin 9.9 L Indirect Bilirubin 0.5 LDL Cholesterol, Calculated 86 Lymphocytes # 0.8 Lymphocytes % 12.5 L Magnesium Level 1.7 Mean Corpuscular Hemoglobin 30.7 Mean Corpuscular Hemoglobin Concent 34.4 Mean Corpuscular Volume 89.2 Mean Platelet Volume 10.9 H Monocytes # 0.6 Monocytes % 9.7 Neutrophils # 5.0 Neutrophils % 76.4 Nucleated Red Blood Cells # 0.0 Nucleated Red Blood Cells % 0.0 Phosphorus Level 3.4 Platelet Count 146 Potassium Level 3.7 Prealbumin 10.8 L Red Blood Count 3.23 L Red Cell Distribution Width 14.0 Sodium Level 136 Total Bilirubin 0.5 Total Protein 5.7 L Triglycerides Level 62 White Blood Count 6.6 # Medications Medications Current Medications Dextrose/Sodium Chloride (D5-1/2ns) 1,000 ml @ 70 mls/hr [id number] IV Last administered on 05/13/16 05:51; Admin Dose 70 MLS/HR; Start 05/08/16 at 15:00 Ondansetron HCl (Zofran Inj) 4 mg Q6H PRN IV NAUSEA AND/OR VOMITING; Start 05/08 at 15:00 Morphine Sulfate (morphine) 2 mg Q4H PRN IV PAIN LEVEL 6-10 Last administered on 05/12/16 00:44; Admin Dose 2 MG; Start 05/08/16 at 17:30 Pantoprazole (Protonix Iv) 40 mg BID@06,18 IV Last administered on 05/13/16 05 :48; Admin Dose 40 MG; Start 05/08/16 at 20:00 RADHA CARRINGTON MD May 13, 2016 10:20
[2016-05-13] MEDS ORDERED: IOHEXOL 300MG/ML 30 ML BTL PO STA (10:21)
[2016-05-13] MEDS ORDERED: IOHEXOL 14.3 MG(I)/ML (ADULT) BTL PO ONE (10:30)
[2016-05-13] MEDS ORDERED: SOD CHLORIDE 0.9% 100 ML ONE (13:15)
[2016-05-13] MEDS ORDERED: IOHEXOL 300MG/ML 150 ML BTL ONE (13:15)
--- NOTE | 2016-05-13 14:12 | PN ---
Date/Time of Note Date/Time of Note DATE: 05/13/16 TIME: 13:56 Assessment/Plan Lines/Catheters IV Catheter Type (from [facility]): Peripheral IV Alex in Place (from [facility]): No Assessment/Plan Assessment/Plan [facility] Progress Note Date of Service: 05/13/16 Today's Impression & Plan: Overall stable. CT scan with IV/oral contrast did not add much more new info to the clinical picture (official report pending); had a chance to review prior records and discuss with patient and his son with help of [facility] altitude chamber technician. Explained clinical picture in detail to patient and family and reviewed options , recommended surgery with full details of possible findings, risks, benefits and alternatives and obtained patient's permission for the operation. Answered all questions. With above assessment, I've recommended the following for today: 1. Cont current cares 2. Cont NG 3. Keep inhouse 4. Cont pre-op clearance 5. To OR on am Thank you again for your great care of this very pleasant patient and wonderful family. If there are any questions, please feel free to call me at [phone]. TOTAL VISIT TIME: 20 minutes of which more than half was spent in [id number] discussion with the patient, possibly including family, as well as coordination of care between multiple physicians and providers. Disclaimer: Inadvertent spelling or grammatical errors are likely due to EHR/ dictation software use and do not reflect on the overall quality of patient care. Updated Clinical Summary: This is a very pleasant 60-year-old gentleman with comorbidity of previous history of gastric cancer status post resection in [facility] about 20 years ago and then recurrence in 2013 when the patient underwent endoscopic biopsy at [facility] in November of 2013. Then subsequently was transferred to [facility] where he underwent re-resection with RY anastomosis (also included partial resection of wall of transverse colon with repair. Final pathology: extensive poorly differentiated, minimally mucin producing 7.3 cm, G3 adenocarcinoma of the stomach extending focally to distal resected margin of specimen associated with duodenum (positive margin; R1 resection), - LV, - perineural invasion, 6/11 nodes positive, negative proximal margin, TNM stage: [id number], and Her2 status unknown. Readmitted one month after surgery where EGD 01/24/14 showed gastric outlet obstruction with edema and ulceration at the anastomosis, as well as LA class IV esophageal ulceration. He was subsequently treated with chemotherapy and radiation. The details are currently missing and we are in the process of obtaining those. He also has a BMI 19.0 mainly due to 10 to 20 year history of difficulty with eating. This history has worsened over the last 3 years. The patient has had multiple endoscopic evaluations at [facility] starting 03/2015, repeated 10/2015, repeated 01/2016 and then 04/03/2016. In all of these endoscopic evaluations, the patient was found to have narrowing of the gastric outlet anastomosis onto the small intestine. The attempts to dilate this area were unsuccessful where the scope could not be passed. Several biopsies on all of these endoscopic attempts were negative. Patient was admitted to [facility] on 05/08/2016 with nausea, vomiting and abdominal pain. Endoscopic evaluation was repeated and similar findings were found with inability to pass the scope. COMORBIDITIES: 1. History of gastric cancer status post resection in [facility] 20 years ago followed by re-resection at [facility] in 2013 and then treated with radiation and chemotherapy. (Details are missing). 2. History of gastric outlet obstruction with multiple endoscopic evaluations and at least in 2015 and 2016. Five endoscopic evaluations, none of which showed evidence of recurrence of cancer, but the patient was not able to be dilated due to the small pinhole opening that was connecting his stomach to his small intestine. 4. Every day smoker. 5. Esophageal ulcers noted on multiple endoscopic evaluations. 6. History of bilateral nonobstructing renal calculi. 7. History of right hydrocele. 8. Atherosclerotic vascular disease. 9. Anemia 10. Malnutrition 11. Hypothyroidism 12. Smoker 1ppd many decades 13. Father with lung cancer Subjective: No major events or complaints; no abd pain and under control with medications; no n/v/d; no sob or cp; + flatus; + BM; minimal activity Objective: Vitals: See below Exam: GENERAL: On exam, the patient was laying in bed and appeared to be comfortable and in no acute distress. NG pink/ss. ABDOMEN: Soft, nontender and nondistended. There are no peritoneal signs or guarding. SKIN: Skin appears to be pink and feels warm to touch. NEUROLOGIC: Patient is awake, alert, and follows commands appropriately. Exam/Review of Systems Vital Signs Vitals Vital Signs Date Time Temp Pulse Resp B/P Pulse Ox O2 Delivery O2 Flow Rate FiO2 05/13/16 07:22 97.9 55 22 95/61 99 05/12/16 20:30 Room Air 05/09/16 08:39 2.0 Intake and Output 05/12/16 05/12/16 05/13/16 15:00 23:00 07:00 Intake Total 800 ml 900 ml Output Total 0 ml 1100 ml Balance 0 ml -300 ml 900 ml Results Result Diagram: 05/13/16 0525 05/13/16 0525 SHANDRA KO M.D. May 13, 2016 14:11
--- NOTE | 2016-05-13 16:05 | RADRPT ---
PROCEDURE: CT scan of the abdomen and pelvis with and without IV contrast. CLINICAL INDICATION: History of gastric cancer. TECHNIQUE: Thin section axial, coronal and sagittal images were performed through the abdomen and pelvis without contrast and then following the injection of 100 cc of Isovue 370. Low-dose protocol imaging was utilized. One or more of the following dose reduction techniques were used: - Automated exposure control. - Adjustment of the mA and/or kV according to patient size. Use of iterative reconstruction technique. Radiation Dose: CTDI: 5.5 and DLP: 267.5 COMPARISON: CT scan abdomen pelvis 05/08/[facility]. FINDINGS: Lungs and pleural space: The lungs are clear. No pulmonary infiltrate or pulmonary nodule is presen t. No pleural effusion is present. Heart: Normal. No pericardial effusion is present. The liver, common bile duct and gallbladder: A 5.7 mm lesion to small to characterize is identified in the lateral periphery of the dome of the right lobe of the liver. Ultrasound is recommended to s ee if this represents a cyst or solid lesion. The hepatic and portal veins are patent. There is a linear collection of air ventral to the inferior vena cava which may represent air within the common bile duct. Correlation needed for prior surgery related to the common bile duct. Pancreas: Normal. Gastrointestinal: The gastric mucosa is markedly thickened with an NG tube noted just distal to the GE junction. There is a partial gastrectomy with an anastomotic site noted in the distal gastric fun dus with Esteban-en-Y procedure. Fluid is noted in the second portion of the duodenum. The esophageal mucosa near the GE junction also appears slightly thickened. These findings may relate to gastric c ancer. A gastritis a similar appearance. Kidneys and bladder : A 2 cm cyst is in the upper pole of the left kidney. There is a 2.9 cm benign cyst in the upper portion of the lower third of the left kidney. There is a 1 cm benign cyst in the dorsal lateral lower third of the left kidney. There is a 0.9 cm cyst in the ventral mid pole of th e left kidney. There is a 9 cm cyst in the lower third of the right kidney. No solid renal mass or obstructing ureterolith is identified. The urinary bladder is normal. Adrenal glands: Normal. Spleen: No. Lymph nodes: No enlarge periportal, retroperitoneal, or mesenteric lymph nodes are identified. No e nlarged pelvic sidewall or inguinal lymph nodes are identified. Small inguinal lymph nodes are pres ent. Reproductive system: The prostate gland is enlarged. The seminal vesicles are normal. A right-sided hydrocele is noted. Bony elements: There are degenerative osteophytes in the lower thoracic and lumbar spine. No bone m etastasis or acute bony fracture is noted. Vasculature: There are vascular calcifications in the abdominal aorta, common iliac arteries, sport intern al iliac arteries and common femoral arteries. There is no evidence of an aneurysm. IMPRESSION: 1. Status post partial gastrectomy with Esteban-en-Y procedure. Diffuse thickening of the gastric wall and distal esophagus at the level of the GE junction. Findings are consistent with the stated histo ry of gastric cancer. A gastritis can have a similar appearance. Findings were discussed with Dr. Mar. 2. 5 mm lesions subcapsular portion do not right lobe of liver too small to characterize which is l ikely a cyst. Ultrasound recommended for confirmation. 3. Periportal edema. 4. Linear collection of air in the colon likely represents the extrahepatic common bile duct proxim al to the pancreas. 5. Benign renal cysts. 6. Satisfactory position of an NG tube in the stomach. 7. Enlarged prostate. 8. Right hydrocele. 9. Findings were discussed with Dr. Mar. RPTAT:AAJJ Physician Nancy Date Time Electronically viewed and signed by Physician Nancy on 05/13/2016 16:05 JM/
--- NOTE | 2016-05-13 16:14 | PN ---
Date/Time of Note Date/Time of Note DATE: 05/13/16 TIME: 16:10 Assessment/Plan VTE Prophylaxis VTE Prophylaxis Intervention: SCD's Lines/Catheters IV C[facility]ter Type (from [facility]): Peripheral IV Urinary Cath still in place: No Assessment/Plan Chief Complaint/Hosp Course Assessment/Plan - Gastric outlet obstructive obstruction, status post EGD. Dr. Landeros who is covering for Dr. Gallego is following in gastroenterology consultation. Dr. Mar is following patient in general surgery consultation. Continue patient n.p.o., NG tube to low wall suctioning. We will start TPN and lipids after PICC line insertion. Dr. Gongora is following patient in for cardiology consultation, cleared for surgery. - Gastrics cancer status post surgery 2-1/2 years ago, status post chemotherapy and radiation. Patient was followed as an outpatient by Dr. Lou in radiation oncology and Dr. Lawrence oncology. -Tobacco dependence. Tobacco cessation is strongly advised. Continue sequential compression device for deep venous thrombosis prophylaxis and Protonix for peptic ulcer disease prophylaxis. Further recommendations based on clinical course. Plan of care discussed with Dr. Self. Problems: Subjective 24 Hr Interval Summary Free Text/Dictation Patient denies any pain denies nausea vomiting, continues on NG tube to low wall suctioning, pending PICC line placement by radiology. Exam/Review of Systems Vital Signs Vitals Vital Signs Date Time Temp Pulse Resp B/P Pulse Ox O2 Delivery O2 Flow Rate FiO2 05/13/16 07:22 97.9 55 22 95/61 99 05/12/16 20:30 Room Air 05/09/16 08:39 2.0 Intake and Output 05/12/16 05/12/16 05/13/16 15:00 23:00 07:00 Intake Total 800 ml 900 ml Output Total 0 ml 1100 ml Balance 0 ml -300 ml 900 ml Exam Constitutional: alert, oriented Psych: no complaints Head: atraumatic, normocephalic Eyes: nl conjunctiva ENMT: nl external ears & nose Neck: non-tender, supple Respiratory: clear to auscultation Cardiovascular: nl pulses, regular rate and rhythm Gastrointestinal: other (Mild left upper and right upper quadrant tenderness), soft Musculoskeletal: nl extremities to inspection Extremities: normal pulses Neurological: GOLD MINER II-XII intact Results Result Diagram: 05/13/1652405/13/16524 Results 24 hrs Laboratory Tests Test 05/13/16 00:50 05/13/16 05:25 Troponin I 0.025 < 0.012 Alanine Aminotransferase (ALT/SGPT) 22 Albumin 3.0 L Albumin/Globulin Ratio 1.11 Alkaline Phosphatase 179 H Anion Gap 12 Aspartate Amino Transf (AST/SGOT) 12 L Basophils # 0.0 Basophils % 0.2 Blood Urea Nitrogen 12 Calcium Level 8.4 Carbon Dioxide Level 25 Chloride Level 103 Cholesterol Level 148 Cholesterol/HDL Ratio 2.9 Creatinine 0.77 Direct Bilirubin 0.00 Eosinophils # 0.1 Eosinophils % 0.9 Globulin 2.70 Glucose Level 96 HDL Cholesterol 50 Hematocrit 28.8 L Hemoglobin 9.9 L Indirect Bilirubin 0.5 LDL Cholesterol, Calculated 86 Lymphocytes # 0.8 Lymphocytes % 12.5 L Magnesium Level 1.7 Mean Corpuscular Hemoglobin 30.7 Mean Corpuscular Hemoglobin Concent 34.4 Mean Corpuscular Volume 89.2 Mean Platelet Volume 10.9 H Monocytes # 0.6 Monocytes % 9.7 Neutrophils # 5.0 Neutrophils % 76.4 Nucleated Red Blood Cells # 0.0 Nucleated Red Blood Cells % 0.0 Phosphorus Level 3.4 Platelet Count 146 Potassium Level 3.7 Prealbumin 10.8 L Red Blood Count 3.23 L Red Cell Distribution Width 14.0 Sodium Level 136 Total Bilirubin 0.5 Total Protein 5.7 L Triglycerides Level 62 White Blood Count 6.6 # Medications Medications Current Medications Dextrose/Sodium Chloride (D5-1/2ns) 1,000 ml @ 70 mls/hr [id number] IV Last administered on 05/13/16 05:51; Admin Dose 70 MLS/HR; Start 05/08/16 at 15:00 Ondansetron HCl (Zofran Inj) 4 mg Q6H PRN IV NAUSEA AND/OR VOMITING; Start 05/08 at 15:00 Morphine Sulfate (morphine) 2 mg Q4H PRN IV PAIN LEVEL 6-10 Last administered on 05/12/16 00:44; Admin Dose 2 MG; Start 05/08/16 at 17:30 Pantoprazole (Protonix Iv) 40 mg BID@06,18 IV Last administered on 05/13/16 05 :48; Admin Dose 40 MG; Start 05/08/16 at 20:00 MERISSA PIÑA May 13, 2016 16:14
--- NOTE | 2016-05-13 17:48 | RADRPT ---
PROCEDURE: XR Chest. CLINICAL INDICATION: Check PICC line position. TECHNIQUE: Single frontal view. COMPARISON: 05/09/2016. FINDINGS: There is a left arm PICC line with the tip in the lower superior vena cava. The nasogastric tube ti p is in the stomach. The lungs are clear. The heart size is normal. There is no pleural effusion. There is no pneumothorax. IMPRESSION: 1. Satisfactory position of left arm PICC line. 2. Nasogastric tube tip in the stomach. 3. Clear lungs. RPTAT: QQ .Cody Mancera MD, MD Date Time Electronically viewed and signed by .Cody Mancera MD, MD on 05/13/2016 17:47 .R/
[2016-05-13] MEDS: FAT EMULSION 20% 250 ML IV SCH (18:43)
[2016-05-13] MEDS: TPN 1,000 ML IV SCH (18:43)
[2016-05-13] MEDS: ACCU-CHEK XX SCH (20:00)
[2016-05-13 20:29] VITALS: BP 110/59; PULSE 58; RESP 18
--- NOTE | 2016-05-13 23:11 | CONS ---
Date/Time of Note Date/Time of Note DATE: 05/13/16 TIME: 23:11 Assessment/Plan Assessment/Plan Chief Complaint/Hosp Course HX GASTRIC CANCER INCOMPLETE RECORD SP Stomach surgery sec to stomach cancer - s/p RNY surgery OLD RECORD-P PER DR VALENTINE NOTE- History of gastric cancer status post resection in [facility] 20 years ago followed by re-resection at [facility] in 2013 and then treated with radiation and chemotherapy. (Details are missing) . History of gastric outlet obstruction with multiple endoscopic evaluations and at least in 2015 and 2016. Five endoscopic evaluations, none of which showed evidence of recurrence of cancer , but the patient was not able to be dilated due to the small pinhole opening that was connecting his stomach to his small intestine. -Gastric outflow obstruction - npo - GI F-UP ENDOSCOPY- NOTED AWAITING CLEARANCE FOR SURGERY -Intractable vomiting with nausea 2/2 high grade gastric outlet obstruction - per GI - Zofran esophagitis Small bilateral nonobstructing renal calculi. Atherosclerotic vascular disease. Smoker- Current every day smoker(1-2 TIMES PER WEEK, CIGARETTES) Right hydrocele. - Urology consult appreciated- Dr Lozada notified Small bilateral nonobstructing renal calculi. - per Urology Atherosclerotic vascular disease. Hx Esophagitis SCDs for DVT prophylaxis Protonix for GI prophylaxis Problems: Consultation Date/Type/Reason Admit Date/Time May 08, 2016 at 13:19 Initial Consult Date 05/08/16 Type of Consultation: [facility] Referring Provider: NAKUL BROWN MD 24 HR Interval Summary Free Text/Dictation Patient denies any pain denies any shortness of breath, status post PICC line placement, continued on TPN and lipids. Exam/Review of Systems Vital Signs Vitals Vital Signs Date Time Temp Pulse Resp B/P Pulse Ox O2 Delivery O2 Flow Rate FiO2 05/13/16 20:29 98.3 58 18 110/59 99 Room Air 05/09/16 08:39 2.0 Intake and Output 05/12/16 05/12/16 05/13/16 15:00 23:00 07:00 Intake Total 800 ml 900 ml Output Total 0 ml 1100 ml Balance 0 ml -300 ml 900 ml Exam Exam Constitutional: alert, oriented Psych: no complaints Head: atraumatic, normocephalic Eyes: nl conjunctiva ENMT: nl external ears & nose Neck: non-tender, supple Respiratory: clear to auscultation Cardiovascular: nl pulses, regular rate and rhythm Gastrointestinal: other (Mild left upper and right upper quadrant tenderness), soft Musculoskeletal: nl extremities to inspection Extremities: normal pulses Neurological: GLUE SPECIALTY SUPERVISOR II-XII intact Results Result Diagram: 05/13/16 0525 05/13/16 0525 Results 24 hrs Laboratory Tests Test 05/13/16 00:50 05/13/16 05:25 05/13/16 21:44 Troponin I 0.025 < 0.012 Alanine Aminotransferase (ALT/SGPT) 22 Albumin 3.0 L Albumin/Globulin Ratio 1.11 Alkaline Phosphatase 179 H Anion Gap 12 Aspartate Amino Transf (AST/SGOT) 12 L Basophils # 0.0 Basophils % 0.2 Blood Urea Nitrogen 12 Calcium Level 8.4 Carbon Dioxide Level 25 Chloride Level 103 Cholesterol Level 148 Cholesterol/HDL Ratio 2.9 Creatinine 0.77 Direct Bilirubin 0.00 Eosinophils # 0.1 Eosinophils % 0.9 Globulin 2.70 Glucose Level 96 HDL Cholesterol 50 Hematocrit 28.8 L Hemoglobin 9.9 L Indirect Bilirubin 0.5 LDL Cholesterol, Calculated 86 Lymphocytes # 0.8 Lymphocytes % 12.5 L Magnesium Level 1.7 Mean Corpuscular Hemoglobin 30.7 Mean Corpuscular Hemoglobin Concent 34.4 Mean Corpuscular Volume 89.2 Mean Platelet Volume 10.9 H Monocytes # 0.6 Monocytes % 9.7 Neutrophils # 5.0 Neutrophils % 76.4 Nucleated Red Blood Cells # 0.0 Nucleated Red Blood Cells % 0.0 Phosphorus Level 3.4 Platelet Count 146 Potassium Level 3.7 Prealbumin 10.8 L Red Blood Count 3.23 L Red Cell Distribution Width 14.0 Sodium Level 136 Total Bilirubin 0.5 Total Protein 5.7 L Triglycerides Level 62 White Blood Count 6.6 # Bedside Glucose 121 Medications Medications Current Medications Ondansetron HCl (Zofran Inj) 4 mg Q6H PRN IV NAUSEA AND/OR VOMITING; Start 05/08 at 15:00 Morphine Sulfate (morphine) 2 mg Q4H PRN IV PAIN LEVEL 6-10 Last administered on 05/12/16 00:44; Admin Dose 2 MG; Start 05/08/16 at 17:30 Pantoprazole (Protonix Iv) 40 mg BID@06,18 IV Last administered on 05/13/16 17 :33; Admin Dose 40 MG; Start 05/08/16 at 20:00 IV Flush 10 ml 10 ml PRN PRN IV IV PROTOCOL; Start 05/13/16 at 17:30 Total Parenteral Nutrition 1,000 ml @ 75 mls/hr [id number] IV Last administered on 05/13/16 18:43; Admin Dose 75 MLS/HR; Start 05/13/16 at 18:00 Fat Emulsion Intravenous (Liposyn Ii 20%) 250 ml @ 31 mls/hr DAILY@16 IV Last administered on 05/13/16 18:43; Admin Dose 31 MLS/HR; Start 05/13/16 at 18:00 Diagnostic Test (Pha) (Accucheck) 1 ea Q4H XX Last administered on 05/13/16 20 :00; Admin Dose 1 EA; Start 05/13/16 at 20:00 DIANNA SCOTT MD May 13, 2016 23:11
[2016-05-14] MEDS: LORAZEPAM 2 MG INJ IV PRN ×2 (00:35→22:43)
[2016-05-14] MEDS: ACCU-CHEK XX SCH ×7 (00:35→23:47)
[2016-05-14] MEDS: PANTOPRAZOLE 40 MG INJ IV SCH ×2 (05:47→17:24)
[2016-05-14 06:23] LABS: CREATININE 0.76 mg/dl (0.61-1.24)
[2016-05-14 06:24] LABS: CALCIUM 8.6 mg/dl (8.4-10.2); MAGNESIUM 1.7 mg/dl (1.7-2.5); PHOSPHORUS 3.7 mg/dl (2.5-4.9)
[2016-05-14 07:45] VITALS: BP 80/56; RESP 16
[2016-05-14] MEDS: TPN 1,000 ML IV SCH ×2 (07:55→20:54)
[2016-05-14 08:30] VITALS: BP 94/56; PULSE 58; RESP 16
[2016-05-14 12:00] VITALS: BP 91/51; PULSE 55; RESP 16
--- NOTE | 2016-05-14 14:36 | CONS ---
Date/Time of Note Date/Time of Note DATE: 05/14/16 TIME: 14:32 Assessment/Plan Assessment/Plan Chief Complaint/Hosp Course IMPRESSION: 1. Preoperative evaluation prior to surgery for gastric outlet obstruction.- NO cardiac contraindication to proceeding with surgery at this time at moderate risk. Check post-op ECG and follow for s/s/x of CV complications post- operatively 2. Abnormal electrocardiogram with T-wave flattening in aVL.-negative troponin x 2 3. Diastolic dysfunction by 2-D echo done this admission. 4. Hypertension, labile with borderline hypotension. 5. Gastric outlet obstruction. 6. Nausea, vomiting secondary to gastric outlet obstruction. 7. Weight loss secondary to gastric outlet obstruction. 8. Recent cessation of tobacco usage. Problems: Consultation Date/Type/Reason Admit Date/Time May 08, 2016 at 13:19 Initial Consult Date 05/08/16 Type of Consultation: Cardiology Reason for Consultation Pre-op Referring Provider: SOFIA SHAFFER MD Exam/Review of Systems Vital Signs Vitals Vital Signs Date Time Temp Pulse Resp B/P Pulse Ox O2 Delivery O2 Flow Rate FiO2 05/14/16 12:00 98.5 55 16 91/51 98 Room Air Intake and Output 05/13/16 05/13/16 05/14/16 15:00 23:00 07:00 Intake Total 600 ml 1035 ml Output Total 700 ml 450 ml Balance -100 ml 585 ml Exam Review of Systems: CONSTITUTIONAL: No fevers, chills. PULMONARY: No sob CARDIOVASCULAR: No chest pain/palpitations GASTROINTESTINAL: No nausea/vomiting. GENITOURINARY: No hematuria/dysuria. MUSCULOSKELETAL: No myagias/arthalgias. PSYCHIATRIC: The patient denies depression. NEUROLOGIC: No weakness Constitutional: alert Psych: no complaints Head: normocephalic ENMT: other (NGT in place) Neck: jvd (8 cm water), supple Respiratory: clear to auscultation Cardiovascular: regular rate and rhythm Gastrointestinal: non-tender, soft Musculoskeletal: muscle tone (normal) Extremities: edema (none) Neurological: other (No focal deficvits) Results Result Diagram: 05/13/16 0525 05/14/16 0543 Results 24 hrs Laboratory Tests Test 05/13/16 21:44 05/14/16 00:30 05/14/16 04:16 05/14/16 05:43 Bedside Glucose 121 132 103 Anion Gap 14 Blood Urea Nitrogen 15 Calcium Level 8.6 Carbon Dioxide Level 25 Chloride Level 102 Creatinine 0.76 Glucose Level 82 Magnesium Level 1.7 Phosphorus Level 3.7 Potassium Level 4.0 Sodium Level 137 Test 05/14/16 07:51 05/14/16 12:05 Bedside Glucose 122 120 Medications Medications Current Medications Ondansetron HCl (Zofran Inj) 4 mg Q6H PRN IV NAUSEA AND/OR VOMITING; Start 05/08 at 15:00 Morphine Sulfate (morphine) 2 mg Q4H PRN IV PAIN LEVEL 6-10 Last administered on 05/12/16 00:44; Admin Dose 2 MG; Start 05/08/16 at 17:30 Pantoprazole (Protonix Iv) 40 mg BID@06,18 IV Last administered on 05/14/16 05 :47; Admin Dose 40 MG; Start 05/08/16 at 20:00 IV Flush 10 ml 10 ml PRN PRN IV IV PROTOCOL; Start 05/13/16 at 17:30 Total Parenteral Nutrition 1,000 ml @ 75 mls/hr [id number] IV Last administered on 05/14/16 07:55; Admin Dose 75 MLS/HR; Start 05/13/16 at 18:00 Fat Emulsion Intravenous (Liposyn Ii 20%) 250 ml @ 31 mls/hr DAILY@16 IV Last administered on 05/13/16 18:43; Admin Dose 31 MLS/HR; Start 05/13/16 at 18:00 Diagnostic Test (Pha) (Accucheck) 1 ea Q4H XX Last administered on 05/14/16 12 :15; Admin Dose 1 EA; Start 05/13/16 at 20:00 Lorazepam (Ativan) 1 mg Q6H PRN IV ANXIETY Last administered on 05/14/16 00:35 ; Admin Dose 1 MG; Start 05/14/16 at 00:00 AVEL DOS SANTOS May 14, 2016 14:36
--- NOTE | 2016-05-14 15:31 | PN ---
Date/Time of Note Date/Time of Note DATE: 05/14/16 TIME: 15:29 Assessment/Plan VTE Prophylaxis VTE Prophylaxis Intervention: SCD's Lines/Catheters IV C[facility] Type (from [facility]): PICC Line Central line still needed: Yes Urinary Cath still in place: No Assessment/Plan Chief Complaint/Hosp Course Assessment/Plan - Gastric outlet obstructive obstruction, status post EGD. Dr. Landeros who is covering for Dr. Gallego is following in gastroenterology consultation. Dr. Mar is following patient in general surgery consultation. Continue patient n.p.o., NG tube to low wall suctioning. Continue TPN and lipids Dr. Gongora is following patient in for cardiology consultation, cleared for surgery. - Gastrics cancer status post surgery 2-1/2 years ago, status post chemotherapy and radiation. Patient was followed as an outpatient by Dr. Lou in radiation oncology and Dr. Lawrence oncology. Dr. Iglesias is following in hematology/ oncology consultation. -Tobacco dependence. Tobacco cessation is strongly advised. Continue sequential compression device for deep venous thrombosis prophylaxis and Protonix for peptic ulcer disease prophylaxis. Further recommendations based on clinical course. Plan of care discussed with Dr. Self. Problems: Subjective 24 Hr Interval Summary Free Text/Dictation Patient denies any pain denies any shortness of breath, status post PICC line placement, continued on TPN and lipids. Exam/Review of Systems Vital Signs Vitals Vital Signs Date Time Temp Pulse Resp B/P Pulse Ox O2 Delivery O2 Flow Rate FiO2 05/14/16 12:00 98.5 55 16 91/51 98 Room Air Intake and Output 05/13/16 05/13/16 05/14/16 15:00 23:00 07:00 Intake Total 600 ml 1035 ml Output Total 700 ml 450 ml Balance -100 ml 585 ml Exam Constitutional: alert, oriented Psych: no complaints Head: atraumatic, normocephalic Eyes: nl conjunctiva ENMT: nl external ears & nose Neck: non-tender, supple Respiratory: clear to auscultation Cardiovascular: nl pulses, regular rate and rhythm Gastrointestinal: other (Mild left upper and right upper quadrant tenderness), soft Musculoskeletal: nl extremities to inspection Extremities: normal pulses Neurological: [employer] ASSISTANT II-XII intact Results Result Diagram: 05/13/16 0525 05/14/16 0543 Results 24 hrs Laboratory Tests Test 05/13/16 21:44 05/14/16 00:30 05/14/16 04:16 05/14/16 05:43 Bedside Glucose 121 132 103 Anion Gap 14 Blood Urea Nitrogen 15 Calcium Level 8.6 Carbon Dioxide Level 25 Chloride Level 102 Creatinine 0.76 Glucose Level 82 Magnesium Level 1.7 Phosphorus Level 3.7 Potassium Level 4.0 Sodium Level 137 Test 05/14/16 07:51 05/14/16 12:05 Bedside Glucose 122 120 Medications Medications Current Medications Ondansetron HCl (Zofran Inj) 4 mg Q6H PRN IV NAUSEA AND/OR VOMITING; Start 05/08 at 15:00 Morphine Sulfate (morphine) 2 mg Q4H PRN IV PAIN LEVEL 6-10 Last administered on 05/12/16 00:44; Admin Dose 2 MG; Start 05/08/16 at 17:30 Pantoprazole (Protonix Iv) 40 mg BID@06,18 IV Last administered on 05/14/16 05 :47; Admin Dose 40 MG; Start 05/08/16 at 20:00 IV Flush 10 ml 10 ml PRN PRN IV IV PROTOCOL; Start 05/13/16 at 17:30 Total Parenteral Nutrition 1,000 ml @ 75 mls/hr [id number] IV Last administered on 05/14/16 07:55; Admin Dose 75 MLS/HR; Start 05/13/16 at 18:00 Fat Emulsion Intravenous (Liposyn Ii 20%) 250 ml @ 31 mls/hr DAILY@16 IV Last administered on 05/13/16 18:43; Admin Dose 31 MLS/HR; Start 05/13/16 at 18:00 Diagnostic Test (Pha) (Accucheck) 1 ea Q4H XX Last administered on 05/14/16 12 :15; Admin Dose 1 EA; Start 05/13/16 at 20:00 Lorazepam (Ativan) 1 mg Q6H PRN IV ANXIETY Last administered on 05/14/16 00:35 ; Admin Dose 1 MG; Start 05/14/16 at 00:00 MERISSA PIÑA May 14, 2016 15:30
[2016-05-14] MEDS: FAT EMULSION 20% 250 ML IV SCH ×2 (16:00→17:17)
--- NOTE | 2016-05-14 17:33 | PN ---
Date/Time of Note Date/Time of Note DATE: 05/14/16 TIME: 17:31 Assessment/Plan Lines/Catheters IV Catheter Type (from [facility]): PICC Line Alex in Place (from [facility]): No Assessment/Plan Assessment/Plan [facility] Progress Note Date of Service: 05/14/16 Today's Impression & Plan: Overall stable. Awaiting surgery tomorrow am. Awaiting discussions with Dr. Gallego, but believe the thickened stomach is likely due to GOO and not malignancy. Either case, patient will need a surgical intervention. We also have 5 EGD's the last 12 months, most recent of which was just a few days ago and no evidence of overt malignancy. With above assessment, I've recommended the following for today: 1. Cont current cares 2. Cont NG 3. Keep inhouse 4. Cont pre-op clearance 5. To OR on am Thank you again for your great care of this very pleasant patient and wonderful family. If there are any questions, please feel free to call me at [phone]. TOTAL VISIT TIME: 20 minutes of which more than half was spent in [id number] discussion with the patient, possibly including family, as well as coordination of care between multiple physicians and providers. Disclaimer: Inadvertent spelling or grammatical errors are likely due to EHR/ dictation software use and do not reflect on the overall quality of patient care. Updated Clinical Summary: This is a very pleasant 60-year-old gentleman with comorbidity of previous history of gastric cancer status post resection in [facility] about 20 years ago and then recurrence in 2013 when the patient underwent endoscopic biopsy at [facility] in November of 2013. Then subsequently was transferred to [facility] where he underwent re-resection with RY anastomosis (also included partial resection of wall of transverse colon with repair. Final pathology: extensive poorly differentiated, minimally mucin producing 7.3 cm, G3 adenocarcinoma of the stomach extending focally to distal resected margin of specimen associated with duodenum (positive margin; R1 resection), - LV, - perineural invasion, 6/11 nodes positive, negative proximal margin, TNM stage: eO4dP2c, and Her2 status unknown. Readmitted one month after surgery where EGD 01/24/14 showed gastric outlet obstruction with edema and ulceration at the anastomosis, as well as LA class IV esophageal ulceration. He was subsequently treated with chemotherapy and radiation. The details are currently missing and we are in the process of obtaining those. He also has a BMI 19.0 mainly due to 10 to 20 year history of difficulty with eating. This history has worsened over the last 3 years. The patient has had multiple endoscopic evaluations at [facility] starting 03/2015, repeated 10/2015, repeated 01/2016 and then 04/03/2016. In all of these endoscopic evaluations, the patient was found to have narrowing of the gastric outlet anastomosis onto the small intestine. The attempts to dilate this area were unsuccessful where the scope could not be passed. Several biopsies on all of these endoscopic attempts were negative. Patient was admitted to [facility] on 05/08/2016 with nausea, vomiting and abdominal pain. Endoscopic evaluation was repeated and similar findings were found with inability to pass the scope. COMORBIDITIES: 1. History of gastric cancer status post resection in [facility] 20 years ago followed by re-resection at [facility] in 2013 and then treated with radiation and chemotherapy. (Details are missing). 2. History of gastric outlet obstruction with multiple endoscopic evaluations and at least in 2015 and 2016. Five endoscopic evaluations, none of which showed evidence of recurrence of cancer, but the patient was not able to be dilated due to the small pinhole opening that was connecting his stomach to his small intestine. 4. Every day smoker. 5. Esophageal ulcers noted on multiple endoscopic evaluations. 6. History of bilateral nonobstructing renal calculi. 7. History of right hydrocele. 8. Atherosclerotic vascular disease. 9. Anemia 10. Malnutrition 11. Hypothyroidism 12. Smoker 1ppd many decades 13. Father with lung cancer Subjective: No major events or complaints; no abd pain and under control with medications; no n/v/d; no sob or cp; + flatus; + BM; minimal activity Objective: Vitals: See below Exam: GENERAL: On exam, the patient was laying in bed and appeared to be comfortable and in no acute distress. NG pink/ss. ABDOMEN: Soft, nontender and nondistended. There are no peritoneal signs or guarding. SKIN: Skin appears to be pink and feels warm to touch. NEUROLOGIC: Patient is awake, alert, and follows commands appropriately. Exam/Review of Systems Vital Signs Vitals Vital Signs Date Time Temp Pulse Resp B/P Pulse Ox O2 Delivery O2 Flow Rate FiO2 05/14/16 12:00 98.5 55 16 91/51 98 Room Air Intake and Output 05/13/16 05/13/16 05/14/16 15:00 23:00 07:00 Intake Total 600 ml 1035 ml Output Total 700 ml 450 ml Balance -100 ml 585 ml Results Result Diagram: 05/13/16 0525 05/14/16 0543 SHANDRA KO M.D. May 14, 2016 17:33
--- NOTE | 2016-05-14 19:15 | RADRPT ---
Vent Rate: 56 bpm RR Interval: 0 msec [place] Interval: 174 msec QRS Duration: 88 msec QT Interval: 454 msec QTC Interval: 438 msec P-R-T [place]: 83 - 82 - 73 degrees Sinus bradycardia Otherwise normal ECG Electronically Signed By: Inocencio Krishnan [id number]
[2016-05-14 19:42] VITALS: BP 94/56; RESP 18
[2016-05-15] VITALS (38 sets, daily range): BP systolic 85–122; BP diastolic 54–83; PULSE 56–93; RESP 14–34
--- NOTE | 2016-05-15 00:06 | CONS ---
Date/Time of Note Date/Time of Note DATE: 05/14/16 TIME: 21:05 vk le Assessment/Plan Assessment/Plan Chief Complaint/Hosp Course HX GASTRIC CANCER INCOMPLETE RECORD SP Stomach surgery sec to stomach cancer - s/p RNY surgery OLD RECORD-P PER DR VALENTINE NOTE- History of gastric cancer status post resection in [facility] 20 years ago followed by re-resection at [facility] in 2013 and then treated with radiation and chemotherapy. (Details are missing) . History of gastric outlet obstruction with multiple endoscopic evaluations and at least in 2015 and 2016. Five endoscopic evaluations, none of which showed evidence of recurrence of cancer , but the patient was not able to be dilated due to the small pinhole opening that was connecting his stomach to his small intestine. -Gastric outflow obstruction - npo - GI F-UP ENDOSCOPY- NOTED AWAITING CLEARANCE FOR SURGERY -Intractable vomiting with nausea 2/2 high grade gastric outlet obstruction - per GI - Zofran esophagitis Small bilateral nonobstructing renal calculi. Atherosclerotic vascular disease. Smoker- Current every day smoker(1-2 TIMES PER WEEK, CIGARETTES) Right hydrocele. - Urology consult appreciated- Dr Lozada notified Small bilateral nonobstructing renal calculi. - per Urology Atherosclerotic vascular disease. Hx Esophagitis SCDs for DVT prophylaxis Protonix for GI prophylaxis Problems: Consultation Date/Type/Reason Admit Date/Time May 08, 2016 at 13:19 Initial Consult Date 05/08/16 [facility]erring Provider: SOFIA SHAFFER MD 24 HR Interval Summary Free Text/Dictation Overall stable. Awaiting surgery tomorrow am. Exam/Review of Systems Vital Signs Vitals Vital Signs Date Time Temp Pulse Resp B/P Pulse Ox O2 Delivery O2 Flow Rate FiO2 05/14/16 19:42 99.1 54 18 94/56 98 05/14/16 12:00 Room Air Intake and Output 05/14/16 05/14/16 05/15/16 15:00 23:00 07:00 Intake Total 1000 ml Output Total 700 ml Balance 300 ml Exam Review of Systems: CONSTITUTIONAL: No fevers, chills. PULMONARY: No sob CARDIOVASCULAR: No chest pain/palpitations GASTROINTESTINAL: No nausea/vomiting. GENITOURINARY: No hematuria/dysuria. MUSCULOSKELETAL: No myagias/arthalgias. PSYCHIATRIC: The patient denies depression. NEUROLOGIC: No weakness Constitutional: alert Psych: no complaints Head: normocephalic ENMT: other (NGT in place) Neck: jvd (8 cm water), supple Respiratory: clear to auscultation Cardiovascular: regular rate and rhythm Gastrointestinal: non-tender, soft Musculoskeletal: muscle tone (normal) Extremities: edema (none) Neurological: other (No focal deficvits) Results Result Diagram: 05/13/16 0525 05/14/16 0543 Results 24 hrs Laboratory Tests Test 05/14/16 00:30 05/14/16 04:16 05/14/16 05:43 05/14/16 07:51 Bedside Glucose 132 103 122 Anion Gap 14 Blood Urea Nitrogen 15 Calcium Level 8.6 Carbon Dioxide Level 25 Chloride Level 102 Creatinine 0.76 Glucose Level 82 Magnesium Level 1.7 Phosphorus Level 3.7 Potassium Level 4.0 Sodium Level 137 Test 05/14/16 12:05 05/14/16 16:42 05/14/16 20:48 05/14/16 23:45 Bedside Glucose 120 113 109 111 Medications Medications Current Medications Ondansetron HCl (Zofran Inj) 4 mg Q6H PRN IV NAUSEA AND/OR VOMITING; Start 05/08 at 15:00 Morphine Sulfate (morphine) 2 mg Q4H PRN IV PAIN LEVEL 6-10 Last administered on 05/12/16 00:44; Admin Dose 2 MG; Start 05/08/16 at 17:30 Pantoprazole (Protonix Iv) 40 mg BID@06,18 IV Last administered on 05/14/16 17 :24; Admin Dose 40 MG; Start 05/08/16 at 20:00 IV Flush 10 ml 10 ml PRN PRN IV IV PROTOCOL; Start 05/13/16 at 17:30 Total Parenteral Nutrition 1,000 ml @ 75 mls/hr [id number] IV Last administered on 05/14/16 20:54; Admin Dose 75 MLS/HR; Start 05/13/16 at 18:00 Fat Emulsion Intravenous (Liposyn Ii 20%) 250 ml @ 31 mls/hr DAILY@16 IV Last administered on 05/14/16 17:17; Admin Dose 31 MLS/HR; Start 05/13/16 at 18:00 Lorazepam (Ativan) 1 mg Q6H PRN IV ANXIETY Last administered on 05/14/16 22:43 ; Admin Dose 1 MG; Start 05/14/16 at 00:00 Diagnostic Test (Pha) (Accucheck) 1 ea Q6 XX Last administered on 05/14/16 23: 47; Admin Dose 1 EA; Start 05/15/16 at 00:00 DIANNA SCOTT MD May 15, 2016 00:06
[2016-05-15 05:43] LABS: ADD SCAN DIFF NO
[2016-05-15 05:51] LABS: BASOPHILS % 0.2 % (0.0-2.0); EOSINOPHILS # 0.1 10^3/ul (0.0-0.5); EOSINOPHILS % 2.2 % (0.0-7.0); HEMATOCRIT 29.8 % (42.0-52.0); HEMOGLOBIN 10.1 g/dl (14.0-18.0); LYMPHOCYTES # 0.8 10^3/ul (0.8-2.9); MEAN CORPUSCULAR HEMOGLOBIN 30.4 pg (29.0-33.0); MEAN CORPUSCULAR HGB CONC 33.9 g/dl (32.0-37.0); MEAN CORPUSCULAR VOLUME 89.8 fl (82.0-101.0); MEAN PLATELET VOLUME 10.4 fl (7.4-10.4); MONOCYTE # 0.4 10^3/ul (0.3-0.9); MONOCYTES % 8.7 % (0.0-11.0); NEUTROPHIL # 3.3 10^3/ul (1.6-7.5); NEUTROPHILS % 71.7 % (39.0-77.0); PLATELET COUNT 166 10^3/UL (140-415); RED BLOOD COUNT 3.32 10^6/ul (4.70-6.10); RED CELL DISTRIBUTION WIDTH 13.9 % (11.5-14.5); WHITE BLOOD COUNT 4.6 10^3/ul (4.8-10.8)
[2016-05-15 06:00] LABS: POTASSIUM 4.1 mmol/L (3.5-5.1)
[2016-05-15 06:02] LABS: CREATININE 0.78 mg/dl (0.61-1.24)
[2016-05-15 06:03] LABS: CALCIUM 8.4 mg/dl (8.4-10.2); INR 1.06; MAGNESIUM 1.8 mg/dl (1.7-2.5); PARTIAL THROMBOPLASTIN TIME 31.1 Sec (25.0-35.0); PROTIME 13.8 Sec (12.2-14.2); PT RATIO 1.1; THROMBIN TIME 15.1 SEC (13.8-19.1)
[2016-05-15] MEDS: PANTOPRAZOLE 40 MG INJ IV SCH ×2 (06:11→18:00)
[2016-05-15] MEDS: ACCU-CHEK XX SCH ×3 (06:18→18:00)
[2016-05-15] MEDS ORDERED: BUPIVACAINE 0.25%/EPI (SDV) 30 ML INJ ONE (09:08)
[2016-05-15] MEDS: TPN 1,000 ML IV SCH ×2 (09:24→16:22)
[2016-05-15] MEDS ORDERED: FENTAnyl 50 MCG/ML VIAL ONE (09:31)
[2016-05-15] MEDS ORDERED: ONDANSETRON 4 MG INJ ONE (09:31)
[2016-05-15] MEDS ORDERED: ROCURONIUM 50 MG INJ ONE (09:31)
[2016-05-15] MEDS ORDERED: PROPOFOL 20 ML ONE (09:31)
[2016-05-15] MEDS ORDERED: SUCCINYLCHOLINE CHLORIDE 100 MG/5 ML SYG IV ONE (09:31)
[2016-05-15] MEDS ORDERED: MIDAZOLAM 1 MG/ML 2 ML INJ ONE (09:35)
--- NOTE | 2016-05-15 09:42 | HPN ---
Date/Time of Note Date/Time of Note DATE: 05/15/16 TIME: 09:41 Interval H&P Admission Note Pt. seen H&P reviewed: No system changes Pt. seen H&P reviewed. No system changes (I attest that I have seen and examined the patient and reviewed the operation in detail, as well as its risks , benefits and alternatives of the operation). I attest that I have seen and examined the patient and reviewed in detail the operation, and its associated risks, benefits and alternative. I have answered all the patient's questions to the best of my ability and the patient wishes to proceed. Please refer to rest of electronic medical record for additional updates. SHANDRA KO M.D. May 15, 2016 09:42
[2016-05-15] MEDS ORDERED: CEFAZOLIN 1 GM INJ ONE (09:45)
[2016-05-15] MEDS ORDERED: LIDOCAINE 1% (MPF) 30 ML INJ ONE (10:36)
--- NOTE | 2016-05-15 10:52 | PN ---
Date/Time of Note Date/Time of Note DATE: 05/15/16 TIME: 10:35 Assessment/Plan Lines/Catheters [facility] PICC Line Central line still needed: Yes Urinary Cath still in place: No Assessment/Plan Assessment/Plan - Gastric outlet obstructive obstruction, status post EGD. - per Dr. Landeros in gastroenterology consultation. - Dr. Mar is following patient in general surgery consultation. - Continue patient n.p.o. - NG tube to low wall suctioning. - Continue TPN and lipids - Dr. Gongora is following patient in for cardiology consultation, cleared for surgery. - Gastrics cancer status post surgery 2-1/2 years ago, status post chemotherapy and radiation. - Patient was followed as an outpatient by Dr. Lou in radiation oncology and Dr. Lawrence oncology. - Dr. Iglesias is following in hematology/ oncology consultation. -Tobacco dependence. Tobacco cessation is strongly advised. - Sequential compression device for deep venous thrombosis prophylaxis -Protonix for peptic ulcer disease prophylaxis. Further recommendations based on clinical course. Plan of care discussed with Dr. Self. Subjective 24 Hr Interval Summary Free Text/Dictation pETIENT OFF FLOOR FOR SURGERY. No acute issues reported, dw staff. Constitutional: improved Eyes: no complaints ENT: no complaints Respiratory: no complaints Cardiovascular: no complaints Gastrointestinal: no complaints Genitourinary: no complaints Musculoskeletal: no complaints Skin: no complaints Neurologic: no complaints Exam/Review of Systems Vital Signs Vitals Vital Signs Date Time Temp Pulse Resp B/P Pulse Ox O2 Delivery O2 Flow Rate FiO2 05/15/16 07:25 98.4 51 22 110/65 100 05/14/16 12:00 Room Air Intake and Output 05/14/16 05/14/16 05/15/16 15:00 23:00 07:00 Intake Total 1000 ml 850 ml Output Total 700 ml 500 ml Balance 300 ml 350 ml Exam Constitutional: alert, oriented, well developed Psych: no complaints Head: atraumatic Eyes: EOMI, PERRL, nl sclera ENMT: nl external ears & nose Neck: non-tender Respiratory: clear to auscultation Cardiovascular: nl pulses Gastrointestinal: non-tender, soft Musculoskeletal: nl extremities to inspection Extremities: normal pulses Neurological: nl mental status, nl speech Skin: nl turgor Lymph: nontender Results Result Diagram: 05/15/16 0525 05/15/16 0525 Results 24 hrs Laboratory Tests Test 05/14/16 12:05 05/14/16 16:42 05/14/16 20:48 05/14/16 23:45 Bedside Glucose 120 113 109 111 Test 05/15/16 05:25 05/15/16 06:13 Activated Partial Thromboplast Time 31.1 Anion Gap 13 Basophils # 0.0 Basophils % 0.2 Blood Urea Nitrogen 20 Calcium Level 8.4 Carbon Dioxide Level 26 Chloride Level 101 Creatinine 0.78 Eosinophils # 0.1 Eosinophils % 2.2 Glucose Level 90 Hematocrit 29.8 L Hemoglobin 10.1 L INR International Normalized Ratio 1.06 Lymphocytes # 0.8 Lymphocytes % 17.0 Magnesium Level 1.8 Mean Corpuscular Hemoglobin 30.4 Mean Corpuscular Hemoglobin Concent 33.9 Mean Corpuscular Volume 89.8 Mean Platelet Volume 10.4 Monocytes # 0.4 Monocytes % 8.7 Neutrophils # 3.3 Neutrophils % 71.7 Nucleated Red Blood Cells # 0.0 Nucleated Red Blood Cells % 0.0 Phosphorus Level 4.0 Platelet Count 166 Potassium Level 4.1 Prothrombin Time 13.8 Prothrombin Time Ratio 1.1 Red Blood Count 3.32 L Red Cell Distribution Width 13.9 Sodium Level 136 Thrombin Time 15.1 White Blood Count 4.6 #L Bedside Glucose 101 Medications Medications Current Medications Ondansetron HCl (Zofran Inj) 4 mg Q6H PRN IV NAUSEA AND/OR VOMITING; Start 05/08 at 15:00 Morphine Sulfate (morphine) 2 mg Q4H PRN IV PAIN LEVEL 6-10 Last administered on 05/12/16 00:44; Admin Dose 2 MG; Start 05/08/16 at 17:30 Pantoprazole (Protonix Iv) 40 mg BID@06,18 IV Last administered on 05/15/16 06 :11; Admin Dose 40 MG; Start 05/08/16 at 20:00 IV Flush 10 ml 10 ml PRN PRN IV IV PROTOCOL; Start 05/13/16 at 17:30 Total Parenteral Nutrition 1,000 ml @ 75 mls/hr [id number] IV Last administered on 05/14/16 20:54; Admin Dose 75 MLS/HR; Start 05/13/16 at 18:00 Fat Emulsion Intravenous (Liposyn Ii 20%) 250 ml @ 31 mls/hr DAILY@16 IV Last administered on 05/14/16 17:17; Admin Dose 31 MLS/HR; Start 05/13/16 at 18:00 Lorazepam (Ativan) 1 mg Q6H PRN IV ANXIETY Last administered on 05/14/16 22:43 ; Admin Dose 1 MG; Start 05/14/16 at 00:00 Diagnostic Test (Pha) (Accucheck) 1 ea Q6 XX Last administered on 05/15/16 06: 18; Admin Dose 1 EA; Start 05/15/16 at 00:00 LAYLA HAMILTON May 15, 2016 10:51
[2016-05-15] MEDS ORDERED: metroNIDAZOLE 500 MG/NS (PMX) 100 ML IVPB ONE (11:18)
[2016-05-15] MEDS ORDERED: ONDANSETRON 4 MG INJ IV PRN (11:30)
[2016-05-15] MEDS ORDERED: MEPERIDINE 25 MG INJ IV PRN (11:30)
[2016-05-15] MEDS ORDERED: HYDROmorphONE (0.2 MG/ML) 10ML SYG IV PRN ×2 (11:30)
[2016-05-15] MEDS ORDERED: FENTAnyl 50 MCG/ML VIAL IV PRN ×2 (11:30)
--- NOTE | 2016-05-15 11:35 | CONS ---
Date/Time of Note Date/Time of Note DATE: 05/15/16 TIME: 11:33 Assessment/Plan Assessment/Plan Chief Complaint/Hosp Course IMPRESSION: 1. Preoperative evaluation prior to surgery for gastric outlet obstruction.- NO cardiac contraindication to proceeding with surgery at this time at moderate risk. Check post-op ECG and follow for s/s/x of CV complications post- operatively 2. Abnormal electrocardiogram with T-wave flattening in aVL.-negative troponin x 2 3. Diastolic dysfunction by 2-D echo done this admission. 4. Hypertension, labile with borderline hypotension. 5. Gastric outlet obstruction. 6. Nausea, vomiting secondary to gastric outlet obstruction. 7. Weight loss secondary to gastric outlet obstruction. 8. Recent cessation of tobacco usage. Recc: -Continue pain control -Continue TPN -TO OR today -Check post-op ECG Problems: Consultation Date/Type/Reason Admit Date/Time May 08, 2016 at 13:19 Initial Consult Date 05/08/16 Type of Consultation: Cardiology Reason for Consultation Preop Referring Provider: SOFIA SHAFFER MD Exam/Review of Systems Vital Signs Vitals Vital Signs Date Time Temp Pulse Resp B/P Pulse Ox O2 Delivery O2 Flow Rate FiO2 05/15/16 07:25 98.4 51 22 110/65 100 05/14/16 12:00 Room Air Intake and Output 05/14/16 05/14/16 05/15/16 15:00 23:00 07:00 Intake Total 1000 ml 850 ml Output Total 700 ml 500 ml Balance 300 ml 350 ml Exam Review of Systems: CONSTITUTIONAL: No fevers, chills. PULMONARY: No sob CARDIOVASCULAR: No chest pain/palpitations GASTROINTESTINAL: No nausea/vomiting. GENITOURINARY: No hematuria/dysuria. MUSCULOSKELETAL: No myagias/arthalgias. PSYCHIATRIC: The patient denies depression. NEUROLOGIC: No weakness Constitutional: alert, oriented Psych: no complaints Head: normocephalic ENMT: mucosa pink and moist Neck: jvd (9 cm water), supple Respiratory: diminished breath sounds Cardiovascular: regular rate and rhythm Gastrointestinal: non-tender, soft Musculoskeletal: muscle tone (normal) Extremities: edema (none) Neurological: other (No focal deficits) Results Result Diagram: 05/15/16 0525 05/15/16 0525 Results 24 hrs Laboratory Tests Test 05/14/16 12:05 05/14/16 16:42 05/14/16 20:48 05/14/16 23:45 Bedside Glucose 120 113 109 111 Test 05/15/16 05:25 05/15/16 06:13 Activated Partial Thromboplast Time 31.1 Anion Gap 13 Basophils # 0.0 Basophils % 0.2 Blood Urea Nitrogen 20 Calcium Level 8.4 Carbon Dioxide Level 26 Chloride Level 101 Creatinine 0.78 Eosinophils # 0.1 Eosinophils % 2.2 Glucose Level 90 Hematocrit 29.8 L Hemoglobin 10.1 L INR International Normalized Ratio 1.06 Lymphocytes # 0.8 Lymphocytes % 17.0 Magnesium Level 1.8 Mean Corpuscular Hemoglobin 30.4 Mean Corpuscular Hemoglobin Concent 33.9 Mean Corpuscular Volume 89.8 Mean Platelet Volume 10.4 Monocytes # 0.4 Monocytes % 8.7 Neutrophils # 3.3 Neutrophils % 71.7 Nucleated Red Blood Cells # 0.0 Nucleated Red Blood Cells % 0.0 Phosphorus Level 4.0 Platelet Count 166 Potassium Level 4.1 Prothrombin Time 13.8 Prothrombin Time Ratio 1.1 Red Blood Count 3.32 L Red Cell Distribution Width 13.9 Sodium Level 136 Thrombin Time 15.1 White Blood Count 4.6 #L Bedside Glucose 101 Medications Medications Current Medications Ondansetron HCl (Zofran Inj) 4 mg Q6H PRN IV NAUSEA AND/OR VOMITING; Start 05/08 at 15:00 Morphine Sulfate (morphine) 2 mg Q4H PRN IV PAIN LEVEL 6-10 Last administered on 05/12/16 00:44; Admin Dose 2 MG; Start 05/08/16 at 17:30 Pantoprazole (Protonix Iv) 40 mg BID@06,18 IV Last administered on 05/15/16 06 :11; Admin Dose 40 MG; Start 05/08/16 at 20:00 IV Flush 10 ml 10 ml PRN PRN IV IV PROTOCOL; Start 05/13/16 at 17:30 Total Parenteral Nutrition 1,000 ml @ 75 mls/hr [id number] IV Last administered on 05/14/16 20:54; Admin Dose 75 MLS/HR; Start 05/13/16 at 18:00 Fat Emulsion Intravenous (Liposyn Ii 20%) 250 ml @ 31 mls/hr DAILY@16 IV Last administered on 3/15/17at 17:17; Admin Dose 31 MLS/HR; Start 05/13/16 at 18:00 Lorazepam (Ativan) 1 mg Q6H PRN IV ANXIETY Last administered on 05/14/16 22:43 ; Admin Dose 1 MG; Start 05/14/16 at 00:00 Diagnostic Test (Pha) (Accucheck) 1 ea Q6 XX Last administered on 05/15/16 06: 18; Admin Dose 1 EA; Start 05/15/16 at 00:00 AVEL DOS SANTOS May 15, 2016 11:35
[2016-05-15] MEDS ORDERED: NEOSTIGMINE 3 MG/3 ML SYRINGE ONE (13:32)
[2016-05-15] MEDS ORDERED: ATROPINE 1 MG/10 ML SYRINGE ONE (13:32)
--- NOTE | 2016-05-15 14:46 | OPR ---
Date/Time of Note Date/Time of Note DATE: 05/15/16 TIME: 14:43 Operative Report Free Text/Dictation [facility] Immediate Post Operative Note: Pre-op Diagnosis: 1. History of gastric cancer status post resection in [facility] 20 years ago followed by re-resection at [facility] in 2013 and then treated with radiation and chemotherapy. (Details are missing). 2. History of gastric outlet obstruction with multiple endoscopic evaluations and at least in 2015 and 2016. Five endoscopic evaluations, none of which showed evidence of recurrence of cancer, but the patient was not able to be dilated due to the small pinhole opening that was connecting his stomach to his small intestine. 4. Every day smoker. 5. Esophageal ulcers noted on multiple endoscopic evaluations. 6. History of bilateral nonobstructing renal calculi. 7. History of right hydrocele. 8. Atherosclerotic vascular disease. 9. Anemia 10. Malnutrition 11. Hypothyroidism 12. Smoker 1ppd many decades 13. Father with lung cancer Post-Op Diagnosis: 1. History of gastric cancer status post resection in [facility] 20 years ago followed by re-resection at [facility] in 2013 and then treated with radiation and chemotherapy. (Details are missing). 2. History of gastric outlet obstruction with multiple endoscopic evaluations and at least in 2015 and 2017. Five endoscopic evaluations, none of which showed evidence of recurrence of cancer, but the patient was not able to be dilated due to the small pinhole opening that was connecting his stomach to his small intestine. 4. Every day smoker. 5. Esophageal ulcers noted on multiple endoscopic evaluations. 6. History of bilateral nonobstructing renal calculi. 7. History of right hydrocele. 8. Atherosclerotic vascular disease. 9. Anemia 10. Malnutrition 11. Hypothyroidism 12. Smoker 1ppd many decades 13. Father with lung cancer Procedure: 1. Lap, converted to open resection of prior gastrojejunostomy with creation of new gastrojejunostomy using the old RY limb 2. Repair of transverse colon enterotomy 3. Cholecystectomy 4. Lysis of adhesions (> 60 minutes) 5. Abdominal lavage Surgeon: Nate Ko MD Engineer Second Assistant: BLOSSOM Hagen Anesthesia: ATTILA Anesthesiologist: Anthony Mccann MD Findings: No malignancy EBL: 50 ml Blood Products: none Specimen: Previous gastrojejunostomy and gallbladder Complication: Enterotomy transverse colon and perforation of gallbladder Disposition: PACU Disclaimer: Inadvertent spelling and grammatical errors are likely due to EHR/ dictation use and do not reflect on the quality of the delivered patient care. Procedure Date: May 09, 2016 Surgeon: ELVIA SOTO MD Anesthesia: MAC Anesthesiologist: JOSSELIN GAN MD Estimated Blood Loss: minimal Complications: None Pt Condition Post Procedure: stable Disposition: PACU SHANDRA KO M.D. May 15, 2016 14:46
[2016-05-15] MEDS: HYDROmorphONE (0.2 MG/ML) 10ML SYG IV PRN ×2 (14:51→15:30)
[2016-05-15] MEDS ORDERED: NA PHOSPHATE/BIPHOS 133 ML ENEMA PR PRN (15:00)
[2016-05-15] MEDS ORDERED: DOCUSATE SODIUM 100 MG CAP PO PRN (15:00)
[2016-05-15] MEDS ORDERED: BISACODYL 10 MG SUPP PR PRN (15:00)
[2016-05-15] MEDS ORDERED: HYDROCODONE/APAP (5/325) TAB PO PRN ×2 (15:00)
[2016-05-15] MEDS ORDERED: HYDROmorphONE 1 MG/ML SYG IV PRN ×2 (15:00)
[2016-05-15] MEDS ORDERED: NALOXONE (0.4 MG/ML) INJ IV PRN (15:00)
--- NOTE | 2016-05-15 15:17 | OPR ---
[facility] INPATIENT OPERATIVE NOTE PLACE OF SERVICE: [facility] DATE OF SURGERY: 05/15/16 PREOPERATIVE DIAGNOSIS: 1. History of gastric cancer status post resection in [facility] 20 years ago followed by re-resection at [facility] in 2013 and then treated with radiation and chemotherapy. (Details are missing). 2. History of gastric outlet obstruction with multiple endoscopic evaluations and at least in 2015 and 2016. Five endoscopic evaluations, none of which showed evidence of recurrence of cancer, but the patient was not able to be dilated due to the small pinhole opening that was connecting his stomach to his small intestine. 4. Every day smoker. 5. Esophageal ulcers noted on multiple endoscopic evaluations. 6. History of bilateral nonobstructing renal calculi. 7. History of right hydrocele. 8. Atherosclerotic vascular disease. 9. Anemia 10. Malnutrition 11. Hypothyroidism 12. Smoker 1ppd many decades 13. Father with lung cancer POSTOPERATIVE DIAGNOSIS: 1. History of gastric cancer status post resection in [facility] 20 years ago followed by re-resection at [facility] in 2013 and then treated with radiation and chemotherapy. (Details are missing). 2. History of gastric outlet obstruction with multiple endoscopic evaluations and at least in 2015 and 2017. Five endoscopic evaluations, none of which showed evidence of recurrence of cancer, but the patient was not able to be dilated due to the small pinhole opening that was connecting his stomach to his small intestine. 4. Every day smoker. 5. Esophageal ulcers noted on multiple endoscopic evaluations. 6. History of bilateral nonobstructing renal calculi. 7. History of right hydrocele. 8. Atherosclerotic vascular disease. 9. Anemia 10. Malnutrition 11. Hypothyroidism 12. Smoker 1ppd many decades 13. Father with lung cancer OPERATION: 1. Laparoscopic, converted to open, resection of old gastrojejunostomy with reconstruction with primary anastomosis 2. Primary repair of enterotomy, transverse colon 3. Cholecystectomy 4. Lysis of adhesions (at least 90 minutes) 5. Abdominal lavage SURGEON: Shandra Mar M.D. [employer] MECHANIC: Bridger Connors MD ANESTHESIA: General endotracheal tube anesthesia ANESTHESIOLOGIST: Anthony Mccann M.D. BRIEF SUMMARY: A laparoscopic, converted to open, resection of old gastrojejunostomy with reconstruction with primary anastomosis was performed with complication of perforation of gallbladder by trocar as well as enterotomy (transverse colon) during entry through the midline fascia in to the abdominal cavity, with subsequent primary repair of enterotomy of the transverse colon, cholecystectomy, and lysis of adhesions (at least 90 minutes) and abdominal lavage was performed on 05/15/16 with findings of anastomotic narrowing due to scar tissue and no obvious evidence of malignancy. Updated Clinical Summary: This is a very pleasant 60-year-old gentleman with comorbidity of previous history of gastric cancer status post resection in [facility] about 20 years ago and then recurrence in 2013 when the patient underwent endoscopic biopsy at [facility] in November of 2013. Then subsequently was transferred to [facility] where he underwent re-resection with RY anastomosis (also included partial resection of wall of transverse colon with repair. Final pathology: extensive poorly differentiated, minimally mucin producing 7.3 cm, G3 adenocarcinoma of the stomach extending focally to distal resected margin of specimen associated with duodenum (positive margin; R1 resection), - LV, - perineural invasion, 6/11 nodes positive, negative proximal margin, TNM stage: [id number], and Her2 status unknown. Readmitted one month after surgery where EGD 01/24/14 showed gastric outlet obstruction with edema and ulceration at the anastomosis, as well as LA class IV esophageal ulceration. He was subsequently treated with chemotherapy and radiation. The details are currently missing and we are in the process of obtaining those. He also has a BMI 19.0 mainly due to 10 to 20 year history of difficulty with eating. This history has worsened over the last 3 years. The patient has had multiple endoscopic evaluations at [facility] starting 03/2015, repeated 10/2015, repeated 01/2016 and then 04/03/2016. In all of these endoscopic evaluations, the patient was found to have narrowing of the gastric outlet anastomosis onto the small intestine. The attempts to dilate this area were unsuccessful where the scope could not be passed. Several biopsies on all of these endoscopic attempts were negative. Patient was admitted to [facility] on 05/08/2016 with nausea, vomiting and abdominal pain. Endoscopic evaluation was repeated and similar findings were found with inability to pass the scope. COMORBIDITIES: 1. History of gastric cancer status post resection in [facility] 20 years ago followed by re-resection at [facility] in 2013 and then treated with radiation and chemotherapy. (Details are missing). 2. History of gastric outlet obstruction with multiple endoscopic evaluations and at least in 2015 and 2016. Five endoscopic evaluations, none of which showed evidence of recurrence of cancer, but the patient was not able to be dilated due to the small pinhole opening that was connecting his stomach to his small intestine. 4. Every day smoker. 5. Esophageal ulcers noted on multiple endoscopic evaluations. 6. History of bilateral nonobstructing renal calculi. 7. History of right hydrocele. 8. Atherosclerotic vascular disease. 9. Anemia 10. Malnutrition 11. Hypothyroidism 12. Smoker 1ppd many decades 13. Father with lung cancer BRIEF HISTORY: The patient is a very pleasant 60-year-old gentleman with comorbidity of previous history of gastric cancer status post resection in [facility] about 20 years ago and then recurrence in 2013 when the patient underwent endoscopic biopsy at [facility] in November of 2013. Then subsequently was transferred to [facility] where he underwent re- resection with RY anastomosis (also included partial resection of wall of transverse colon with repair. Final pathology: extensive poorly differentiated, minimally mucin producing 7.3 cm, G3 adenocarcinoma of the stomach extending focally to distal resected margin of specimen associated with duodenum ( positive margin; R1 resection), - LV, - perineural invasion, 6/11 nodes positive , negative proximal margin, TNM stage: [id number], and Her2 status unknown. Readmitted one month after surgery where EGD 01/24/14 showed gastric outlet obstruction with edema and ulceration at the anastomosis, as well as LA class IV esophageal ulceration. He was subsequently treated with chemotherapy and radiation. The details are currently missing and we are in the process of obtaining those. He also has a BMI 19.0 mainly due to 10 to 20 year history of difficulty with eating. This history has worsened over the last 3 years. The patient has had multiple endoscopic evaluations at [facility] starting 03/2015, repeated 10/2015, repeated 01/2016 and then 04/03/2016. In all of these endoscopic evaluations, the patient was found to have narrowing of the gastric outlet anastomosis onto the small intestine. The attempts to dilate this area were unsuccessful where the scope could not be passed. Several biopsies on all of these endoscopic attempts were negative. Patient was admitted to [facility] on 05/08/2016 with nausea, vomiting and abdominal pain. Endoscopic evaluation was repeated and similar findings were found with inability to pass the scope. I met with the patient and family and counseled them regarding the possible options of treatment, and I strongly suggested an abdominal exploration to be started with laparoscopy and likely open exploration and possible bowel resection, possible ostomy, possible other related procedure depending on the findings. We reviewed the operation in detail as well as the risks, benefits, alternatives, and expected outcomes of this operation. After careful consideration of all the risks, benefits, and alternatives, the patient and family appeared to understand those risks and wished to proceed with surgery. For a detailed report of my consultation with patient and family, please refer to my separate consultation note. STATEMENT OF THE INFORMED CONSENT: The patient and family appeared to understand the risks of the operation to include, but not be limited to risk of postoperative pain and scar tissue, possible infection or bleeding requiring other interventions such as opening the wound, placement of drainage catheters, or other operative interventions; possible injury to surrounding to structures including bowel, bladder, bile duct, or blood vessels, or solid organs such as liver, kidney, or pancreas requiring other interventions or procedures; possible leakage of bowel from anastomotic sites or suture lines causing significant increase in morbidity and mortality and requiring multiple interventions including but not limited to, placement of drainage catheters, imaging studies, as well as operative interventions; possible other source of sepsis such as urinary tract infections or pneumonias, or other sources of potentially life threatening problems such as deep venous thrombus formation causing pulmonary embolism, myocardial arrhythmias and infarctions, and even . I specifically reviewed the extra risks that the patient had to take due to his malnourished state and reviewed the reasonings behind proceeding with the surgery now as opposed to waiting for a few weeks to continue TPN ( patient with borderline albumin). After careful consideration of all their options, the patient and family appeared to understand and wished to proceed with surgery. OPERATIVE DETAILS: After obtaining informed consent, the patient was brought into the operating room and was placed in the normal supine position, where successful general endotracheal tube anesthesia was performed. Intravenous access was ensured and the patient's abdominal skin was prepped and draped from the nipple line down to the level of the groins in the usual sterile fashion. We then called a surgical time-out where the patient's identification, date of , nature of the operation, presence of needed equipment, stability from an anesthesia standpoint, and any other concerns were reviewed and agreed upon by all members of the operating room staff. I then made a skin incision in the right upper quadrant subcostal midclavicular area and attempted to place a 5-mm [employer] trocar into the peritoneal space using direct entry technique and visualizing all the layers of the abdominal wall as we entered. Upon entrance of what appeared to be the peritoneal space, there was presence of blood, which was reminiscent of a possible small tear of the capsule of the liver, but then shortly after this there was also bile involved, and for this reason I suspected gallbladder injury from entry point of the technique. Keeping that trocar in place, I then made a small skin incision in the left lower quadrant and was successfully able to place another 5-mm trocar into the peritoneal space, again visualizing all the layers of the abdominal wall as we entered using direct entry technique. There was no indication of any injury to the underlying structures and then we insufflated the abdominal cavity to a maximum pressure of 15 mmHg. Inspection of what was visible of the abdominal cavity showed a significant amount of adhesions in the upper midline involving bowel. There was no bile staining anywhere that could be seen, but the right upper quadrant was fairly isolated from the abdominal cavity. We also could not see the left upper quadrant very well, but then there was no major evidence of metastatic malignant process. Given the amount of adhesions and knowing that we had at least injured the gallbladder, I decided to convert the operation to an open operation, especially since the previous multiple operative sites, as well as radiation therapy, would have made a laparoscopic procedure untenable. With this information, we placed an upper midline incision from the xiphoid process down to slightly below the level of the umbilicus, utilizing the previous incision that the patient had. Note, the patient also had a slightly left paramedial incision in the form of a V, starting from his umbilicus up towards his left upper quadrant. I suspect that that was the original operation that he had in [facility] and that the midline incision was more recent, about 3 years ago, in 2013. We used a scalpel to go through the skin and then cautery to go through the subcutaneous fat and fascia. We were very careful in terms of adhesiolysis, but as we started going more cephalad, I noticed that there was an enterotomy in a loop of bowel which initially appeared to be the stomach that there was an enterotomy a loop of bowel that after further dissection proved to be the transverse colon that was densely adherent onto the underside of the midline. Interestingly, there was also evidence of Ethibond sutures on this very same spot, indicative of prior enterotomy repair, which explains why there such as a dense amount of adhesion onto this site. We repaired this enterotomy using running 4-0 PDS suture, reinforced by interrupted 3-0 silk sutures in a Lembert fashion, and this came together very nicely without any compromise of the lumen itself. Once we had completed our lysis of adhesions, which took approximately 30 minutes to get exposure to the abdominal cavity, we could see that there was bile staining of the tissue in the right upper quadrant and the gallbladder itself appeared to have a hole in it. We quickly controlled the bile leakage using 3-0 silk interrupted sutures. Once we had this area controlled, we paid our attention to the left upper quadrant. The patient appeared to have a Esteban-en-Y anatomy. The Esteban limb appeared to be approximately 20 cm in length and 10 cm distal from the Esteban-en-Y anastomosis the bowel appeared to go into the transverse colon mesentery in a retrocolic fashion. There was a significant amount of adhesions around the area between the transverse colon and the stomach and after an extra 30 minutes of adhesiolysis, we were able to completely dissect the limb of small intestine that was going through the transverse colon onto its anastomosis to the stomach. The anastomosis itself appeared to be narrowed, but then there was no evidence of any malignant process around. The rest of the body of the stomach appeared to be pliable and slightly edematous, but not prohibitive of further surgical work. After careful consideration of all the options, I decided to resect the old gastrojejunostomy and we performed this by firing a handheld ADELINE stapler (75 mm) using the bowel (blue) load of the stapler to transect across the distal limb of the Esteban, and then after obtaining circumferential control around the area of the gastrojejunostomy, to fire and transect this area from the stomach using 1 green load of the same stapler. In dissecting this area, there was a slight enterotomy in the small bowel that was attached onto the stomach, but this was all part of the specimen, and we sent the specimen to pathology, with one suture marking the Esteban limb of the gastrojejunostomy. We supported the staple line in the stomach using interrupted Lembert sutures. We then inspected the remaining Esteban limb and it appeared to have excellent blood flow, with pulsatile arterial flow of blood. After obtaining adequate hemostasis at the staple edge, we performed a standard [id number] functional end-to-end stapled gastrojejunostomy anastomosis through separate enterotomies that we had made onto the limb of small intestine and the stomach using cautery , and then using 1 blue load of the handheld ADELINE stapler. We made sure that the staple lines are hemostatic and the staple rows appear to be operations/dispatch before closing the enterotomy site using a running 4-0 PDS suture reinforced with interrupted 3-0 silk sutures in a Lembert style. This came together very nicely. We then closed the mesenteric defects using interrupted 3-0 silk sutures. This concluded the performance of the new gastrojejunostomy. At this point, we turned our attention to the right upper quadrant again and performed a top-down cholecystectomy in order to remove the gallbladder which was injured during the entry process. The gallbladder came off the gallbladder bed without any significant difficulty and even though there was a fair amount of adhesions around there, they were soft, and we were able to very clearly discern the cystic artery and the cystic duct, and after making sure that these were the only 2 structures going into the gallbladder, transected them between 2 -0 silk ligatures proximally (x2 on the cystic duct) using cold scissors. This was sent to pathology as a separate specimen as well. We ran the bowel from the ligament of Treitz all the way down to the ileocecal valve. There was a portion of the redundant sigmoid colon that was attached onto the cecum and this created an internal ring which could potentially cause an internal hernia, and for this reason we performed further lysis of adhesions in order to separate this area into its proper anatomical form. We then irrigated the wound with copious amounts of normal saline (at least 4 liters) and suctioned off the excess irrigant to clear drainage. We removed all our equipment from the abdominal cavity and closed the midline fascia using interrupted #1 PDS suture, for the most part in inverted, all throughout the incision. We also closed the two 5-mm port site anterior fascia using 3-0 Vicryl suture, given how thin the patient was. We then packed the wound with normal saline soaked gauze and applied light dressings. The patient tolerated the procedure without any major reported complications, although during the lavage of the abdominal cavity he had a few PVCs. ESTIMATED BLOOD LOSS: 50 mL. BLOOD OR BLOOD PRODUCT TRANSFUSIONS: None to my knowledge. SPECIMEN: 1. Old gastrojejunostomy. 2. Gallbladder. COMPLICATIONS. 1. Entry into gallbladder during insertion of the 5-mm [employer] trocar. 2. Enterotomy of the transverse colon during initial adhesiolysis to get into the abdominal cavity. DISPOSITION: Recovery area. Disclaimer: Inadvertent spelling and grammatical errors are likely due to EHR/ dictation software use and do not reflect on the quality of delivered patient care. Also, please note that the electronic time recorded on this node does not necessarily reflect the actual time of the visit. Dictated By: SHANDRA LOPEZ/JEFRY Conf#: [id number] DID#: [id number] MTDD
[2016-05-15 16:17] LABS: ADD SCAN DIFF NO
[2016-05-15 16:21] LABS: ABNORMAL IP MESSAGE 1; HEMATOCRIT 31.8 % (42.0-52.0); HEMOGLOBIN 10.9 g/dl (14.0-18.0); MEAN CORPUSCULAR HEMOGLOBIN 30.4 pg (29.0-33.0); MEAN CORPUSCULAR HGB CONC 34.3 g/dl (32.0-37.0); MEAN CORPUSCULAR VOLUME 88.8 fl (82.0-101.0); MEAN PLATELET VOLUME 10.1 fl (7.4-10.4); PLATELET COUNT 200 10^3/UL (140-415); RED BLOOD COUNT 3.58 10^6/ul (4.70-6.10); RED CELL DISTRIBUTION WIDTH 13.8 % (11.5-14.5); WHITE BLOOD COUNT 6.7 10^3/ul (4.8-10.8)
[2016-05-15 16:29] LABS: ALBUMIN 2.7 g/dl (3.3-4.9)
[2016-05-15 16:30] LABS: INR 1.05; POTASSIUM 3.8 mmol/L (3.5-5.1); PROTIME 13.7 Sec (12.2-14.2); PT RATIO 1.1
[2016-05-15 16:31] LABS: PARTIAL THROMBOPLASTIN TIME 29.6 Sec (25.0-35.0)
[2016-05-15 16:32] LABS: BILIRUBIN,INDIRECT 0.1 mg/dl (0-1.1); BILIRUBIN,TOTAL 0.1 mg/dl (0.2-1.3); CREATININE 0.58 mg/dl (0.61-1.24); TOTAL PROTEIN 5.4 g/dl (6.1-8.1)
[2016-05-15 16:33] LABS: CALCIUM 7.6 mg/dl (8.4-10.2)
[2016-05-15 17:02] LABS: MAGNESIUM 1.4 mg/dl (1.7-2.5); PHOSPHORUS 3.7 mg/dl (2.5-4.9)
[2016-05-15] MEDS: PIPER-TAZO 3.375 GM IV (PMX) 100 ML IVPB SCH ×2 (17:19→23:21)
[2016-05-15] MEDS: D5W-0.45 NACL + KCL 20 MEQ 1,000 ML IV SCH (17:19)
[2016-05-15] MEDS: FAT EMULSION 20% 250 ML IV SCH (17:19)
[2016-05-15] MEDS: HYDROmorphONE 0.2 MG/ML PCA IV SCH (17:25)
[2016-05-15 17:42] LABS: LYMPHOCYTES # 0.2 10^3/ul (0.8-2.9); MONOCYTE # 0.2 10^3/ul (0.3-0.9); NEUTROPHIL # 4.6 10^3/ul (1.6-7.5)
--- NOTE | 2016-05-15 20:23 | CONS ---
DATE OF ADMISSION: 05/08/2016 DATE OF CONSULTATION: TYPE OF CONSULTATION: Gastroenterology consultation followup. HISTORY OF PRESENT ILLNESS: The patient is a 60-year-old male with a history of cancer of the stoma ch, for which he had a surgery. The patient was having intractable nausea and vomiting for the last few months. He underwent endoscopy twice. He had a stenosis at the anastomotic site and all the bio psies were so far negative. The patient's PET scan was negative as an outpatient and CAT scan was n egative, also a couple of CAT scans were negative. So we are waiting for the approval for the [facility] ent of axial stent for the anastomosis to get dilated. However, in the interim, the patient got adm itted through the ER. The patient was scoped by my associate, he found a severe stenosis with large food residue so Dr. Mar was called in for a consult and patient underwent surgery today. Patient had a cholecystectomy because the trocar had entered into the gallbladder during laparoscopic surge ry and also there was an enterostomy to the transverse colon during adhesiolysis. So patient also h ad a repair of that and in the laparoscopic it was an open surgery done. The patient was exam ined by me in the recovery room. Appears to be stable. PHYSICAL EXAMINATION VITALS: Stable. ABDOMEN: Soft was covered with a dressing. No drains were placed. LUNGS: Clear. CARDIOVASCULAR: No murmur. EXTREMITIES: No edema. CENTRAL NERVOUS SYSTEM: The patient was responding. IMPRESSION: 1. Status post surgery for severe anastomotic stenosis. 2. Status post cholecystectomy. 3. Status post closure of the enterotomy. 4. History of stomach cancer. PLAN: To continue postop care and we will follow the patient. ADDENDUM: My associate forgot to give me the check out on this patient, accidentally I found out, so I could not follow the patient for 3 days. Dictated By: INA CARCAMO/JEFRY Conf#: [id number] DID#: [id number]
--- NOTE | 2016-05-15 21:18 | CONS ---
Date/Time of Note Date/Time of Note DATE: 05/15/16 TIME: 21:15 Assessment/Plan Assessment/Plan Chief Complaint/Hosp Course HX GASTRIC CANCER INCOMPLETE RECORD SP Stomach surgery sec to stomach cancer - s/p RNY surgery OLD RECORD-P PER DR VALENTINE NOTE- History of gastric cancer status post resection in [facility] 20 years ago followed by re-resection at [facility] in 2013 and then treated with radiation and chemotherapy. (Details are missing) . History of gastric outlet obstruction with multiple endoscopic evaluations and at least in 2015 and 2016. Five endoscopic evaluations, none of which showed evidence of recurrence of cancer , but the patient was not able to be dilated due to the small pinhole opening that was connecting his stomach to his small intestine. -Gastric outflow obstruction ENDOSCOPY- NOTED POST OP -Intractable vomiting with nausea 2/2 high grade gastric outlet obstruction - per GI - Zofran esophagitis Small bilateral nonobstructing renal calculi. Atherosclerotic vascular disease. Smoker- Current every day smoker(1-2 TIMES PER WEEK, CIGARETTES) Right hydrocele. - Urology consult appreciated- Dr Lozada notified Small bilateral nonobstructing renal calculi. - per Urology Atherosclerotic vascular disease. Hx Esophagitis SCDs for DVT prophylaxis Protonix for GI prophylaxis Problems: Consultation Date/Type/Reason Admit Date/Time May 08, 2016 at 13:19 Initial Consult Date 05/08/16 Type of Consultation: hemeon Referring Provider: SOFIA SHAFFER MD 24 HR Interval Summary Free Text/Dictation all noted post op in ICU patient underwent surgery today. Patient had a cholecystectomy because the trocar had entered into the gallbladder during laparoscopic surgery and also there was an enterostomy to the transverse colon during adhesiolysis. Exam/Review of Systems Vital Signs Vitals Vital Signs Date Time Temp Pulse Resp B/P Pulse Ox O2 Delivery O2 Flow Rate FiO2 05/15/16 20:00 88 05/15/16 19:40 97.9 17 112/81 100 Room Air Intake and Output 05/14/16 05/14/16 05/15/16 15:00 23:00 07:00 Intake Total 1000 ml 850 ml Output Total 700 ml 500 ml Balance 300 ml 350 ml Exam Constitutional: alert, oriented, well developed Psych: no complaints Head: atraumatic Eyes: EOMI, PERRL, nl sclera ENMT: nl external ears & nose Neck: non-tender Respiratory: clear to auscultation Cardiovascular: nl pulses Gastrointestinal: POST OP, NO BS Musculoskeletal: nl extremities to inspection Extremities: normal pulses Neurological: nl mental status, nl speech Skin: nl turgor Lymph: nontender Results Result Diagram: 05/15/16 1605 05/15/16 1605 Results 24 hrs Laboratory Tests Test 05/14/16 23:45 05/15/16 05:25 05/15/16 06:13 05/15/16 14:20 Bedside Glucose 111 101 190 Activated Partial Thromboplast Time 31.1 Anion Gap 13 Basophils # 0.0 Basophils % 0.2 Blood Urea Nitrogen 20 Calcium Level 8.4 Carbon Dioxide Level 26 Chloride Level 101 Creatinine 0.78 Eosinophils # 0.1 Eosinophils % 2.2 Glucose Level 90 Hematocrit 29.8 L Hemoglobin 10.1 L INR International Normalized Ratio 1.06 Lymphocytes # 0.8 Lymphocytes % 17.0 Magnesium Level 1.8 Mean Corpuscular Hemoglobin 30.4 Mean Corpuscular Hemoglobin Concent 33.9 Mean Corpuscular Volume 89.8 Mean Platelet Volume 10.4 Monocytes # 0.4 Monocytes % 8.7 Neutrophils # 3.3 Neutrophils % 71.7 Nucleated Red Blood Cells # 0.0 Nucleated Red Blood Cells % 0.0 Phosphorus Level 4.0 Platelet Count 166 Potassium Level 4.1 Prothrombin Time 13.8 Prothrombin Time Ratio 1.1 Red Blood Count 3.32 L Red Cell Distribution Width 13.9 Sodium Level 136 Thrombin Time 15.1 White Blood Count 4.6 #L Test 05/15/16 16:05 05/15/16 17:14 Activated Partial Thromboplast Time 29.6 Alanine Aminotransferase (ALT/SGPT) 44 Albumin 2.7 L Albumin/Globulin Ratio 1.00 Alkaline Phosphatase 244 H Anion Gap 14 Aspartate Amino Transf (AST/SGOT) 57 H Band Neutrophils % 26.0 H Blood Urea Nitrogen 20 Calcium Level 7.6 L Carbon Dioxide Level 20 L Chloride Level 107 Creatinine 0.58 L Direct Bilirubin 0.00 Eosinophils # Eosinophils % Globulin 2.70 Glucose Level 148 # Hematocrit 31.8 L Hemoglobin 10.9 L INR International Normalized Ratio 1.05 Indirect Bilirubin 0.1 Lymphocytes # 0.2 L Lymphocytes % 3.0 L Magnesium Level 1.4 L Mean Corpuscular Hemoglobin 30.4 Mean Corpuscular Hemoglobin Concent 34.3 Mean Corpuscular Volume 88.8 Mean Platelet Volume 10.1 Monocytes # 0.2 L Monocytes % 3.0 Neutrophils # 4.6 Neutrophils % 68.0 Phosphorus Level 3.7 Platelet Count 200 # Potassium Level 3.8 Prothrombin Time 13.7 Prothrombin Time Ratio 1.1 Red Blood Count 3.58 L Red Cell Distribution Width 13.8 Sodium Level 137 Total Bilirubin 0.1 L Total Protein 5.4 L White Blood Count 6.7 # Bedside Glucose 170 Medications Medications Current Medications Ondansetron HCl (Zofran Inj) 4 mg Q6H PRN IV NAUSEA AND/OR VOMITING Last administered on 05/15/16 15:38; Admin Dose 4 MG; Start 05/08/16 at 15:00 Pantoprazole (Protonix Iv) 40 mg BID@06,18 IV Last administered on 05/15/16 06 :11; Admin Dose 40 MG; Start 05/08/16 at 20:00 IV Flush 10 ml 10 ml PRN PRN IV IV PROTOCOL; Start 05/13/16 at 17:30 Total Parenteral Nutrition 1,000 ml @ 75 mls/hr [id number] IV Last administered on 05/15/16 16:22; Admin Dose 75 MLS/HR; Start 05/13/16 at 18:00 Fat Emulsion Intravenous (Liposyn Ii 20%) 250 ml @ 31 mls/hr DAILY@16 IV Last administered on 05/15/16 17:19; Admin Dose 31 MLS/HR; Start 05/13/16 at 18:00 Lorazepam (Ativan) 1 mg Q6H PRN IV ANXIETY Last administered on 05/14/16 22:43 ; Admin Dose 1 MG; Start 05/14/16 at 00:00 Diagnostic Test (Pha) 1 ea 1 ea Q6 XX Last administered on 05/15/16 06:18; Admin Dose 1 EA; Start 05/15/16 at 00:00 Potassium Chloride/Dextrose/ Sod Cl (D5-1/2ns + KCl 20 Meq) 1,000 ml @ 100 mls/ hr Q10H IV Last administered on 05/15/16 17:19; Admin Dose 100 MLS/HR; Start 05/15/16 at 14:46 Acetaminophen/ Hydrocodone Bitart ([place] (5/325)) 1 tab Q4H PRN PO PAIN LEVEL 4 -7; Start 05/15/16 at 15:00 Acetaminophen/ Hydrocodone Bitart ([place] (5/325)) 2 tab Q4H PRN PO PAIN LEVEL 7 -10; Start 05/15/16 at 15:00 Hydromorphone HCl (Dilaudid) 0.5 mg Q2 PRN IV PAIN; Start 05/15/16 at 15:00 Hydromorphone HCl (Dilaudid) 1 mg Q2 PRN IV PAIN; Start 05/15/16 at 15:00 Docusate Sodium (Colace) 100 mg BID PRN PO CONSTIPATION; Start 05/15/16 at 15: 00 Bisacodyl (Dulcolax Supp) 10 mg BID PRN [place] CONSTIPATION; Start 05/15/16 at 15: 00 Sodium Biphosphate/ Sodium Phosphate (Fleet Enema) 133 ml BID PRN [place] CONSTIPATION; Start 05/15/16 at 15:00 Enoxaparin Sodium 40 mg 40 mg DAILY SC ; Start 05/16/16 at 09:00 Piperacillin Sod/ Tazobactam Sod (Zosyn 3.375gm/ 100 ml (Pmx)) 100 ml @ 200 mls /hr Q8 IVPB Last administered on 05/15/16 17:19; Admin Dose 200 MLS/HR; Start 05/15/16 at 15:00; Stop 05/17/16 at 20:00 Naloxone HCl (Narcan) 0.2 mg Q2M PRN IV RR 8 BREATHS/MIN OR LESS; Start at 15:00 Hydromorphone HCl (Dilaudid PURCH[employer]ING MANAGER) Q4PCA IV Last administered on 05/15/16 17:25 ; Admin Dose 6 MG; Start 05/15/16 at 15:00 DIANNA SCOTT MD May 15, 2016 21:18
[2016-05-16] VITALS (24 sets, daily range): BP systolic 92–107; BP diastolic 59–83; PULSE 77–104; RESP 10–30
[2016-05-16 04:40] LABS: ADD SCAN DIFF NO
[2016-05-16] MEDS: D5W-0.45 NACL + KCL 20 MEQ 1,000 ML IV SCH ×2 (04:41→10:46)
[2016-05-16 04:49] LABS: BASOPHILS % 0.1 % (0.0-2.0); HEMATOCRIT 30.4 % (42.0-52.0); HEMOGLOBIN 10.1 g/dl (14.0-18.0); LYMPHOCYTES # 0.6 10^3/ul (0.8-2.9); LYMPHOCYTES % 4.2 % (15.0-51.0); MEAN CORPUSCULAR HEMOGLOBIN 29.6 pg (29.0-33.0); MEAN CORPUSCULAR HGB CONC 33.2 g/dl (32.0-37.0); MEAN CORPUSCULAR VOLUME 89.1 fl (82.0-101.0); MEAN PLATELET VOLUME 11.2 fl (7.4-10.4); MONOCYTE # 0.4 10^3/ul (0.3-0.9); MONOCYTES % 2.9 % (0.0-11.0); NEUTROPHIL # 13.6 10^3/ul (1.6-7.5); PLATELET COUNT 175 10^3/UL (140-415); RED BLOOD COUNT 3.41 10^6/ul (4.70-6.10); WHITE BLOOD COUNT 14.7 10^3/ul (4.8-10.8)
[2016-05-16 04:52] LABS: INR 1.25; PROTIME 15.8 Sec (12.2-14.2); PT RATIO 1.2
[2016-05-16 04:54] LABS: NEUTROPHILS % 92.4 % (39.0-77.0); PARTIAL THROMBOPLASTIN TIME 32.6 Sec (25.0-35.0)
[2016-05-16 04:56] LABS: ALBUMIN 2.3 g/dl (3.3-4.9)
[2016-05-16 04:57] LABS: POTASSIUM 4.4 mmol/L (3.5-5.1)
[2016-05-16 04:59] LABS: ALBUMIN/GLOBULIN RATIO 0.92; BILIRUBIN,INDIRECT 0.3 mg/dl (0-1.1); BILIRUBIN,TOTAL 0.3 mg/dl (0.2-1.3); CREATININE 0.64 mg/dl (0.61-1.24); TOTAL PROTEIN 4.8 g/dl (6.1-8.1)
[2016-05-16 05:00] LABS: CALCIUM 7.6 mg/dl (8.4-10.2); MAGNESIUM 1.4 mg/dl (1.7-2.5); PHOSPHORUS 3.8 mg/dl (2.5-4.9)
[2016-05-16] MEDS: PIPER-TAZO 3.375 GM IV (PMX) 100 ML IVPB SCH ×3 (05:50→22:37)
[2016-05-16] MEDS: PANTOPRAZOLE 40 MG INJ IV SCH ×2 (05:54→17:12)
[2016-05-16] MEDS: ACCU-CHEK XX SCH ×4 (06:00→17:27)
[2016-05-16] MEDS: TPN 1,000 ML IV SCH ×2 (06:04→20:11)
[2016-05-16] MEDS: ENOXAPARIN 40 MG/0.4 ML SYG SC SCH (09:38)
--- NOTE | 2016-05-16 12:01 | CONS ---
Date/Time of Note Date/Time of Note DATE: 05/16/16 TIME: 11:59 Assessment/Plan Assessment/Plan Additional Assessment/Plan IMPRESSION: 1. Status post surgery for severe anastomotic stenosis. 2. Status post cholecystectomy. 3. Status post closure of the enterotomy. 4. History of stomach cancer. 5. Nicotine usage 6. Rt. hydrocele Plan advance diet continue present care review path when available. Consultation Date/Type/Reason Admit Date/Time May 08, 2016 at 13:19 Initial Consult Date 05/08/16 [facility] Referring Provider: SOFIA SHAFFER MD 24 HR Interval Summary Constitutional: improved, no complaints Exam/Review of Systems Vital Signs Vitals Vital Signs Date Time Temp Pulse Resp B/P Pulse Ox O2 Delivery O2 Flow Rate FiO2 05/16/16 10:00 83 19 102/59 99 Room Air 05/16/16 08:00 97.9 Intake and Output 05/15/16 05/15/16 05/16/16 15:00 23:00 07:00 Intake Total 2280 ml 741.6 ml 1318.4 ml Output Total 380 ml 375 ml 730 ml Balance 1900 ml 366.6 ml 588.4 ml Exam Constitutional: alert, oriented, well developed Psych: nl mood/affect, no complaints Head: atraumatic, normocephalic Eyes: EOMI, PERRL, nl conjunctiva, nl lids, nl sclera ENMT: nl external ears & nose, nl lips & teeth, nl nasal mucosa & septum Neck: non-tender, supple Respiratory: clear to auscultation, normal air movement Cardiovascular: nl pulses, regular rate and rhythm Gastrointestinal: nl liver, spleen, non-tender, soft Musculoskeletal: nl extremities to inspection, nl gait and stance Extremities: normal pulses Neurological: [employer]IST II-XII intact, nl mental status, nl speech, nl strength Skin: nl turgor, No rash or lesions Lymph: nl lymph nodes Results Result Diagram: 05/16/16 0345 05/16/16 0345 Results 24 hrs Laboratory Tests Test 05/15/16 14:20 05/15/16 16:05 05/15/16 17:14 05/16/16 01:28 Bedside Glucose 190 170 167 Activated Partial Thromboplast Time 29.6 Alanine Aminotransferase (ALT/SGPT) 44 Albumin 2.7 L Albumin/Globulin Ratio 1.00 Alkaline Phosphatase 244 H Anion Gap 14 Aspartate Amino Transf (AST/SGOT) 57 H Band Neutrophils % 26.0 H Blood Urea Nitrogen 20 Calcium Level 7.6 L Carbon Dioxide Level 20 L Chloride Level 107 Creatinine 0.58 L Direct Bilirubin 0.00 Eosinophils # Eosinophils % Globulin 2.70 Glucose Level 148 # Hematocrit 31.8 L Hemoglobin 10.9 L INR International Normalized Ratio 1.05 Indirect Bilirubin 0.1 Lymphocytes # 0.2 L Lymphocytes % 3.0 L Magnesium Level 1.4 L Mean Corpuscular Hemoglobin 30.4 Mean Corpuscular Hemoglobin Concent 34.3 Mean Corpuscular Volume 88.8 Mean Platelet Volume 10.1 Monocytes # 0.2 L Monocytes % 3.0 Neutrophils # 4.6 Neutrophils % 68.0 Phosphorus Level 3.7 Platelet Count 200 # Potassium Level 3.8 Prothrombin Time 13.7 Prothrombin Time Ratio 1.1 Red Blood Count 3.58 L Red Cell Distribution Width 13.8 Sodium Level 137 Total Bilirubin 0.1 L Total Protein 5.4 L White Blood Count 6.7 # Test 05/16/16 03:45 05/16/16 05:57 Activated Partial Thromboplast Time 32.6 Alanine Aminotransferase (ALT/SGPT) 38 Albumin 2.3 L Albumin/Globulin Ratio 0.92 Alkaline Phosphatase 182 H Anion Gap 12 Aspartate Amino Transf (AST/SGOT) 35 B-Type Natriuretic Peptide 220 H Basophils # 0.0 Basophils % 0.1 Blood Urea Nitrogen 19 Calcium Level 7.6 L Carbon Dioxide Level 20 L Chloride Level 105 Creatinine 0.64 Direct Bilirubin 0.00 Eosinophils # 0.0 Eosinophils % 0.0 Globulin 2.50 Glucose Level 161 Hematocrit 30.4 L Hemoglobin 10.1 L INR International Normalized Ratio 1.25 Indirect Bilirubin 0.3 Lactic Acid Level 1.4 Lymphocytes # 0.6 L Lymphocytes % 4.2 L Magnesium Level 1.4 L Mean Corpuscular Hemoglobin 29.6 Mean Corpuscular Hemoglobin Concent 33.2 Mean Corpuscular Volume 89.1 Mean Platelet Volume 11.2 H Monocytes # 0.4 Monocytes % 2.9 Neutrophils # 13.6 H Neutrophils % 92.4 H Nucleated Red Blood Cells # 0.0 Nucleated Red Blood Cells % 0.0 Phosphorus Level 3.8 Platelet Count 175 Potassium Level 4.4 Prothrombin Time 15.8 H Prothrombin Time Ratio 1.2 Red Blood Count 3.41 L Red Cell Distribution Width 14.0 Sodium Level 133 L Total Bilirubin 0.3 Total Protein 4.8 L White Blood Count 14.7 #H Bedside Glucose 169 Medications Medications Current Medications Ondansetron HCl (Zofran Inj) 4 mg Q6H PRN IV NAUSEA AND/OR VOMITING Last administered on 05/15/16 15:38; Admin Dose 4 MG; Start 05/08/16 at 15:00 Pantoprazole (Protonix Iv) 40 mg BID@06,18 IV Last administered on 05/16/16 05 :54; Admin Dose 40 MG; Start 05/08/16 at 20:00 IV Flush 10 ml 10 ml PRN PRN IV IV PROTOCOL; Start 05/13/16 at 17:30 Total Parenteral Nutrition 1,000 ml @ 75 mls/hr [id number] IV Last administered on 05/16/16 06:04; Admin Dose 75 MLS/HR; Start 05/13/16 at 18:00 Fat Emulsion Intravenous (Liposyn Ii 20%) 250 ml @ 31 mls/hr DAILY@16 IV Last administered on 05/15/16 17:19; Admin Dose 31 MLS/HR; Start 05/13/16 at 18:00 Lorazepam (Ativan) 1 mg Q6H PRN IV ANXIETY Last administered on 05/14/16 22:43 ; Admin Dose 1 MG; Start 05/14/16 at 00:00 Diagnostic Test (Pha) 1 ea 1 ea Q6 XX Last administered on 05/16/16 00:00; Admin Dose 1 EA; Start 05/15/16 at 00:00 Potassium Chloride/Dextrose/ Sod Cl (D5-1/2ns + KCl 20 Meq) 1,000 ml @ 100 mls/ hr Q10H IV Last administered on 05/16/16 04:41; Admin Dose 100 MLS/HR; Start 05/15/16 at 14:46 Acetaminophen/ Hydrocodone Bitart ([place] (5/325)) 1 tab Q4H PRN PO PAIN LEVEL 4 -7; Start 05/15/16 at 15:00 Acetaminophen/ Hydrocodone Bitart ([place] (5/325)) 2 tab Q4H PRN PO PAIN LEVEL 7 -10; Start 05/15/16 at 15:00 Hydromorphone HCl (Dilaudid) 0.5 mg Q2 PRN IV PAIN; Start 05/15/16 at 15:00 Hydromorphone HCl (Dilaudid) 1 mg Q2 PRN IV PAIN; Start 05/15/16 at 15:00 Docusate Sodium (Colace) 100 mg BID PRN PO CONSTIPATION; Start 05/15/16 at 15: 00 Bisacodyl (Dulcolax Supp) 10 mg BID PRN [place] CONSTIPATION; Start 05/15/16 at 15: 00 Sodium Biphosphate/ Sodium Phosphate (Fleet Enema) 133 ml BID PRN [place] CONSTIPATION; Start 05/15/16 at 15:00 Enoxaparin Sodium 40 mg 40 mg DAILY SC Last administered on 05/16/16 09:38; Admin Dose 40 MG; Start 05/16/16 at 09:00 Piperacillin Sod/ Tazobactam Sod (Zosyn 3.375gm/ 100 ml (Pmx)) 100 ml @ 200 mls /hr Q8 IVPB Last administered on 05/16/16 05:50; Admin Dose 200 MLS/HR; Start 05/15/16 at 15:00; Stop 05/17/16 at 20:00 Naloxone HCl (Narcan) 0.2 mg Q2M PRN IV RR 8 BREATHS/MIN OR LESS; Start at 15:00 Hydromorphone HCl (Dilaudid BLUE LEATHER SORTER) Q4PCA IV Last administered on 05/15/16 17:25 ; Admin Dose 6 MG; Start 05/15/16 at 15:00 INA TOVAR MD May 16, 2016 12:00
--- NOTE | 2016-05-16 12:03 | CONS ---
Date/Time of Note Date/Time of Note DATE: 05/16/16 TIME: 12:01 Assessment/Plan Assessment/Plan Chief Complaint/Hosp Course IMPRESSION: 1. Preoperative evaluation prior to surgery for gastric outlet obstruction.- NO cardiac contraindication to proceeding with surgery at this time at moderate risk. Check post-op ECG and follow for s/s/x of CV complications post- operatively 2. Abnormal electrocardiogram with T-wave flattening in aVL.-negative troponin x 2 3. Diastolic dysfunction by 2-D echo done this admission. 4. Hypertension, labile with borderline hypotension. 5. Gastric outlet obstruction. 6. Nausea, vomiting secondary to gastric outlet obstruction. 7. Weight loss secondary to gastric outlet obstruction. 8. Recent cessation of tobacco usage. Recc: -Continue pain control -Continue TPN -Follow BP clsoely which is marginal -Check post-op ECG Problems: Consultation Date/Type/Reason Admit Date/Time May 08, 2016 at 13:19 Initial Consult Date 05/08/16 Type of Consultation: Cardiology Reason for Consultation pre-op Referring Provider: SOFIA SHAFFER MD Exam/Review of Systems Vital Signs Vitals Vital Signs Date Time Temp Pulse Resp B/P Pulse Ox O2 Delivery O2 Flow Rate FiO2 05/16/16 10:00 83 19 102/59 99 Room Air 05/16/16 08:00 97.9 Intake and Output 05/15/16 05/15/16 05/16/16 15:00 23:00 07:00 Intake Total 2280 ml 741.6 ml 1318.4 ml Output Total 380 ml 375 ml 730 ml Balance 1900 ml 366.6 ml 588.4 ml Exam Review of Systems: CONSTITUTIONAL: No fevers, chills. PULMONARY: No sob CARDIOVASCULAR: No chest pain/palpitations GASTROINTESTINAL: mild abd pain GENITOURINARY: No hematuria/dysuria. MUSCULOSKELETAL: No myagias/arthalgias. PSYCHIATRIC: The patient denies depression. NEUROLOGIC: No weakness Constitutional: alert Psych: no complaints Head: normocephalic ENMT: mucosa pink and moist Neck: jvd (9 cm water), supple Respiratory: diminished breath sounds (at bases/B) Cardiovascular: regular rate and rhythm Gastrointestinal: other (covered by dressing), tender Musculoskeletal: muscle tone (normal) Extremities: edema (none) Neurological: other (No focal deficits) Results Result Diagram: 05/16/16 0345 05/16/16 0345 Results 24 hrs Laboratory Tests Test 05/15/16 14:20 05/15/16 16:05 05/15/16 17:14 05/16/16 01:28 Bedside Glucose 190 170 167 Activated Partial Thromboplast Time 29.6 Alanine Aminotransferase (ALT/SGPT) 44 Albumin 2.7 L Albumin/Globulin Ratio 1.00 Alkaline Phosphatase 244 H Anion Gap 14 Aspartate Amino Transf (AST/SGOT) 57 H Band Neutrophils % 26.0 H Blood Urea Nitrogen 20 Calcium Level 7.6 L Carbon Dioxide Level 20 L Chloride Level 107 Creatinine 0.58 L Direct Bilirubin 0.00 Eosinophils # Eosinophils % Globulin 2.70 Glucose Level 148 # Hematocrit 31.8 L Hemoglobin 10.9 L INR International Normalized Ratio 1.05 Indirect Bilirubin 0.1 Lymphocytes # 0.2 L Lymphocytes % 3.0 L Magnesium Level 1.4 L Mean Corpuscular Hemoglobin 30.4 Mean Corpuscular Hemoglobin Concent 34.3 Mean Corpuscular Volume 88.8 Mean Platelet Volume 10.1 Monocytes # 0.2 L Monocytes % 3.0 Neutrophils # 4.6 Neutrophils % 68.0 Phosphorus Level 3.7 Platelet Count 200 # Potassium Level 3.8 Prothrombin Time 13.7 Prothrombin Time Ratio 1.1 Red Blood Count 3.58 L Red Cell Distribution Width 13.8 Sodium Level 137 Total Bilirubin 0.1 L Total Protein 5.4 L White Blood Count 6.7 # Test 05/16/16 03:45 05/16/16 05:57 Activated Partial Thromboplast Time 32.6 Alanine Aminotransferase (ALT/SGPT) 38 Albumin 2.3 L Albumin/Globulin Ratio 0.92 Alkaline Phosphatase 182 H Anion Gap 12 Aspartate Amino Transf (AST/SGOT) 35 B-Type Natriuretic Peptide 220 H Basophils # 0.0 Basophils % 0.1 Blood Urea Nitrogen 19 Calcium Level 7.6 L Carbon Dioxide Level 20 L Chloride Level 105 Creatinine 0.64 Direct Bilirubin 0.00 Eosinophils # 0.0 Eosinophils % 0.0 Globulin 2.50 Glucose Level 161 Hematocrit 30.4 L Hemoglobin 10.1 L INR International Normalized Ratio 1.25 Indirect Bilirubin 0.3 Lactic Acid Level 1.4 Lymphocytes # 0.6 L Lymphocytes % 4.2 L Magnesium Level 1.4 L Mean Corpuscular Hemoglobin 29.6 Mean Corpuscular Hemoglobin Concent 33.2 Mean Corpuscular Volume 89.1 Mean Platelet Volume 11.2 H Monocytes # 0.4 Monocytes % 2.9 Neutrophils # 13.6 H Neutrophils % 92.4 H Nucleated Red Blood Cells # 0.0 Nucleated Red Blood Cells % 0.0 Phosphorus Level 3.8 Platelet Count 175 Potassium Level 4.4 Prothrombin Time 15.8 H Prothrombin Time Ratio 1.2 Red Blood Count 3.41 L Red Cell Distribution Width 14.0 Sodium Level 133 L Total Bilirubin 0.3 Total Protein 4.8 L White Blood Count 14.7 #H Bedside Glucose 169 Medications Medications Current Medications Ondansetron HCl (Zofran Inj) 4 mg Q6H PRN IV NAUSEA AND/OR VOMITING Last administered on 05/15/16 15:38; Admin Dose 4 MG; Start 05/08/16 at 15:00 Pantoprazole (Protonix Iv) 40 mg BID@06,18 IV Last administered on 05/16/16 05 :54; Admin Dose 40 MG; Start 05/08/16 at 20:00 IV Flush 10 ml 10 ml PRN PRN IV IV PROTOCOL; Start 05/13/16 at 17:30 Total Parenteral Nutrition 1,000 ml @ 75 mls/hr [id number] IV Last administered on 05/16/16 06:04; Admin Dose 75 MLS/HR; Start 05/13/16 at 18:00 Fat Emulsion Intravenous (Liposyn Ii 20%) 250 ml @ 31 mls/hr DAILY@16 IV Last administered on 05/15/16 17:19; Admin Dose 31 MLS/HR; Start 05/13/16 at 18:00 Lorazepam (Ativan) 1 mg Q6H PRN IV ANXIETY Last administered on 05/14/16 22:43 ; Admin Dose 1 MG; Start 05/14/16 at 00:00 Diagnostic Test (Pha) 1 ea 1 ea Q6 XX Last administered on 05/16/16 00:00; Admin Dose 1 EA; Start 05/15/16 at 00:00 Potassium Chloride/Dextrose/ Sod Cl (D5-1/2ns + KCl 20 Meq) 1,000 ml @ 100 mls/ hr Q10H IV Last administered on 05/16/16 04:41; Admin Dose 100 MLS/HR; Start 05/15/16 at 14:46 Acetaminophen/ Hydrocodone Bitart ([place] (5/325)) 1 tab Q4H PRN PO PAIN LEVEL 4 -7; Start 05/15/16 at 15:00 Acetaminophen/ Hydrocodone Bitart ([place] (5/325)) 2 tab Q4H PRN PO PAIN LEVEL 7 -10; Start 05/15/16 at 15:00 Hydromorphone HCl (Dilaudid) 0.5 mg Q2 PRN IV PAIN; Start 05/15/16 at 15:00 Hydromorphone HCl (Dilaudid) 1 mg Q2 PRN IV PAIN; Start 05/15/16 at 15:00 Docusate Sodium (Colace) 100 mg BID PRN PO CONSTIPATION; Start 05/15/16 at 15: 00 Bisacodyl (Dulcolax Supp) 10 mg BID PRN [place] CONSTIPATION; Start 05/15/16 at 15: 00 Sodium Biphosphate/ Sodium Phosphate (Fleet Enema) 133 ml BID PRN [place] CONSTIPATION; Start 05/15/16 at 15:00 Enoxaparin Sodium 40 mg 40 mg DAILY SC Last administered on 05/16/16 09:38; Admin Dose 40 MG; Start 05/16/16 at 09:00 Piperacillin Sod/ Tazobactam Sod (Zosyn 3.375gm/ 100 ml (Pmx)) 100 ml @ 200 mls /hr Q8 IVPB Last administered on 05/16/16 05:50; Admin Dose 200 MLS/HR; Start 05/15/16 at 15:00; Stop 05/17/16 at 20:00 Naloxone HCl (Narcan) 0.2 mg Q2M PRN IV RR 8 BREATHS/MIN OR LESS; Start at 15:00 Hydromorphone HCl (Dilaudid [employer] WORK[employer] FOREMAN) Q4PCA IV Last administered on 05/15/16 17:25 ; Admin Dose 6 MG; Start 05/15/16 at 15:00 AVEL DOS SANTOS May 16, 2016 12:03
--- NOTE | 2016-05-16 14:43 | PN ---
Date/Time of Note Date/Time of Note DATE: 05/16/16 TIME: 14:39 Assessment/Plan VTE Prophylaxis VTE Prophylaxis Intervention: SCD's Lines/Catheters IV [facility] Type [facility]from [facility] A Line Urinary Cath still in place: No Assessment/Plan Chief Complaint/Hosp Course Assessment/Plan - Gastric outlet obstructive obstruction, status post EGD. Dr. Landeros who is covering for Dr. Gallego is following in gastroenterology consultation. Dr. Mar is following patient in general surgery consultation. Continue patient n.p.o., NG tube to low wall suctioning. Continue TPN and lipids Dr. Gongora is following patient in for cardiology consultation, cleared for surgery. - S/p surgery for severe anastomosis stenosis. Low nue TPN, advance diet per surgery. Continue IS Q1 hr while awake. - Gastrics cancer status post surgery 2-1/2 years ago, status post chemotherapy and radiation. Patient was followed as an outpatient by Dr. Lou in radiation oncology and Dr. Lawrence oncology. Dr. Iglesias is following in hematology/ oncology consultation. -Tobacco dependence. Tobacco cessation is strongly advised. Continue sequential compression device for deep venous thrombosis prophylaxis and Protonix for peptic ulcer disease prophylaxis. Further recommendations based on clinical course. Plan of care discussed with Dr. Self. Problems: Subjective 24 Hr Interval Summary Free Text/Dictation Patient's pain is well controlled with CHEESE TESTER Dilaudid, BP is on low side, stable HR and respiratory status, OK to transfer to [facility] when cleared by surgery. Exam/Review of Systems Vital Signs Vitals Vital Signs Date Time Temp Pulse Resp B/P Pulse Ox O2 Delivery O2 Flow Rate FiO2 05/16/16 12:00 90 05/16/16 10:00 19 102/59 99 Room Air 05/16/16 08:00 97.9 Intake and Output 05/15/16 05/15/16 05/16/16 15:00 23:00 07:00 Intake Total 2280 ml 741.6 ml 1318.4 ml Output Total 380 ml 375 ml 730 ml Balance 1900 ml 366.6 ml 588.4 ml Exam Constitutional: alert, oriented Psych: no complaints Head: atraumatic, normocephalic Eyes: nl conjunctiva ENMT: nl external ears & nose, NGT. Neck: non-tender, supple Respiratory: clear to auscultation Cardiovascular: nl pulses, regular rate and rhythm Gastrointestinal: other (Mild left upper and right upper quadrant tenderness), soft, s/p surgery Musculoskeletal: nl extremities to inspection Extremities: normal pulses Neurological: TABLE TENDER II-XII intact Results Result Diagram: 05/16/16 0345 05/16/16 0345 Results 24 hrs Laboratory Tests Test 05/15/16 16:05 05/15/16 17:14 05/16/16 01:28 05/16/16 03:45 Activated Partial Thromboplast Time 29.6 32.6 Alanine Aminotransferase (ALT/SGPT) 44 38 Albumin 2.7 L 2.3 L Albumin/Globulin Ratio 1.00 0.92 Alkaline Phosphatase 244 H 182 H Anion Gap 14 12 Aspartate Amino Transf (AST/SGOT) 57 H 35 Band Neutrophils % 26.0 H Blood Urea Nitrogen 20 19 Calcium Level 7.6 L 7.6 L Carbon Dioxide Level 20 L 20 L Chloride Level 107 105 Creatinine 0.58 L 0.64 Direct Bilirubin 0.00 0.00 Eosinophils # 0.0 Eosinophils % 0.0 Globulin 2.70 2.50 Glucose Level 148 # 161 Hematocrit 31.8 L 30.4 L Hemoglobin 10.9 L 10.1 L INR International Normalized Ratio 1.05 1.25 Indirect Bilirubin 0.1 0.3 Lymphocytes # 0.2 L 0.6 L Lymphocytes % 3.0 L 4.2 L Magnesium Level 1.4 L 1.4 L Mean Corpuscular Hemoglobin 30.4 29.6 Mean Corpuscular Hemoglobin Concent 34.3 33.2 Mean Corpuscular Volume 88.8 89.1 Mean Platelet Volume 10.1 11.2 H Monocytes # 0.2 L 0.4 Monocytes % 3.0 2.9 Neutrophils # 4.6 13.6 H Neutrophils % 68.0 92.4 H Phosphorus Level 3.7 3.8 Platelet Count 200 # 175 Potassium Level 3.8 4.4 Prothrombin Time 13.7 15.8 H Prothrombin Time Ratio 1.1 1.2 Red Blood Count 3.58 L 3.41 L Red Cell Distribution Width 13.8 14.0 Sodium Level 137 133 L Total Bilirubin 0.1 L 0.3 Total Protein 5.4 L 4.8 L White Blood Count 6.7 # 14.7 #H Bedside Glucose 170 167 B-Type Natriuretic Peptide 220 H Basophils # 0.0 Basophils % 0.1 Lactic Acid Level 1.4 Nucleated Red Blood Cells # 0.0 Nucleated Red Blood Cells % 0.0 Test 05/16/16 05:57 05/16/16 12:09 Bedside Glucose 169 129 Medications Medications Current Medications Ondansetron HCl (Zofran Inj) 4 mg Q6H PRN IV NAUSEA AND/OR VOMITING Last administered on 05/15/16 15:38; Admin Dose 4 MG; Start 05/08/16 at 15:00 Pantoprazole (Protonix Iv) 40 mg BID@06,18 IV Last administered on 05/16/16 05 :54; Admin Dose 40 MG; Start 05/08/16 at 20:00 IV Flush 10 ml 10 ml PRN PRN IV IV PROTOCOL; Start 05/13/16 at 17:30 Total Parenteral Nutrition 1,000 ml @ 75 mls/hr [id number] IV Last administered on 05/16/16 06:04; Admin Dose 75 MLS/HR; Start 05/13/16 at 18:00 Fat Emulsion Intravenous (Liposyn Ii 20%) 250 ml @ 31 mls/hr DAILY@16 IV Last administered on 05/15/16 17:19; Admin Dose 31 MLS/HR; Start 05/13/16 at 18:00 Lorazepam (Ativan) 1 mg Q6H PRN IV ANXIETY Last administered on 05/14/16 22:43 ; Admin Dose 1 MG; Start 05/14/16 at 00:00 Diagnostic Test (Pha) 1 ea 1 ea Q6 XX Last administered on 05/16/16 12:00; Admin Dose 1 EA; Start 05/15/16 at 00:00 Potassium Chloride/Dextrose/ Sod Cl (D5-1/2ns + KCl 20 Meq) 1,000 ml @ 100 mls/ hr Q10H IV Last administered on 05/16/16 04:41; Admin Dose 100 MLS/HR; Start 05/15/16 at 14:46 Acetaminophen/ Hydrocodone Bitart ([place] (5/325)) 1 tab Q4H PRN PO PAIN LEVEL 4 -7; Start 05/15/16 at 15:00 Acetaminophen/ Hydrocodone Bitart ([place] (5/325)) 2 tab Q4H PRN PO PAIN LEVEL 7 -10; Start 3/16/17 at 15:00 Hydromorphone HCl (Dilaudid) 0.5 mg Q2 PRN IV PAIN; Start 05/15/16 at 15:00 Hydromorphone HCl (Dilaudid) 1 mg Q2 PRN IV PAIN; Start 05/15/16 at 15:00 Docusate Sodium (Colace) 100 mg BID PRN PO CONSTIPATION; Start 05/15/16 at 15: 00 Bisacodyl (Dulcolax Supp) 10 mg BID PRN MD CONSTIPATION; Start 05/15/16 at 15: 00 Sodium Biphosphate/ Sodium Phosphate (Fleet Enema) 133 ml BID PRN MD CONSTIPATION; Start 05/15/16 at 15:00 Enoxaparin Sodium 40 mg 40 mg DAILY SC Last administered on 05/16/16 09:38; Admin Dose 40 MG; Start 05/16/16 at 09:00 Piperacillin Sod/ Tazobactam Sod (Zosyn 3.375gm/ 100 ml (Pmx)) 100 ml @ 200 mls /hr Q8 IVPB Last administered on 05/16/16 05:50; Admin Dose 200 MLS/HR; Start 05/15/16 at 15:00; Stop 05/17/16 at 20:00 Naloxone HCl (Narcan) 0.2 mg Q2M PRN IV RR 8 BREATHS/MIN OR LESS; Start at 15:00 Hydromorphone HCl (Dilaudid CHEESE TESTER) Q4PCA IV Last administered on 05/15/16 17:25 ; Admin Dose 6 MG; Start 05/15/16 at 15:00 MERISSA PIÑA May 16, 2016 14:43
[2016-05-16] MEDS: FAT EMULSION 20% 250 ML IV SCH (17:13)
--- NOTE | 2016-05-16 22:51 | CONS ---
Date/Time of Note Date/Time of Note DATE: 05/16/16 TIME: 22:50 Assessment/Plan Assessment/Plan Chief Complaint/Hosp Course HX GASTRIC CANCER SP Stomach surgery sec to stomach cancer - s/p RNY surgery OLD RECORD-P PER DR VALENTINE NOTE- History of gastric cancer status post resection in [facility] 20 years ago followed by re-resection at [facility] in 2013 and then treated with radiation and chemotherapy. (Details are missing) . History of gastric outlet obstruction with multiple endoscopic evaluations and at least in 2015 and 2016. Five endoscopic evaluations, none of which showed evidence of recurrence of cancer , but the patient was not able to be dilated due to the small pinhole opening that was connecting his stomach to his small intestine. -Gastric outflow obstruction ENDOSCOPY- NOTED POST OP -Intractable vomiting with nausea 2/2 high grade gastric outlet obstruction - per GI - Zofran esophagitis Small bilateral nonobstructing renal calculi. Atherosclerotic vascular disease. Smoker- Current every day smoker(1-2 TIMES PER WEEK, CIGARETTES) Right hydrocele. - Urology consult appreciated- Dr Lozada notified Small bilateral nonobstructing renal calculi. - per Urology Atherosclerotic vascular disease. Hx Esophagitis SCDs for DVT prophylaxis Protonix for GI prophylaxis Problems: Consultation Date/Type/Reason Admit Date/Time May 08, 2016 at 13:19 Initial Consult Date 05/08/16 Referring Provider: SOFIA SHAFFER MD 24 HR Interval Summary Free Text/Dictation Patient's pain is well controlled with PRIMARY CARE PROVIDER Dilaudid, BP is on low side, stable HR and respiratory status, OK to transfer to [facility] when cleared by surgery. Exam/Review of Systems Vital Signs Vitals Vital Signs Date Time Temp Pulse Resp B/P Pulse Ox O2 Delivery O2 Flow Rate FiO2 05/16/16 21:44 84 05/16/16 21:30 99.0 18 103/63 99 05/16/16 21:00 Room Air Intake and Output 05/15/16 05/15/16 05/16/16 15:00 23:00 07:00 Intake Total 2280 ml 741.6 ml 1318.4 ml Output Total 380 ml 375 ml 730 ml Balance 1900 ml 366.6 ml 588.4 ml Exam Constitutional: alert, oriented Psych: no complaints Head: atraumatic, normocephalic Eyes: nl conjunctiva ENMT: nl external ears & nose, NGT. Neck: non-tender, supple Respiratory: clear to auscultation Cardiovascular: nl pulses, regular rate and rhythm Gastrointestinal: other (Mild left upper and right upper quadrant tenderness), soft, s/p surgery Musculoskeletal: nl extremities to inspection Extremities: normal pulses Neurological: OVEN TENDER BAGELS II-XII intact Results Result Diagram: 05/16/16 0345 05/16/16 0345 Results 24 hrs Laboratory Tests Test 05/16/16 01:28 05/16/16 03:45 05/16/16 05:57 05/16/16 12:09 Bedside Glucose 167 169 129 Activated Partial Thromboplast Time 32.6 Alanine Aminotransferase (ALT/SGPT) 38 Albumin 2.3 L Albumin/Globulin Ratio 0.92 Alkaline Phosphatase 182 H Anion Gap 12 Aspartate Amino Transf (AST/SGOT) 35 B-Type Natriuretic Peptide 220 H Basophils # 0.0 Basophils % 0.1 Blood Urea Nitrogen 19 Calcium Level 7.6 L Carbon Dioxide Level 20 L Chloride Level 105 Creatinine 0.64 Direct Bilirubin 0.00 Eosinophils # 0.0 Eosinophils % 0.0 Globulin 2.50 Glucose Level 161 Hematocrit 30.4 L Hemoglobin 10.1 L INR International Normalized Ratio 1.25 Indirect Bilirubin 0.3 Lactic Acid Level 1.4 Lymphocytes # 0.6 L Lymphocytes % 4.2 L Magnesium Level 1.4 L Mean Corpuscular Hemoglobin 29.6 Mean Corpuscular Hemoglobin Concent 33.2 Mean Corpuscular Volume 89.1 Mean Platelet Volume 11.2 H Monocytes # 0.4 Monocytes % 2.9 Neutrophils # 13.6 H Neutrophils % 92.4 H Nucleated Red Blood Cells # 0.0 Nucleated Red Blood Cells % 0.0 Phosphorus Level 3.8 Platelet Count 175 Potassium Level 4.4 Prothrombin Time 15.8 H Prothrombin Time Ratio 1.2 Red Blood Count 3.41 L Red Cell Distribution Width 14.0 Sodium Level 133 L Total Bilirubin 0.3 Total Protein 4.8 L White Blood Count 14.7 #H Test 05/16/16 17:21 Bedside Glucose 96 Medications Medications Current Medications Ondansetron HCl (Zofran Inj) 4 mg Q6H PRN IV NAUSEA AND/OR VOMITING Last administered on 05/15/16t 15:38; Admin Dose 4 MG; Start 05/08/16 at 15:00 Pantoprazole (Protonix Iv) 40 mg BID@06,18 IV Last administered on 05/16/16 17 :12; Admin Dose 40 MG; Start 05/08/16 at 20:00 IV Flush 10 ml 10 ml PRN PRN IV IV PROTOCOL; Start 05/13/16 at 17:30 Total Parenteral Nutrition 1,000 ml @ 75 mls/hr [id number] IV Last administered on 05/16/16 20:11; Admin Dose 75 MLS/HR; Start 05/13/16 at 18:00 Fat Emulsion Intravenous (Liposyn Ii 20%) 250 ml @ 31 mls/hr DAILY@16 IV Last administered on 05/16/16 17:13; Admin Dose 31 MLS/HR; Start 05/13/16 at 18:00 Lorazepam (Ativan) 1 mg Q6H PRN IV ANXIETY Last administered on 05/14/16 22:43 ; Admin Dose 1 MG; Start 05/14/16 at 00:00 Diagnostic Test (Pha) (Accucheck) 1 ea Q6 XX Last administered on 05/16/16 17: 27; Admin Dose 1 EA; Start 05/15/16 at 00:00 Acetaminophen/ Hydrocodone Bitart ([place] (5/325)) 1 tab Q4H PRN PO PAIN LEVEL 4 -7; Start 05/15/16 at 15:00 Acetaminophen/ Hydrocodone Bitart ([place] (5/325)) 2 tab Q4H PRN PO PAIN LEVEL 7 -10; Start 05/15/16 at 15:00 Hydromorphone HCl (Dilaudid) 0.5 mg Q2 PRN IV PAIN; Start 05/15/16 at 15:00 Hydromorphone HCl (Dilaudid) 1 mg Q2 PRN IV PAIN; Start 05/15/16 at 15:00 Docusate Sodium (Colace) 100 mg BID PRN PO CONSTIPATION; Start 05/15/16 at 15: 00 Bisacodyl (Dulcolax Supp) 10 mg BID PRN [place] CONSTIPATION; Start 05/15/16 at 15: 00 Sodium Biphosphate/ Sodium Phosphate (Fleet Enema) 133 ml BID PRN IA CONSTIPATION; Start 05/15/16 at 15:00 Enoxaparin Sodium 40 mg 40 mg DAILY SC Last administered on 05/16/16 09:38; Admin Dose 40 MG; Start 05/16/16 at 09:00 Piperacillin Sod/ Tazobactam Sod (Zosyn 3.375gm/ 100 ml (Pmx)) 100 ml @ 200 mls /hr Q8 IVPB Last administered on 05/16/16 22:37; Admin Dose 200 MLS/HR; Start 05/15/16 at 15:00; Stop 05/17/16 at 20:00 Naloxone HCl (Narcan) 0.2 mg Q2M PRN IV RR 8 BREATHS/MIN OR LESS; Start at 15:00 Hydromorphone HCl (Dilaudid PRIMARY CARE PROVIDER) Q4PCA IV Last administered on 05/15/16 17:25 ; Admin Dose 6 MG; Start 05/15/16 at 15:00 DIANNA SCOTT MD May 16, 2016 22:51
[2016-05-17] VITALS (10 sets, daily range): BP systolic 81–105; BP diastolic 49–66; PULSE 75–89; RESP 15–18
[2016-05-17] MEDS: ACCU-CHEK XX SCH ×4 (00:14→18:21)
[2016-05-17] MEDS: PIPER-TAZO 3.375 GM IV (PMX) 100 ML IVPB SCH ×3 (06:24→18:15)
[2016-05-17] MEDS: PANTOPRAZOLE 40 MG INJ IV SCH ×2 (06:25→18:15)
[2016-05-17 06:27] LABS: ADD SCAN DIFF NO
[2016-05-17 06:49] LABS: BASOPHILS % 0.1 % (0.0-2.0); EOSINOPHILS % 0.2 % (0.0-7.0); HEMATOCRIT 27.7 % (42.0-52.0); HEMOGLOBIN 9.3 g/dl (14.0-18.0); LYMPHOCYTES # 0.8 10^3/ul (0.8-2.9); LYMPHOCYTES % 5.3 % (15.0-51.0); MEAN CORPUSCULAR HEMOGLOBIN 30.2 pg (29.0-33.0); MEAN CORPUSCULAR HGB CONC 33.6 g/dl (32.0-37.0); MEAN CORPUSCULAR VOLUME 89.9 fl (82.0-101.0); MEAN PLATELET VOLUME 11.3 fl (7.4-10.4); MONOCYTE # 0.6 10^3/ul (0.3-0.9); MONOCYTES % 4.3 % (0.0-11.0); NEUTROPHIL # 12.6 10^3/ul (1.6-7.5); NEUTROPHILS % 89.6 % (39.0-77.0); PLATELET COUNT 164 10^3/UL (140-415); RED BLOOD COUNT 3.08 10^6/ul (4.70-6.10); RED CELL DISTRIBUTION WIDTH 14.6 % (11.5-14.5); WHITE BLOOD COUNT 14.1 10^3/ul (4.8-10.8)
[2016-05-17 06:58] LABS: INR 1.33; PROTIME 16.6 Sec (12.2-14.2); PT RATIO 1.3
[2016-05-17 06:59] LABS: PARTIAL THROMBOPLASTIN TIME 37.1 Sec (25.0-35.0)
[2016-05-17 07:10] LABS: ALBUMIN 2.3 g/dl (3.3-4.9)
[2016-05-17 07:11] LABS: POTASSIUM 4.2 mmol/L (3.5-5.1)
[2016-05-17 07:13] LABS: BILIRUBIN,INDIRECT 0.1 mg/dl (0-1.1); BILIRUBIN,TOTAL 0.1 mg/dl (0.2-1.3); CREATININE 0.66 mg/dl (0.61-1.24); TOTAL PROTEIN 4.6 g/dl (6.1-8.1)
[2016-05-17 07:14] LABS: CALCIUM 7.8 mg/dl (8.4-10.2); MAGNESIUM 1.7 mg/dl (1.7-2.5); PHOSPHORUS 2.5 mg/dl (2.5-4.9)
[2016-05-17] MEDS: ENOXAPARIN 40 MG/0.4 ML SYG SC SCH (08:38)
--- NOTE | 2016-05-17 10:20 | PN ---
Date/Time of Note Date/Time of Note DATE: 05/16/16 TIME: 10:14 Assessment/Plan Lines/Catheters IV Catheter Type (from Nrs): PICC Line Alex in Place (from Nrs): No Assessment/Plan Assessment/Plan [facility] Progress Note (Late Entry) Date of Service: 05/14/16 Today's Impression & Plan: Overall stable without obvious post operative complication. WBC rise noted, but abd remains benign. No evidence for gastric dysfunction so far. Awaiting further return of bowel function. No cardiac issues. Ok to transfer out of ICU. With above assessment, I've recommended the following for today: 1. Transfer out of ICU to tele 2. Advance diet 3. Increase activity 4. Increase ICS 5. Cont TID wet to moist dressing changes 6. Labs in am 7. Cont Zosyn Thank you again for your great care of this very pleasant patient and wonderful family. If there are any questions, please feel free to call me at [phone]. TOTAL VISIT TIME: 20 minutes of which more than half was spent in [id number] discussion with the patient, possibly including family, as well as coordination of care between multiple physicians and providers. Disclaimer: Inadvertent spelling or grammatical errors are likely due to EHR/ dictation software use and do not reflect on the overall quality of patient care. Updated Clinical Summary: This is a very pleasant 60-year-old gentleman with comorbidity of previous history of gastric cancer status post resection in [facility] about 20 years ago and then recurrence in 2013 when the patient underwent endoscopic biopsy at [facility] in November of 2013. Then subsequently was transferred to [facility] where he underwent re-resection with RY anastomosis (also included partial resection of wall of transverse colon with repair. Final pathology: extensive poorly differentiated, minimally mucin producing 7.3 cm, G3 adenocarcinoma of the stomach extending focally to distal resected margin of specimen associated with duodenum (positive margin; R1 resection), - LV, - perineural invasion, 6/11 nodes positive, negative proximal margin, TNM stage: [id number], and Her2 status unknown. Readmitted one month after surgery where EGD 01/24/14 showed gastric outlet obstruction with edema and ulceration at the anastomosis, as well as LA class IV esophageal ulceration. He was subsequently treated with chemotherapy and radiation. The details are currently missing and we are in the process of obtaining those. He also has a BMI 19.0 mainly due to 10 to 20 year history of difficulty with eating. This history has worsened over the last 3 years. The patient has had multiple endoscopic evaluations at [facility] starting 03/2015, repeated 10/2015, repeated 01/2016 and then 04/03/2016. In all of these endoscopic evaluations, the patient was found to have narrowing of the gastric outlet anastomosis onto the small intestine. The attempts to dilate this area were unsuccessful where the scope could not be passed. Several biopsies on all of these endoscopic attempts were negative. Patient was admitted to [facility] on 05/08/2016 with nausea, vomiting and abdominal pain. Endoscopic evaluation was repeated and similar findings were found with inability to pass the scope. S/p a laparoscopic, converted to open, resection of old gastrojejunostomy with reconstruction with primary anastomosis with complication of perforation of gallbladder by trocar as well as enterotomy ( transverse colon) during entry through the midline fascia in to the abdominal cavity, with subsequent primary repair of enterotomy of the transverse colon, cholecystectomy, and lysis of adhesions (at least 90 minutes) and abdominal lavage on 05/15/16 with findings of anastomotic narrowing due to scar tissue and no obvious evidence of malignancy. Final path showed no evidence of malignancy. COMORBIDITIES: 1. History of gastric cancer status post resection in [facility] 20 years ago followed by re-resection at [facility] in 2013 and then treated with radiation and chemotherapy. (Details are missing). 2. History of gastric outlet obstruction with multiple endoscopic evaluations and at least in 2015 and 2016. Five endoscopic evaluations, none of which showed evidence of recurrence of cancer, but the patient was not able to be dilated due to the small pinhole opening that was connecting his stomach to his small intestine. 4. Every day smoker. 5. Esophageal ulcers noted on multiple endoscopic evaluations. 6. History of bilateral nonobstructing renal calculi. 7. History of right hydrocele. 8. Atherosclerotic vascular disease. 9. Anemia 10. Malnutrition 11. Hypothyroidism 12. Smoker 1ppd many decades 13. Father with lung cancer Subjective: No major events or complaints overnight; no major abd pain and under control with medications; no n/v/d; no sob or cp; - flatus; - BM; - activity Objective: Vitals: See below Exam: GENERAL: On exam, the patient was laying in bed and appeared to be comfortable and in no acute distress. ABDOMEN: Soft, nontender and nondistended. Incision dressings c/d/i w/o obvious underlying e/e/d/h. There are no peritoneal signs or guarding. SKIN: Skin appears to be pink and feels warm to touch. NEUROLOGIC: Patient is awake, alert, and follows commands appropriately. Exam/Review of Systems Vital Signs Vitals Vital Signs Date Time Temp Pulse Resp B/P Pulse Ox O2 Delivery O2 Flow Rate FiO2 05/17/16 08:18 86 05/17/16 06:36 98.0 18 96/62 96 05/16/16 21:00 Room Air Intake and Output 05/16/16 05/16/16 05/17/16 15:00 23:00 07:00 Intake Total 1854 ml 939 ml 1460 ml Output Total 1360 ml 720 ml 1350 ml Balance 494 ml 219 ml 110 ml Results Result Diagram: 05/17/16 0524 05/17/16 0524 SHANDRA KO M.D. May 17, 2016 10:20
--- NOTE | 2016-05-17 10:23 | PN ---
Date/Time of Note Date/Time of Note DATE: 05/17/16 TIME: 10:20 Assessment/Plan Lines/Catheters IV Catheter Type (from [facility]): PICC Line Alex in Place (from [facility]): No Assessment/Plan Assessment/Plan [facility] Progress Note Date of Service: 05/17/16 Today's Impression & Plan: Overall stable and improving. No obvious post operative complication. WBC lower today and abd remains benign. No evidence for gastric dysfunction so far. Awaiting further return of bowel function. No cardiac issues. Ok to transfer out of tele. Final path showed no evidence of malignancy (reviewed with patient) . With above assessment, I've recommended the following for today: 1. Transfer out of tele to regular floor 2. Advance diet 3. Increase activity 4. Increase ICS 5. Cont TID wet to moist dressing changes 6. Labs in am 7. Cont Zosyn one more day 8. Nutritional consult for malnutrition (need plan for inpatient and outpatient management) 9. PT for mobility eval and Tx Thank you again for your great care of this very pleasant patient and wonderful family. If there are any questions, please feel free to call me at [phone]. TOTAL VISIT TIME: 20 minutes of which more than half was spent in [id number] discussion with the patient, possibly including family, as well as coordination of care between multiple physicians and providers. Disclaimer: Inadvertent spelling or grammatical errors are likely due to EHR/ dictation software use and do not reflect on the overall quality of patient care. Updated Clinical Summary: This is a very pleasant 60-year-old gentleman with comorbidity of previous history of gastric cancer status post resection in [facility] about 20 years ago and then recurrence in 2013 when the patient underwent endoscopic biopsy at [facility] in November of 2013. Then subsequently was transferred to [facility] where he underwent re-resection with RY anastomosis (also included partial resection of wall of transverse colon with repair. Final pathology: extensive poorly differentiated, minimally mucin producing 7.3 cm, G3 adenocarcinoma of the stomach extending focally to distal resected margin of specimen associated with duodenum (positive margin; R1 resection), - LV, - perineural invasion, 6/11 nodes positive, negative proximal margin, TNM stage: [id number], and Her2 status unknown. Readmitted one month after surgery where EGD 01/24/14 showed gastric outlet obstruction with edema and ulceration at the anastomosis, as well as LA class IV esophageal ulceration. He was subsequently treated with chemotherapy and radiation. The details are currently missing and we are in the process of obtaining those. He also has a BMI 19.0 mainly due to 10 to 20 year history of difficulty with eating. This history has worsened over the last 3 years. The patient has had multiple endoscopic evaluations at [facility] starting 03/2015, repeated 10/2015, repeated 01/2016 and then 04/03/2016. In all of these endoscopic evaluations, the patient was found to have narrowing of the gastric outlet anastomosis onto the small intestine. The attempts to dilate this area were unsuccessful where the scope could not be passed. Several biopsies on all of these endoscopic attempts were negative. Patient was admitted to [facility] on 05/08/2016 with nausea, vomiting and abdominal pain. Endoscopic evaluation was repeated and similar findings were found with inability to pass the scope. S/p a laparoscopic, converted to open, resection of old gastrojejunostomy with reconstruction with primary anastomosis with complication of perforation of gallbladder by trocar as well as enterotomy ( transverse colon) during entry through the midline fascia in to the abdominal cavity, with subsequent primary repair of enterotomy of the transverse colon, cholecystectomy, and lysis of adhesions (at least 90 minutes) and abdominal lavage on 05/15/16 with findings of anastomotic narrowing due to scar tissue and no obvious evidence of malignancy. Final path showed no evidence of malignancy. COMORBIDITIES: 1. History of gastric cancer status post resection in [facility] 20 years ago followed by re-resection at [facility] in 2013 and then treated with radiation and chemotherapy. (Details are missing). 2. History of gastric outlet obstruction with multiple endoscopic evaluations and at least in 2015 and 2016. Five endoscopic evaluations, none of which showed evidence of recurrence of cancer, but the patient was not able to be dilated due to the small pinhole opening that was connecting his stomach to his small intestine. S/p a laparoscopic, converted to open, resection of old gastrojejunostomy with reconstruction with primary anastomosis with complication of perforation of gallbladder by trocar as well as enterotomy ( transverse colon) during entry through the midline fascia in to the abdominal cavity, with subsequent primary repair of enterotomy of the transverse colon, cholecystectomy, and lysis of adhesions (at least 90 minutes) and abdominal lavage on 05/15/16 with findings of anastomotic narrowing due to scar tissue and no obvious evidence of malignancy. Final path showed no evidence of malignancy. 4. Every day smoker. 5. Esophageal ulcers noted on multiple endoscopic evaluations. 6. History of bilateral nonobstructing renal calculi. 7. History of right hydrocele. 8. Atherosclerotic vascular disease. 9. Anemia 10. Malnutrition 11. Hypothyroidism 12. Smoker 1ppd many decades 13. Father with lung cancer Subjective: No major events or complaints overnight; no major abd pain and under control with medications; no n/v/d; no sob or cp; + flatus; + BM; minimal activity Objective: Vitals: See below Exam: GENERAL: On exam, the patient was laying in bed and appeared to be comfortable and in no acute distress. ABDOMEN: Soft, nontender and nondistended. Incision dressings d/c'd and incisions c/d/i w/o obvious e/e/d/h. There are no peritoneal signs or guarding. SKIN: Skin appears to be pink and feels warm to touch. NEUROLOGIC: Patient is awake, alert, and follows commands appropriately. Exam/Review of Systems Vital Signs Vitals Vital Signs Date Time Temp Pulse Resp B/P Pulse Ox O2 Delivery O2 Flow Rate FiO2 05/17/16 08:18 86 05/17/16 06:36 98.0 18 96/62 96 05/16/16 21:00 Room Air Intake and Output 05/16/16 05/16/16 05/17/16 15:00 23:00 07:00 Intake Total 1854 ml 939 ml 1460 ml Output Total 1360 ml 720 ml 1350 ml Balance 494 ml 219 ml 110 ml Results Result Diagram: 05/17/16 0524 05/17/16 0524 SHANDRA KO M.D. May 17, 2016 10:23
[2016-05-17] MEDS: HYDROmorphONE 0.2 MG/ML PCA IV SCH (11:18)
--- NOTE | 2016-05-17 12:02 | PN ---
Date/Time of Note Date/Time of Note DATE: 05/17/16 TIME: 12:01 Assessment/Plan VTE Prophylaxis VTE Prophylaxis Intervention: other Lines/Catheters IV C[facility]ter Type (from [facility]): PICC Line Central line still needed: Yes Urinary Cath still in place: No Assessment/Plan Chief Complaint/Hosp Course - Gastric outlet obstructive obstruction, status post EGD. Dr. Landeros who is covering for Dr. Gallego is following in gastroenterology consultation. Dr. Mar is following patient in general surgery consultation. Continue patient n.p.o., NG tube to low wall suctioning. Continue TPN and lipids Dr. Gongora is following patient in for cardiology consultation, cleared for surgery. - S/p surgery for severe anastomosis stenosis. Low nue TPN, advance diet per surgery. Continue IS Q1 hr while awake. - Gastrics cancer status post surgery 2-1/2 years ago, status post chemotherapy and radiation. Patient was followed as an outpatient by Dr. Lou in radiation oncology and Dr. Lawrence oncology. Dr. Iglesias is following in hematology/ oncology consultation. -Tobacco dependence. Tobacco cessation is strongly advised. Problems: Subjective 24 Hr Interval Summary Free Text/Dictation Patient has no complaints Exam/Review of Systems Vital Signs Vitals Vital Signs Date Time Temp Pulse Resp B/P Pulse Ox O2 Delivery O2 Flow Rate FiO2 05/17/16 11:36 98.1 83 18 81/49 97 05/16/16 21:00 Room Air Intake and Output 05/16/16 05/16/16 05/17/16 15:00 23:00 07:00 Intake Total 1854 ml 939 ml 1460 ml Output Total 1360 ml 720 ml 1350 ml Balance 494 ml 219 ml 110 ml Exam Constitutional: well developed Head: atraumatic, normocephalic Neck: supple Respiratory: diminished breath sounds Cardiovascular: regular rate and rhythm Gastrointestinal: non-tender, soft Extremities: normal pulses Results Result Diagram: 05/17/16 0524 05/17/16 0524 Results 24 hrs Laboratory Tests Test 05/16/16 12:09 05/16/16 17:21 05/17/16 00:10 05/17/16 05:24 Bedside Glucose 129 96 123 Activated Partial Thromboplast Time 37.1 H Alanine Aminotransferase (ALT/SGPT) 32 Albumin 2.3 L Albumin/Globulin Ratio 1.00 Alkaline Phosphatase 185 H Anion Gap 12 Aspartate Amino Transf (AST/SGOT) 17 # B-Type Natriuretic Peptide 178 H Basophils # 0.0 Basophils % 0.1 Blood Urea Nitrogen 15 Calcium Level 7.8 L Carbon Dioxide Level 25 Chloride Level 101 Creatinine 0.66 Direct Bilirubin 0.00 Eosinophils # 0.0 Eosinophils % 0.2 Globulin 2.30 Glucose Level 100 # Hematocrit 27.7 L Hemoglobin 9.3 L INR International Normalized Ratio 1.33 Indirect Bilirubin 0.1 Lymphocytes # 0.8 Lymphocytes % 5.3 L Magnesium Level 1.7 Mean Corpuscular Hemoglobin 30.2 Mean Corpuscular Hemoglobin Concent 33.6 Mean Corpuscular Volume 89.9 Mean Platelet Volume 11.3 H Monocytes # 0.6 Monocytes % 4.3 Neutrophils # 12.6 H Neutrophils % 89.6 H Nucleated Red Blood Cells # 0.0 Nucleated Red Blood Cells % 0.0 Phosphorus Level 2.5 Platelet Count 164 Potassium Level 4.2 Prothrombin Time 16.6 H Prothrombin Time Ratio 1.3 Red Blood Count 3.08 L Red Cell Distribution Width 14.6 H Sodium Level 134 L Total Bilirubin 0.1 L Total Protein 4.6 L White Blood Count 14.1 H Test 05/17/16 05:29 05/17/16 06:23 Lactic Acid Level 0.9 Bedside Glucose 124 Medications Medications Current Medications Ondansetron HCl (Zofran Inj) 4 mg Q6H PRN IV NAUSEA AND/OR VOMITING Last administered on 05/15/16 15:38; Admin Dose 4 MG; Start 05/08/16 at 15:00 Pantoprazole (Protonix Iv) 40 mg BID@06,18 IV Last administered on 05/17/16 06 :25; Admin Dose 40 MG; Start 05/08/16 at 20:00 IV Flush 10 ml 10 ml PRN PRN IV IV PROTOCOL; Start 05/13/16 at 17:30 Total Parenteral Nutrition 1,000 ml @ 75 mls/hr [id number] IV Last administered on 05/16/16 20:11; Admin Dose 75 MLS/HR; Start 05/13/16 at 18:00 Fat Emulsion Intravenous (Liposyn Ii 20%) 250 ml @ 31 mls/hr DAILY@16 IV Last administered on 05/16/16 17:13; Admin Dose 31 MLS/HR; Start 05/13/16 at 18:00 Lorazepam (Ativan) 1 mg Q6H PRN IV ANXIETY Last administered on 05/14/16 22:43 ; Admin Dose 1 MG; Start 05/14/16 at 00:00 Diagnostic Test (Pha) (Accucheck) 1 ea Q6 XX Last administered on 05/17/16 06: 25; Admin Dose 1 EA; Start 05/15/16 at 00:00 Acetaminophen/ Hydrocodone Bitart ([place] (5/325)) 1 tab Q4H PRN PO PAIN LEVEL 4 -7; Start 05/15/16 at 15:00 Acetaminophen/ Hydrocodone Bitart ([place] (5/325)) 2 tab Q4H PRN PO PAIN LEVEL 7 -10; Start 05/15/16 at 15:00 Hydromorphone HCl (Dilaudid) 0.5 mg Q2 PRN IV PAIN; Start 05/15/16 at 15:00 Hydromorphone HCl (Dilaudid) 1 mg Q2 PRN IV PAIN; Start 05/15/16 at 15:00 Docusate Sodium (Colace) 100 mg BID PRN PO CONSTIPATION; Start 05/15/16 at 15: 00 Bisacodyl (Dulcolax Supp) 10 mg BID PRN [place] CONSTIPATION; Start 05/15/16 at 15: 00 Sodium Biphosphate/ Sodium Phosphate (Fleet Enema) 133 ml BID PRN [place] CONSTIPATION; Start 05/15/16 at 15:00 Enoxaparin Sodium (Lovenox) 40 mg DAILY SC Last administered on 05/17/16 08:38 ; Admin Dose 40 MG; Start 05/16/16 at 09:00 Naloxone HCl (Narcan) 0.2 mg Q2M PRN IV RR 8 BREATHS/MIN OR LESS; Start at 15:00 Hydromorphone HCl Q4PCA IV Last administered on 05/17/16 11:18; Admin Dose 6 MG; Start 05/15/16 at 15:00 Piperacillin Sod/ Tazobactam Sod (Zosyn 3.375gm/ 100 ml (Pmx)) 100 ml @ 200 mls /hr Q6 IVPB Last administered on 05/17/16 11:55; Admin Dose 200 MLS/HR; Start 05/17/16 at 12:00; Stop 05/18/16 at 18:00 ROLANDO RICH May 17, 2016 12:01
--- NOTE | 2016-05-17 13:15 | CONS ---
Date/Time of Note Date/Time of Note DATE: 05/17/16 TIME: 13:13 Assessment/Plan Assessment/Plan Additional Assessment/Plan 1. Preoperative evaluation prior to surgery for gastric outlet obstruction.- NO cardiac contraindication to proceeding with surgery at this time at moderate risk. Check post-op ECG and follow for s/s/x of CV complications post- operatively - stable - rate controlled now 2. Abnormal electrocardiogram with T-wave flattening in aVL.-negative troponin x 2 3. Diastolic dysfunction by 2-D echo done this admission- euvolemic by exam, chronic. 4. Hypertension, labile with borderline hypotension- WELL RX currently. 5. Gastric outlet obstruction- GI team follows. 6. Nausea, vomiting secondary to gastric outlet obstruction. 7. Weight loss secondary to gastric outlet obstruction. 8. Recent cessation of tobacco usage. Consultation Date/Type/Reason Admit Date/Time May 08, 2016 at 13:19 Initial Consult Date 05/08/16 Referring Provider: SOFIA SHAFFER MD 24 HR Interval Summary Free Text/Dictation NO acute events. Stable BP - no CP noted. ROS: No fever, no chills, no nausea, no vomiting, no diarrhea/constipation No recent weight changes No chest pain, no PND, no orthopnea No dizziness, blurred vision No thirst, no heat or cold intolerance Exam/Review of Systems Vital Signs Vitals Vital Signs Date Time Temp Pulse Resp B/P Pulse Ox O2 Delivery O2 Flow Rate FiO2 05/17/16 12:13 82 05/17/16 11:36 98.1 18 81/49 97 05/16/16 21:00 Room Air Intake and Output 05/16/16 05/16/16 05/17/16 15:00 23:00 07:00 Intake Total 1854 ml 939 ml 1460 ml Output Total 1360 ml 720 ml 1350 ml Balance 494 ml 219 ml 110 ml Exam General: WN/WD/NAD, AOx 3 HEENT: Unicetric/atraumatic/EOMI (follow commands) NECK: JVD elevated, no thyromegaly Lymph: no lymphadenopathy HEART: regular with no S3, II/ systolic murmur at apex LUNGS: Coarse sounds ABD: soft, NT, ND, +BS - post Rx : Intact Neuro: non focal SKIN: chronic changes EXT: trace edema Results Result Diagram: 05/17/16 0524 05/17/16 0524 Results 24 hrs Laboratory Tests Test 05/16/16 17:21 05/17/16 00:10 05/17/16 05:24 05/17/16 05:29 Bedside Glucose 96 123 Activated Partial Thromboplast Time 37.1 H Alanine Aminotransferase (ALT/SGPT) 32 Albumin 2.3 L Albumin/Globulin Ratio 1.00 Alkaline Phosphatase 185 H Anion Gap 12 Aspartate Amino Transf (AST/SGOT) 17 # B-Type Natriuretic Peptide 178 H Basophils # 0.0 Basophils % 0.1 Blood Urea Nitrogen 15 Calcium Level 7.8 L Carbon Dioxide Level 25 Chloride Level 101 Creatinine 0.66 Direct Bilirubin 0.00 Eosinophils # 0.0 Eosinophils % 0.2 Globulin 2.30 Glucose Level 100 # Hematocrit 27.7 L Hemoglobin 9.3 L INR International Normalized Ratio 1.33 Indirect Bilirubin 0.1 Lymphocytes # 0.8 Lymphocytes % 5.3 L Magnesium Level 1.7 Mean Corpuscular Hemoglobin 30.2 Mean Corpuscular Hemoglobin Concent 33.6 Mean Corpuscular Volume 89.9 Mean Platelet Volume 11.3 H Monocytes # 0.6 Monocytes % 4.3 Neutrophils # 12.6 H Neutrophils % 89.6 H Nucleated Red Blood Cells # 0.0 Nucleated Red Blood Cells % 0.0 Phosphorus Level 2.5 Platelet Count 164 Potassium Level 4.2 Prothrombin Time 16.6 H Prothrombin Time Ratio 1.3 Red Blood Count 3.08 L Red Cell Distribution Width 14.6 H Sodium Level 134 L Total Bilirubin 0.1 L Total Protein 4.6 L White Blood Count 14.1 H Lactic Acid Level 0.9 Test 05/17/16 06:23 05/17/16 12:17 Bedside Glucose 124 91 Medications Medications Current Medications Ondansetron HCl (Zofran Inj) 4 mg Q6H PRN IV NAUSEA AND/OR VOMITING Last administered on 05/15/16 15:38; Admin Dose 4 MG; Start 05/08/16 at 15:00 Pantoprazole (Protonix Iv) 40 mg BID@06,18 IV Last administered on 05/17/16 06 :25; Admin Dose 40 MG; Start 05/08/16 at 20:00 IV Flush 10 ml 10 ml PRN PRN IV IV PROTOCOL; Start 05/13/16 at 17:30 Total Parenteral Nutrition 1,000 ml @ 75 mls/hr [id number] IV Last administered on 05/16/16 20:11; Admin Dose 75 MLS/HR; Start 05/13/16 at 18:00 Fat Emulsion Intravenous (Liposyn Ii 20%) 250 ml @ 31 mls/hr DAILY@16 IV Last administered on 05/16/16 17:13; Admin Dose 31 MLS/HR; Start 05/13/16 at 18:00 Lorazepam (Ativan) 1 mg Q6H PRN IV ANXIETY Last administered on 05/14/16 22:43 ; Admin Dose 1 MG; Start 05/14/16 at 00:00 Diagnostic Test (Pha) (Accucheck) 1 ea Q6 XX Last administered on 05/17/16 12: 39; Admin Dose 1 EA; Start 05/15/16 at 00:00 Acetaminophen/ Hydrocodone Bitart ([place] (5/325)) 1 tab Q4H PRN PO PAIN LEVEL 4 -7; Start 05/15/16 at 15:00 Acetaminophen/ Hydrocodone Bitart ([place] (5/325)) 2 tab Q4H PRN PO PAIN LEVEL 7 -10; Start 05/15/16 at 15:00 Hydromorphone HCl (Dilaudid) 0.5 mg Q2 PRN IV PAIN; Start 05/15/16 at 15:00 Hydromorphone HCl (Dilaudid) 1 mg Q2 PRN IV PAIN; Start 05/15/16 at 15:00 Docusate Sodium (Colace) 100 mg BID PRN PO CONSTIPATION; Start 05/15/16 at 15: 00 Bisacodyl (Dulcolax Supp) 10 mg BID PRN [place] CONSTIPATION; Start 05/15/16 at 15: 00 Sodium Biphosphate/ Sodium Phosphate (Fleet Enema) 133 ml BID PRN [place] CONSTIPATION; Start 05/15/16 at 15:00 Enoxaparin Sodium (Lovenox) 40 mg DAILY SC Last administered on 05/17/16 08:38 ; Admin Dose 40 MG; Start 05/16/16 at 09:00 Naloxone HCl (Narcan) 0.2 mg Q2M PRN IV RR 8 BREATHS/MIN OR LESS; Start at 15:00 Hydromorphone HCl Q4PCA IV Last administered on 05/17/16 11:18; Admin Dose 6 MG; Start 05/15/16 at 15:00 Piperacillin Sod/ Tazobactam Sod (Zosyn 3.375gm/ 100 ml (Pmx)) 100 ml @ 200 mls /hr Q6 IVPB Last administered on 05/17/16t 11:55; Admin Dose 200 MLS/HR; Start 05/17/16 at 12:00; Stop 05/18/16 at 18:00 RADHA CARRINGTON MD May 17, 2016 13:14
[2016-05-17] MEDS: TPN 1,000 ML IV SCH (14:42)
[2016-05-17] MEDS: FAT EMULSION 20% 250 ML IV SCH (16:19)
--- NOTE | 2016-05-17 17:01 | CONS ---
Date/Time of Note Date/Time of Note DATE: 05/17/16 TIME: 17:00 Assessment/Plan Assessment/Plan Additional Assessment/Plan Additional Assessment/Plan IMPRESSION: 1. Status post surgery for severe anastomotic stenosis.doing better 2. Status post cholecystectomy. 3. Status post closure of the enterotomy. 4. History of stomach cancer. 5. Nicotine usage 6. Rt. hydrocele Plan advance diet continue present care review path when available,no evidence of malignancy Consultation Date/Type/Reason Admit Date/Time May 08, 2016 at 13:19 Initial Consult Date 05/08/16 Referring Provider: SOFIA SHAFFER MD 24 HR Interval Summary Constitutional: improved, no complaints Exam/Review of Systems Vital Signs Vitals Vital Signs Date Time Temp Pulse Resp B/P Pulse Ox O2 Delivery O2 Flow Rate FiO2 05/17/16 14:42 98.0 75 15 93/64 99 Room Air Intake and Output 05/16/16 05/16/16 05/17/16 15:00 23:00 07:00 Intake Total 1854 ml 939 ml 1460 ml Output Total 1360 ml 720 ml 1350 ml Balance 494 ml 219 ml 110 ml Exam Constitutional: alert, oriented, well developed Psych: nl mood/affect, no complaints Head: atraumatic, normocephalic Eyes: EOMI, PERRL, nl conjunctiva, nl lids, nl sclera ENMT: nl external ears & nose, nl lips & teeth, nl nasal mucosa & septum Neck: non-tender, supple Respiratory: clear to auscultation, normal air movement Cardiovascular: nl pulses, regular rate and rhythm Gastrointestinal: nl liver, spleen, non-tender, soft Musculoskeletal: nl extremities to inspection, nl gait and stance Extremities: normal pulses Neurological: AUTOMATION TECH II-XII intact, nl mental status, nl speech, nl strength Skin: nl turgor, No rash or lesions Lymph: nl lymph nodes Results Result Diagram: 05/17/1652305/17/16 0524 Results 24 hrs Laboratory Tests Test 05/16/16 17:21 05/17/16 00:10 05/17/16 05:24 05/17/16 05:29 Bedside Glucose 96 123 Activated Partial Thromboplast Time 37.1 H Alanine Aminotransferase (ALT/SGPT) 32 Albumin 2.3 L Albumin/Globulin Ratio 1.00 Alkaline Phosphatase 185 H Anion Gap 12 Aspartate Amino Transf (AST/SGOT) 17 # B-Type Natriuretic Peptide 178 H Basophils # 0.0 Basophils % 0.1 Blood Urea Nitrogen 15 Calcium Level 7.8 L Carbon Dioxide Level 25 Chloride Level 101 Creatinine 0.66 Direct Bilirubin 0.00 Eosinophils # 0.0 Eosinophils % 0.2 Globulin 2.30 Glucose Level 100 # Hematocrit 27.7 L Hemoglobin 9.3 L INR International Normalized Ratio 1.33 Indirect Bilirubin 0.1 Lymphocytes # 0.8 Lymphocytes % 5.3 L Magnesium Level 1.7 Mean Corpuscular Hemoglobin 30.2 Mean Corpuscular Hemoglobin Concent 33.6 Mean Corpuscular Volume 89.9 Mean Platelet Volume 11.3 H Monocytes # 0.6 Monocytes % 4.3 Neutrophils # 12.6 H Neutrophils % 89.6 H Nucleated Red Blood Cells # 0.0 Nucleated Red Blood Cells % 0.0 Phosphorus Level 2.5 Platelet Count 164 Potassium Level 4.2 Prothrombin Time 16.6 H Prothrombin Time Ratio 1.3 Red Blood Count 3.08 L Red Cell Distribution Width 14.6 H Sodium Level 134 L Total Bilirubin 0.1 L Total Protein 4.6 L White Blood Count 14.1 H Lactic Acid Level 0.9 Test 05/17/16 06:23 05/17/16 12:17 Bedside Glucose 124 91 Medications Medications Current Medications Ondansetron HCl (Zofran Inj) 4 mg Q6H PRN IV NAUSEA AND/OR VOMITING Last administered on 05/15/16 15:38; Admin Dose 4 MG; Start 05/08/16 at 15:00 Pantoprazole (Protonix Iv) 40 mg BID@06,18 IV Last administered on 05/17/16 06 :25; Admin Dose 40 MG; Start 05/08/16 at 20:00 IV Flush 10 ml 10 ml PRN PRN IV IV PROTOCOL; Start 05/13/16 at 17:30 Total Parenteral Nutrition 1,000 ml @ 75 mls/hr [id number] IV Last administered on 05/17/16 14:42; Admin Dose 75 MLS/HR; Start 05/13/16 at 18:00 Fat Emulsion Intravenous (Liposyn Ii 20%) 250 ml @ 31 mls/hr DAILY@16 IV Last administered on 05/17/16 16:19; Admin Dose 31 MLS/HR; Start 05/13/16 at 18:00 Lorazepam (Ativan) 1 mg Q6H PRN IV ANXIETY Last administered on 05/14/16 22:43 ; Admin Dose 1 MG; Start 05/14/16 at 00:00 Diagnostic Test (Pha) (Accucheck) 1 ea Q6 XX Last administered on 05/17/16 12: 39; Admin Dose 1 EA; Start 05/15/16 at 00:00 Acetaminophen/ Hydrocodone Bitart ([place] (5/325)) 1 tab Q4H PRN PO PAIN LEVEL 4 -7; Start 05/15/16 at 15:00 Acetaminophen/ Hydrocodone Bitart ([place] (5/325)) 2 tab Q4H PRN PO PAIN LEVEL 7 -10; Start 05/15/16 at 15:00 Hydromorphone HCl (Dilaudid) 0.5 mg Q2 PRN IV PAIN; Start 05/15/16 at 15:00 Hydromorphone HCl (Dilaudid) 1 mg Q2 PRN IV PAIN; Start 05/15/16 at 15:00 Docusate Sodium (Colace) 100 mg BID PRN PO CONSTIPATION; Start 05/15/16 at 15: 00 Bisacodyl (Dulcolax Supp) 10 mg BID PRN [place] CONSTIPATION; Start 05/15/16 at 15: 00 Sodium Biphosphate/ Sodium Phosphate (Fleet Enema) 133 ml BID PRN [place] CONSTIPATION; Start 05/15/16 at 15:00 Enoxaparin Sodium (Lovenox) 40 mg DAILY SC Last administered on 05/17/16 08:38 ; Admin Dose 40 MG; Start 05/16/16 at 09:00 Naloxone HCl (Narcan) 0.2 mg Q2M PRN IV RR 8 BREATHS/MIN OR LESS; Start at 15:00 Hydromorphone HCl Q4PCA IV Last administered on 05/17/16 11:18; Admin Dose 6 MG; Start 05/15/16 at 15:00 Piperacillin Sod/ Tazobactam Sod (Zosyn 3.375gm/ 100 ml (Pmx)) 100 ml @ 200 mls /hr Q6 IVPB Last administered on 05/17/16 11:55; Admin Dose 200 MLS/HR; Start 05/17/16 at 12:00; Stop 05/18/16 at 18:00 INA TOVAR MD May 17, 2016 17:01
--- NOTE | 2016-05-17 21:15 | CONS ---
Date/Time of Note Date/Time of Note DATE: 05/17/16 TIME: 21:13 Assessment/Plan Assessment/Plan Chief Complaint/Hosp Course HX GASTRIC CANCER SP Stomach surgery sec to stomach cancer - s/p RNY surgery PER DR VALENTINE NOTE- History of gastric cancer status post resection in [facility] 20 years ago followed by re-resection at [facility] in 2013 and then treated with radiation and chemotherapy. (Details are missing) . History of gastric outlet obstruction with multiple endoscopic evaluations and at least in 2015 and 2016. Five endoscopic evaluations, none of which showed evidence of recurrence of cancer , but the patient was not able to be dilated due to the small pinhole opening that was connecting his stomach to his small intestine. -Gastric outflow obstruction with Intractable vomiting with nausea 2/2 high grade gastric outlet obstruction - Zofran ENDOSCOPY- NOTED POST OP Final path showed no evidence of malignancy (reviewed with patient). esophagitis Small bilateral nonobstructing renal calculi. Atherosclerotic vascular disease. Smoker- Current every day smoker(1-2 TIMES PER WEEK, CIGARETTES) Right hydrocele. - Urology consult appreciated- Dr Lozada notified Small bilateral nonobstructing renal calculi. - per Urology Atherosclerotic vascular disease. Hx Esophagitis SCDs for DVT prophylaxis Protonix for GI prophylaxis Problems: Consultation Date/Type/Reason Admit Date/Time May 08, 2016 at 13:19 Initial Consult Date 05/08/16 Referring Provider: SOFIA SHAFFER MD 24 HR Interval Summary Free Text/Dictation all noted stable postop Exam/Review of Systems Vital Signs Vitals Vital Signs Date Time Temp Pulse Resp B/P Pulse Ox O2 Delivery O2 Flow Rate FiO2 05/17/16 19:06 99.0 80 18 95/53 98 05/17/16 14:42 Room Air Intake and Output 05/16/16 05/16/16 05/17/16 15:00 23:00 07:00 Intake Total 1854 ml 939 ml 1460 ml Output Total 1360 ml 720 ml 1350 ml Balance 494 ml 219 ml 110 ml Exam General: WN/WD/NAD, AOx 3 HEENT: Unicetric/atraumatic/EOMI (follow commands) NECK: JVD elevated, no thyromegaly Lymph: no lymphadenopathy HEART: regular with no S3, II/ systolic murmur at apex LUNGS: Coarse sounds ABD: soft, NT, ND, +BS - post Rx : Intact Neuro: non focal SKIN: chronic changes EXT: trace edema Results Result Diagram: 05/17/16 0524 05/17/16 0524 Results 24 hrs Laboratory Tests Test 05/17/16 00:10 05/17/16 05:24 05/17/16 05:29 05/17/16 06:23 Bedside Glucose 123 124 Activated Partial Thromboplast Time 37.1 H Alanine Aminotransferase (ALT/SGPT) 32 Albumin 2.3 L Albumin/Globulin Ratio 1.00 Alkaline Phosphatase 185 H Anion Gap 12 Aspartate Amino Transf (AST/SGOT) 17 # B-Type Natriuretic Peptide 178 H Basophils # 0.0 Basophils % 0.1 Blood Urea Nitrogen 15 Calcium Level 7.8 L Carbon Dioxide Level 25 Chloride Level 101 Creatinine 0.66 Direct Bilirubin 0.00 Eosinophils # 0.0 Eosinophils % 0.2 Globulin 2.30 Glucose Level 100 # Hematocrit 27.7 L Hemoglobin 9.3 L INR International Normalized Ratio 1.33 Indirect Bilirubin 0.1 Lymphocytes # 0.8 Lymphocytes % 5.3 L Magnesium Level 1.7 Mean Corpuscular Hemoglobin 30.2 Mean Corpuscular Hemoglobin Concent 33.6 Mean Corpuscular Volume 89.9 Mean Platelet Volume 11.3 H Monocytes # 0.6 Monocytes % 4.3 Neutrophils # 12.6 H Neutrophils % 89.6 H Nucleated Red Blood Cells # 0.0 Nucleated Red Blood Cells % 0.0 Phosphorus Level 2.5 Platelet Count 164 Potassium Level 4.2 Prothrombin Time 16.6 H Prothrombin Time Ratio 1.3 Red Blood Count 3.08 L Red Cell Distribution Width 14.6 H Sodium Level 134 L Total Bilirubin 0.1 L Total Protein 4.6 L White Blood Count 14.1 H Lactic Acid Level 0.9 Test 05/17/16 12:17 05/17/16 18:23 Bedside Glucose 91 105 Medications Medications Current Medications Ondansetron HCl (Zofran Inj) 4 mg Q6H PRN IV NAUSEA AND/OR VOMITING Last administered on 05/15/16 15:38; Admin Dose 4 MG; Start 05/08/16 at 15:00 Pantoprazole (Protonix Iv) 40 mg BID@06,18 IV Last administered on 05/17/16 18 :15; Admin Dose 40 MG; Start 05/08/16 at 20:00 IV Flush 10 ml 10 ml PRN PRN IV IV PROTOCOL; Start 05/13/16 at 17:30 Total Parenteral Nutrition 1,000 ml @ 75 mls/hr [id number] IV Last administered on 05/17/16 14:42; Admin Dose 75 MLS/HR; Start 05/13/16 at 18:00 Fat Emulsion Intravenous (Liposyn Ii 20%) 250 ml @ 31 mls/hr DAILY@16 IV Last administered on 05/17/16 16:19; Admin Dose 31 MLS/HR; Start 05/13/16 at 18:00 Lorazepam (Ativan) 1 mg Q6H PRN IV ANXIETY Last administered on 05/14/16 22:43 ; Admin Dose 1 MG; Start 05/14/16 at 00:00 Diagnostic Test (Pha) (Accucheck) 1 ea Q6 XX Last administered on 05/17/16 18: 21; Admin Dose 1 EA; Start 05/15/16 at 00:00 Acetaminophen/ Hydrocodone Bitart ([place] (5/325)) 1 tab Q4H PRN PO PAIN LEVEL 4 -7; Start 05/15/16 at 15:00 Acetaminophen/ Hydrocodone Bitart ([place] (5/325)) 2 tab Q4H PRN PO PAIN LEVEL 7 -10; Start 05/15/16 at 15:00 Hydromorphone HCl (Dilaudid) 0.5 mg Q2 PRN IV PAIN; Start 05/15/16 at 15:00 Hydromorphone HCl (Dilaudid) 1 mg Q2 PRN IV PAIN; Start 05/15/16 at 15:00 Docusate Sodium (Colace) 100 mg BID PRN PO CONSTIPATION; Start 05/15/16 at 15: 00 Bisacodyl (Dulcolax Supp) 10 mg BID PRN [place] CONSTIPATION; Start 05/15/16 at 15: 00 Sodium Biphosphate/ Sodium Phosphate (Fleet Enema) 133 ml BID PRN [place] CONSTIPATION; Start 05/15/16 at 15:00 Enoxaparin Sodium (Lovenox) 40 mg DAILY SC Last administered on 05/17/16 08:38 ; Admin Dose 40 MG; Start 05/16/16 at 09:00 Naloxone HCl (Narcan) 0.2 mg Q2M PRN IV RR 8 BREATHS/MIN OR LESS; Start at 15:00 Hydromorphone HCl Q4PCA IV Last administered on 05/17/16 11:18; Admin Dose 6 MG; Start 05/15/16 at 15:00 Piperacillin Sod/ Tazobactam Sod (Zosyn 3.375gm/ 100 ml (Pmx)) 100 ml @ 200 mls /hr Q6 IVPB Last administered on 05/17/16 18:15; Admin Dose 200 MLS/HR; Start 05/17/16 at 12:00; Stop 05/18/16 at 18:00 DIANNA SCOTT MD May 17, 2016 21:15
[2016-05-18] VITALS (7 sets, daily range): BP systolic 94–106; BP diastolic 53–62; PULSE 70–82; RESP 14–20
[2016-05-18] MEDS: PIPER-TAZO 3.375 GM IV (PMX) 100 ML IVPB SCH ×4 (00:34→18:24)
[2016-05-18] MEDS: TPN 1,000 ML IV SCH ×2 (04:41→18:24)
[2016-05-18 05:20] LABS: ADD SCAN DIFF NO
[2016-05-18 05:30] LABS: BASOPHILS % 0.1 % (0.0-2.0); EOSINOPHILS # 0.1 10^3/ul (0.0-0.5); EOSINOPHILS % 0.8 % (0.0-7.0); HEMATOCRIT 25.9 % (42.0-52.0); HEMOGLOBIN 8.5 g/dl (14.0-18.0); LYMPHOCYTES # 0.6 10^3/ul (0.8-2.9); LYMPHOCYTES % 7.1 % (15.0-51.0); MEAN CORPUSCULAR HEMOGLOBIN 29.9 pg (29.0-33.0); MEAN CORPUSCULAR HGB CONC 32.8 g/dl (32.0-37.0); MEAN CORPUSCULAR VOLUME 91.2 fl (82.0-101.0); MEAN PLATELET VOLUME 10.8 fl (7.4-10.4); MONOCYTE # 0.4 10^3/ul (0.3-0.9); NEUTROPHIL # 7.6 10^3/ul (1.6-7.5); NEUTROPHILS % 87.5 % (39.0-77.0); PLATELET COUNT 173 10^3/UL (140-415); RED BLOOD COUNT 2.84 10^6/ul (4.70-6.10); RED CELL DISTRIBUTION WIDTH 14.4 % (11.5-14.5); WHITE BLOOD COUNT 8.7 10^3/ul (4.8-10.8)
[2016-05-18] MEDS: PANTOPRAZOLE 40 MG INJ IV SCH ×2 (05:32→18:24)
[2016-05-18 05:41] LABS: POTASSIUM 3.9 mmol/L (3.5-5.1)
[2016-05-18 05:43] LABS: CREATININE 0.67 mg/dl (0.61-1.24)
[2016-05-18 05:44] LABS: INR 1.29; PHOSPHORUS 3.3 mg/dl (2.5-4.9); PROTIME 16.2 Sec (12.2-14.2); PT RATIO 1.3
[2016-05-18 05:45] LABS: MAGNESIUM 1.7 mg/dl (1.7-2.5)
[2016-05-18 05:55] LABS: PARTIAL THROMBOPLASTIN TIME 38.2 Sec (25.0-35.0)
[2016-05-18] MEDS: ACCU-CHEK XX SCH ×4 (06:00→17:54)
[2016-05-18] MEDS: HYDROmorphONE 0.2 MG/ML PCA IV SCH (07:16)
[2016-05-18] MEDS: ENOXAPARIN 40 MG/0.4 ML SYG SC SCH (08:33)
--- NOTE | 2016-05-18 09:29 | CONS ---
Date/Time of Note Date/Time of Note DATE: 05/18/16 TIME: 09:29 Assessment/Plan Assessment/Plan Chief Complaint/Hosp Course HX GASTRIC CANCER SP Stomach surgery sec to stomach cancer - s/p RNY surgery PER DR VLAENTINE NOTE- History of gastric cancer status post resection in [facility] 20 years ago followed by re-resection at [facility] in 2013 and then treated with radiation and chemotherapy. (Details are missing) . History of gastric outlet obstruction with multiple endoscopic evaluations and at least in 2015 and 2016. Five endoscopic evaluations, none of which showed evidence of recurrence of cancer , but the patient was not able to be dilated due to the small pinhole opening that was connecting his stomach to his small intestine. -Gastric outflow obstruction with Intractable vomiting with nausea 2/2 high grade gastric outlet obstruction - Zofran ENDOSCOPY- NOTED POST OP Final path showed no evidence of malignancy (reviewed with patient). cont postop care esophagitis Small bilateral nonobstructing renal calculi. Atherosclerotic vascular disease. Smoker- Current every day smoker(1-2 TIMES PER WEEK, CIGARETTES) Right hydrocele. - Urology consult appreciated- Dr Lozada notified Small bilateral nonobstructing renal calculi. - per Urology Atherosclerotic vascular disease. Hx Esophagitis SCDs for DVT prophylaxis Protonix for GI prophylaxis Problems: Consultation Date/Type/Reason Admit Date/Time May 08, 2016 at 13:19 Initial Consult Date 05/08/16 Type of Consultation: hemeon Reason for Consultation gastric cancer Referring Provider: SOFIA SHAFFER MD 24 HR Interval Summary Free Text/Dictation slowly improving Exam/Review of Systems Vital Signs Vitals Vital Signs Date Time Temp Pulse Resp B/P Pulse Ox O2 Delivery O2 Flow Rate FiO2 05/18/16 08:55 98.8 76 20 95/61 98 05/18/16 05:00 Room Air Intake and Output 05/17/16 05/17/16 05/18/16 15:00 23:00 07:00 Intake Total 600 ml 627 ml 1975 ml Output Total 700 ml 400 ml 1850 ml Balance -100 ml 227 ml 125 ml Exam General: WN/WD/NAD, AOx 3 HEENT: Unicetric/atraumatic/EOMI ( follow commands) NECK: JVD elevated, no thyromegaly, NGT Lymph: no lymphadenopathy HEART: regular with no S3, II/ systolic murmur at apex LUNGS: Coarse sounds ABD: soft, NT, ND, +BS -post op : Intact Neuro: non focal SKIN: chronic changes EXT: trace edema Results Result Diagram: 05/18/16 04205/18/16 0420 Results 24 hrs Laboratory Tests Test 05/17/16 12:17 05/17/16 18:23 05/17/16 23:58 05/18/16 04:20 Bedside Glucose 91 105 110 Activated Partial Thromboplast Time 38.2 H Anion Gap 12 B-Type Natriuretic Peptide 193 H Basophils # 0.0 Basophils % 0.1 Blood Urea Nitrogen 16 Calcium Level 8.0 L Carbon Dioxide Level 28 Chloride Level 98 Creatinine 0.67 Eosinophils # 0.1 Eosinophils % 0.8 Glucose Level 92 Hematocrit 25.9 L Hemoglobin 8.5 L INR International Normalized Ratio 1.29 Lactic Acid Level 0.7 Lymphocytes # 0.6 L Lymphocytes % 7.1 L Magnesium Level 1.7 Mean Corpuscular Hemoglobin 29.9 Mean Corpuscular Hemoglobin Concent 32.8 Mean Corpuscular Volume 91.2 Mean Platelet Volume 10.8 H Monocytes # 0.4 Monocytes % 4.0 Neutrophils # 7.6 H Neutrophils % 87.5 H Nucleated Red Blood Cells # 0.0 Nucleated Red Blood Cells % 0.0 Phosphorus Level 3.3 Platelet Count 173 Potassium Level 3.9 Prothrombin Time 16.2 H Prothrombin Time Ratio 1.3 Red Blood Count 2.84 L Red Cell Distribution Width 14.4 Sodium Level 134 L White Blood Count 8.7 # Test 05/18/16 05:43 Bedside Glucose 108 Medications Medications Current Medications Ondansetron HCl (Zofran Inj) 4 mg Q6H PRN IV NAUSEA AND/OR VOMITING Last administered on 05/15/16 15:38; Admin Dose 4 MG; Start 05/08/16 at 15:00 Pantoprazole (Protonix Iv) 40 mg BID@06,18 IV Last administered on 05/18/16 05 :32; Admin Dose 40 MG; Start 05/08/16 at 20:00 IV Flush 10 ml 10 ml PRN PRN IV IV PROTOCOL; Start 05/13/16 at 17:30 Total Parenteral Nutrition 1,000 ml @ 75 mls/hr [id number] IV Last administered on 05/18/16 04:41; Admin Dose 75 MLS/HR; Start 05/13/16 at 18:00 Fat Emulsion Intravenous (Liposyn Ii 20%) 250 ml @ 31 mls/hr DAILY@16 IV Last administered on 05/17/16 16:19; Admin Dose 31 MLS/HR; Start 05/13/16 at 18:00 Lorazepam (Ativan) 1 mg Q6H PRN IV ANXIETY Last administered on 05/14/16 22:43 ; Admin Dose 1 MG; Start 05/14/16 at 00:00 Diagnostic Test (Pha) (Accucheck) 1 ea Q6 XX Last administered on 05/17/16 18: 21; Admin Dose 1 EA; Start 05/15/16 at 00:00 Acetaminophen/ Hydrocodone Bitart ([place] (5/325)) 1 tab Q4H PRN PO PAIN LEVEL 4 -7; Start 05/15/16 at 15:00 Acetaminophen/ Hydrocodone Bitart ([place] (5/325)) 2 tab Q4H PRN PO PAIN LEVEL 7 -10; Start 05/15/16 at 15:00 Hydromorphone HCl (Dilaudid) 0.5 mg Q2 PRN IV PAIN; Start 05/15/16 at 15:00 Hydromorphone HCl (Dilaudid) 1 mg Q2 PRN IV PAIN; Start 05/15/16 at 15:00 Docusate Sodium (Colace) 100 mg BID PRN PO CONSTIPATION; Start 05/15/16 at 15: 00 Bisacodyl (Dulcolax Supp) 10 mg BID PRN [place] CONSTIPATION; Start 05/15/16 at 15: 00 Sodium Biphosphate/ Sodium Phosphate (Fleet Enema) 133 ml BID PRN [place] CONSTIPATION; Start 05/15/16 at 15:00 Enoxaparin Sodium (Lovenox) 40 mg DAILY SC Last administered on 05/18/16 08:33 ; Admin Dose 40 MG; Start 05/16/16 at 09:00 Naloxone HCl (Narcan) 0.2 mg Q2M PRN IV RR 8 BREATHS/MIN OR LESS; Start at 15:00 Hydromorphone HCl Q4PCA IV Last administered on 05/18/16 07:16; Admin Dose 6 MG; Start 05/15/16 at 15:00 Piperacillin Sod/ Tazobactam Sod (Zosyn 3.375gm/ 100 ml (Pmx)) 100 ml @ 200 mls /hr Q6 IVPB Last administered on 05/18/16t 05:32; Admin Dose 200 MLS/HR; Start 05/17/16 at 12:00; Stop 05/18/16 at 18:00 DIANNA SCOTT MD May 18, 2016 09:29
--- NOTE | 2016-05-18 11:58 | PN ---
Date/Time of Note Date/Time of Note DATE: 05/18/16 TIME: 11:57 Assessment/Plan VTE Prophylaxis VTE Prophylaxis Intervention: other Lines/Catheters IV [facility]from [facility] Lock Urinary Cath still in place: No Assessment/Plan Chief Complaint/Hosp Course - Gastric outlet obstructive obstruction, status post EGD. Dr. Landeros who is covering for Dr. Gallego is following in gastroenterology consultation. Dr. Mar is following patient in general surgery consultation. Continue patient n.p.o., NG tube to low wall suctioning. Continue TPN and lipids Dr. Gongora is following patient in for cardiology consultation, cleared for surgery. - S/p surgery for severe anastomosis stenosis. Low nue TPN, advance diet per surgery. Continue IS Q1 hr while awake. - Gastrics cancer status post surgery 2-1/2 years ago, status post chemotherapy and radiation. Patient was followed as an outpatient by Dr. Lou in radiation oncology and Dr. Lawrence oncology. Dr. Iglesias is following in hematology/ oncology consultation. -Tobacco dependence. Tobacco cessation is strongly advised. Problems: Subjective 24 Hr Interval Summary Free Text/Dictation Patient denies any pain Exam/Review of Systems Vital Signs Vitals Vital Signs Date Time Temp Pulse Resp B/P Pulse Ox O2 Delivery O2 Flow Rate FiO2 05/18/16 08:55 98.8 76 20 95/61 98 05/18/16 05:00 Room Air Intake and Output 05/17/16 05/17/16 05/18/16 15:00 23:00 07:00 Intake Total 600 ml 627 ml 1975 ml Output Total 700 ml 400 ml 1850 ml Balance -100 ml 227 ml 125 ml Exam Constitutional: well developed Head: atraumatic, normocephalic Neck: supple Respiratory: clear to auscultation Cardiovascular: regular rate and rhythm Gastrointestinal: non-tender, soft Extremities: normal pulses Results Result Diagram: 05/18/16 04205/18/16 0420 Results 24 hrs Laboratory Tests Test 05/17/16 12:17 05/17/16 18:23 05/17/16 23:58 05/18/16 04:20 Bedside Glucose 91 105 110 Activated Partial Thromboplast Time 38.2 H Anion Gap 12 B-Type Natriuretic Peptide 193 H Basophils # 0.0 Basophils % 0.1 Blood Urea Nitrogen 16 Calcium Level 8.0 L Carbon Dioxide Level 28 Chloride Level 98 Creatinine 0.67 Eosinophils # 0.1 Eosinophils % 0.8 Glucose Level 92 Hematocrit 25.9 L Hemoglobin 8.5 L INR International Normalized Ratio 1.29 Lactic Acid Level 0.7 Lymphocytes # 0.6 L Lymphocytes % 7.1 L Magnesium Level 1.7 Mean Corpuscular Hemoglobin 29.9 Mean Corpuscular Hemoglobin Concent 32.8 Mean Corpuscular Volume 91.2 Mean Platelet Volume 10.8 H Monocytes # 0.4 Monocytes % 4.0 Neutrophils # 7.6 H Neutrophils % 87.5 H Nucleated Red Blood Cells # 0.0 Nucleated Red Blood Cells % 0.0 Phosphorus Level 3.3 Platelet Count 173 Potassium Level 3.9 Prothrombin Time 16.2 H Prothrombin Time Ratio 1.3 Red Blood Count 2.84 L Red Cell Distribution Width 14.4 Sodium Level 134 L White Blood Count 8.7 # Test 05/18/16 05:43 Bedside Glucose 108 Medications Medications Current Medications Ondansetron HCl (Zofran Inj) 4 mg Q6H PRN IV NAUSEA AND/OR VOMITING Last administered on 05/15/16 15:38; Admin Dose 4 MG; Start 05/08/16 at 15:00 Pantoprazole (Protonix Iv) 40 mg BID@06,18 IV Last administered on 05/18/16 05 :32; Admin Dose 40 MG; Start 05/08/16 at 20:00 IV Flush 10 ml 10 ml PRN PRN IV IV PROTOCOL; Start 05/13/16 at 17:30 Total Parenteral Nutrition 1,000 ml @ 75 mls/hr [id number] IV Last administered on 05/18/16 04:41; Admin Dose 75 MLS/HR; Start 05/13/16 at 18:00 Fat Emulsion Intravenous (Liposyn Ii 20%) 250 ml @ 31 mls/hr DAILY@16 IV Last administered on 05/17/16 16:19; Admin Dose 31 MLS/HR; Start 05/13/16 at 18:00 Lorazepam (Ativan) 1 mg Q6H PRN IV ANXIETY Last administered on 05/14/16 22:43 ; Admin Dose 1 MG; Start 05/14/16 at 00:00 Diagnostic Test (Pha) (Accucheck) 1 ea Q6 XX Last administered on 05/17/16 18: 21; Admin Dose 1 EA; Start 05/15/16 at 00:00 Acetaminophen/ Hydrocodone Bitart ([place] (5/325)) 1 tab Q4H PRN PO PAIN LEVEL 4 -7; Start 05/15/16 at 15:00 Acetaminophen/ Hydrocodone Bitart ([place] (5/325)) 2 tab Q4H PRN PO PAIN LEVEL 7 -10; Start 05/15/16 at 15:00 Hydromorphone HCl (Dilaudid) 0.5 mg Q2 PRN IV PAIN; Start 05/15/16 at 15:00 Hydromorphone HCl (Dilaudid) 1 mg Q2 PRN IV PAIN; Start 05/15/16 at 15:00 Docusate Sodium (Colace) 100 mg BID PRN PO CONSTIPATION; Start 05/15/16 at 15: 00 Bisacodyl (Dulcolax Supp) 10 mg BID PRN [place] CONSTIPATION; Start 05/15/16 at 15: 00 Sodium Biphosphate/ Sodium Phosphate (Fleet Enema) 133 ml BID PRN [place] CONSTIPATION; Start 05/15/16 at 15:00 Enoxaparin Sodium (Lovenox) 40 mg DAILY SC Last administered on 05/18/16 08:33 ; Admin Dose 40 MG; Start 05/16/16 at 09:00 Naloxone HCl (Narcan) 0.2 mg Q2M PRN IV RR 8 BREATHS/MIN OR LESS; Start at 15:00 Hydromorphone HCl Q4PCA IV Last administered on 05/18/16 07:16; Admin Dose 6 MG; Start 05/15/16 at 15:00 Piperacillin Sod/ Tazobactam Sod (Zosyn 3.375gm/ 100 ml (Pmx)) 100 ml @ 200 mls /hr Q6 IVPB Last administered on 05/18/16 05:32; Admin Dose 200 MLS/HR; Start 05/17/16 at 12:00; Stop 05/18/16 at 18:00 ROLANDO RICH 19, 2017 11:57
[2016-05-18] MEDS: FAT EMULSION 20% 250 ML IV SCH (16:23)
--- NOTE | 2016-05-18 18:41 | CONS ---
Date/Time of Note Date/Time of Note DATE: 05/18/16 TIME: 18:39 Assessment/Plan Assessment/Plan Additional Assessment/Plan 1. Preoperative evaluation prior to surgery for gastric outlet obstruction.- NO cardiac contraindication to proceeding with surgery at this time at moderate risk. Check post-op ECG and follow for s/s/x of CV complications post- operatively - stable - rate controlled now - off tele now - awake, stable - con' t to follow 2. Abnormal electrocardiogram with T-wave flattening in aVL.-negative troponin x 2 3. Diastolic dysfunction by 2-D echo done this admission- euvolemic by exam, chronic. EUVOLEMIC by exam. 4. Hypertension, labile with borderline hypotension- WELL RX currently. 5. Gastric outlet obstruction- GI team follows. 6. Nausea, vomiting secondary to gastric outlet obstruction. 7. Weight loss secondary to gastric outlet obstruction. 8. Recent cessation of tobacco usage. Consultation Date/Type/Reason Admit Date/Time May 08, 2016 at 13:19 Initial Consult Date 05/08/16 Referring Provider: SOFIA SHAFFER MD 24 HR Interval Summary Free Text/Dictation NO acute events - off tele - stable overall. ROS: No fever, no chills, no nausea, no vomiting, no diarrhea/constipation No recent weight changes No chest pain, no PND, no orthopnea No dizziness, blurred vision No thirst, no heat or cold intolerance Exam/Review of Systems Vital Signs Vitals Vital Signs Date Time Temp Pulse Resp B/P Pulse Ox O2 Delivery O2 Flow Rate FiO2 05/18/16 18:35 98.8 82 16 106/57 96 Room Air Intake and Output 05/17/16 05/17/16 05/18/16 15:00 23:00 07:00 Intake Total 600 ml 627 ml 1975 ml Output Total 700 ml 400 ml 1850 ml Balance -100 ml 227 ml 125 ml Exam General: WN/WD/NAD, AOx 3 HEENT: Unicetric/atraumatic/EOMI ( follow commands) NECK: JVD elevated, no thyromegaly, NGT Lymph: no lymphadenopathy HEART: regular with no S3, II/ systolic murmur at apex LUNGS: Coarse sounds ABD: soft, NT, ND, +BS -post op : Intact Neuro: non focal SKIN: chronic changes EXT: trace edema Results Result Diagram: 05/18/160 05/18/16 0420 Results 24 hrs Laboratory Tests Test 05/17/16 23:58 05/18/16 04:20 05/18/16 05:43 05/18/16 12:20 Bedside Glucose 110 108 100 Activated Partial Thromboplast Time 38.2 H Anion Gap 12 B-Type Natriuretic Peptide 193 H Basophils # 0.0 Basophils % 0.1 Blood Urea Nitrogen 16 Calcium Level 8.0 L Carbon Dioxide Level 28 Chloride Level 98 Creatinine 0.67 Eosinophils # 0.1 Eosinophils % 0.8 Glucose Level 92 Hematocrit 25.9 L Hemoglobin 8.5 L INR International Normalized Ratio 1.29 Lactic Acid Level 0.7 Lymphocytes # 0.6 L Lymphocytes % 7.1 L Magnesium Level 1.7 Mean Corpuscular Hemoglobin 29.9 Mean Corpuscular Hemoglobin Concent 32.8 Mean Corpuscular Volume 91.2 Mean Platelet Volume 10.8 H Monocytes # 0.4 Monocytes % 4.0 Neutrophils # 7.6 H Neutrophils % 87.5 H Nucleated Red Blood Cells # 0.0 Nucleated Red Blood Cells % 0.0 Phosphorus Level 3.3 Platelet Count 173 Potassium Level 3.9 Prothrombin Time 16.2 H Prothrombin Time Ratio 1.3 Red Blood Count 2.84 L Red Cell Distribution Width 14.4 Sodium Level 134 L White Blood Count 8.7 # Test 05/18/16 17:53 Bedside Glucose 94 Medications Medications Current Medications Ondansetron HCl (Zofran Inj) 4 mg Q6H PRN IV NAUSEA AND/OR VOMITING Last administered on 05/15/16 15:38; Admin Dose 4 MG; Start 05/08/16 at 15:00 Pantoprazole (Protonix Iv) 40 mg BID@06,18 IV Last administered on 05/18/16 18 :24; Admin Dose 40 MG; Start 05/08/16 at 20:00 IV Flush 10 ml 10 ml PRN PRN IV IV PROTOCOL; Start 05/13/16 at 17:30 Total Parenteral Nutrition 1,000 ml @ 75 mls/hr [id number] IV Last administered on 05/18/16 18:24; Admin Dose 75 MLS/HR; Start 05/13/16 at 18:00 Fat Emulsion Intravenous (Liposyn Ii 20%) 250 ml @ 31 mls/hr DAILY@16 IV Last administered on 05/18/16 16:23; Admin Dose 31 MLS/HR; Start 05/13/16 at 18:00 Lorazepam (Ativan) 1 mg Q6H PRN IV ANXIETY Last administered on 05/14/16 22:43 ; Admin Dose 1 MG; Start 05/14/16 at 00:00 Diagnostic Test (Pha) (Accucheck) 1 ea Q6 XX Last administered on 05/18/16 17: 54; Admin Dose 1 EA; Start 05/15/16 at 00:00 Acetaminophen/ Hydrocodone Bitart ([place] (5/325)) 1 tab Q4H PRN PO PAIN LEVEL 4 -7; Start 05/15/16 at 15:00 Acetaminophen/ Hydrocodone Bitart ([place] (5/325)) 2 tab Q4H PRN PO PAIN LEVEL 7 -10; Start 05/15/16 at 15:00 Hydromorphone HCl (Dilaudid) 0.5 mg Q2 PRN IV PAIN; Start 05/15/16 at 15:00 Hydromorphone HCl (Dilaudid) 1 mg Q2 PRN IV PAIN; Start 05/15/16 at 15:00 Docusate Sodium (Colace) 100 mg BID PRN PO CONSTIPATION; Start 05/15/16 at 15: 00 Bisacodyl (Dulcolax Supp) 10 mg BID PRN [place] CONSTIPATION; Start 05/15/16 at 15: 00 Sodium Biphosphate/ Sodium Phosphate (Fleet Enema) 133 ml BID PRN [place] CONSTIPATION; Start 05/15/16 at 15:00 Enoxaparin Sodium (Lovenox) 40 mg DAILY SC Last administered on 05/18/16 08:33 ; Admin Dose 40 MG; Start 05/16/16 at 09:00 Naloxone HCl (Narcan) 0.2 mg Q2M PRN IV RR 8 BREATHS/MIN OR LESS; Start at 15:00 Hydromorphone HCl (Dilaudid TERRA [employer]OT[employer]TER) Q4PCA IV Last administered on 05/18/16 07:16 ; Admin Dose 6 MG; Start 05/15/16 at 15:00 RADHA CARRINGTON MD May 18, 2016 18:40
--- NOTE | 2016-05-18 21:21 | PN ---
DATE: SUBJECTIVE: No complaints. No nausea, no vomiting. OBJECTIVE: VITAL SIGNS: Stable. ABDOMEN: Benign, tolerating feeding. LUNGS: Clear. EXTREMITIES: No edema. CENTRAL NERVOUS SYSTEM: Grossly within normal limits. LABORATORY DATA: WBC dropped down to 8.7, hematocrit 25.9. IMPRESSION: 1. Gastric outlet obstruction secondary to anastomotic stricture, successfully treated by the surge ry. 2. History of gastric cancer. No evidence of recurrence or metastases. 3. Anemia. PLAN: Advance diet as per Dr. Mar. Dictated By: INA CARCAMO/JEFRY Conf#: [id number] DID#: [id number]
[2016-05-19 05:06] LABS: ADD SCAN DIFF NO
[2016-05-19] MEDS: ACCU-CHEK XX SCH ×4 (05:16→18:12)
[2016-05-19] MEDS: PANTOPRAZOLE 40 MG INJ IV SCH (05:17)
[2016-05-19 05:18] LABS: BASOPHILS % 0.1 % (0.0-2.0); EOSINOPHILS # 0.1 10^3/ul (0.0-0.5); EOSINOPHILS % 1.7 % (0.0-7.0); HEMATOCRIT 25.6 % (42.0-52.0); HEMOGLOBIN 8.6 g/dl (14.0-18.0); LYMPHOCYTES # 0.6 10^3/ul (0.8-2.9); LYMPHOCYTES % 7.9 % (15.0-51.0); MEAN CORPUSCULAR HEMOGLOBIN 30.3 pg (29.0-33.0); MEAN CORPUSCULAR HGB CONC 33.6 g/dl (32.0-37.0); MEAN CORPUSCULAR VOLUME 90.1 fl (82.0-101.0); MEAN PLATELET VOLUME 10.7 fl (7.4-10.4); MONOCYTE # 0.4 10^3/ul (0.3-0.9); MONOCYTES % 5.1 % (0.0-11.0); NEUTROPHIL # 6.5 10^3/ul (1.6-7.5); NEUTROPHILS % 84.4 % (39.0-77.0); PLATELET COUNT 200 10^3/UL (140-415); RED BLOOD COUNT 2.84 10^6/ul (4.70-6.10); RED CELL DISTRIBUTION WIDTH 14.4 % (11.5-14.5); WHITE BLOOD COUNT 7.7 10^3/ul (4.8-10.8)
[2016-05-19 05:30] VITALS: BP 100/61; PULSE 79; RESP 18
[2016-05-19 05:37] LABS: CREATININE 0.69 mg/dl (0.61-1.24)
[2016-05-19 05:38] LABS: CALCIUM 8.1 mg/dl (8.4-10.2)
--- NOTE | 2016-05-19 07:18 | PN ---
Date/Time of Note Date/Time of Note DATE: 05/18/16 TIME: 14:15 Assessment/Plan Lines/Catheters IV Catheter Type (from Nrs): Saline Lock Alex in Place (from Nrs): No Assessment/Plan Assessment/Plan [facility] Progress Note (late entry) Date of Service: 05/18/16 Today's Impression & Plan: Overall stable and improving. No obvious post operative complication. Abd remains benign. No evidence for gastric dysfunction on regular diet. Likely ok to wean off TPN and start d/c planning. With above assessment, I've recommended the following for today: 1. Start D/c planning 2. Cont regular diet 3. Increase activity 4. Increase ICS 5. Cont TID wet to moist dressing changes 6. Will start weaning off TPN tomorrow Thank you again for your great care of this very pleasant patient and wonderful family. If there are any questions, please feel free to call me at [phone]. TOTAL VISIT TIME: 20 minutes of which more than half was spent in [id number] discussion with the patient, possibly including family, as well as coordination of care between multiple physicians and providers. Disclaimer: Inadvertent spelling or grammatical errors are likely due to EHR/ dictation software use and do not reflect on the overall quality of patient care. Updated Clinical Summary: This is a very pleasant 60-year-old gentleman with comorbidity of previous history of gastric cancer status post resection in [facility] about 20 years ago and then recurrence in 2013 when the patient underwent endoscopic biopsy at [facility] in November of 2013. Then subsequently was transferred to [facility] where he underwent re-resection with RY anastomosis (also included partial resection of wall of transverse colon with repair. Final pathology: extensive poorly differentiated, minimally mucin producing 7.3 cm, G3 adenocarcinoma of the stomach extending focally to distal resected margin of specimen associated with duodenum (positive margin; R1 resection), - LV, - perineural invasion, 6/11 nodes positive, negative proximal margin, TNM stage: [id number], and Her2 status unknown. Readmitted one month after surgery where EGD 01/24/14 showed gastric outlet obstruction with edema and ulceration at the anastomosis, as well as LA class IV esophageal ulceration. He was subsequently treated with chemotherapy and radiation. The details are currently missing and we are in the process of obtaining those. He also has a BMI 19.0 mainly due to 10 to 20 year history of difficulty with eating. This history has worsened over the last 3 years. The patient has had multiple endoscopic evaluations at [facility] starting 03/2015, repeated 10/2015, repeated 01/2016 and then 04/03/2016. In all of these endoscopic evaluations, the patient was found to have narrowing of the gastric outlet anastomosis onto the small intestine. The attempts to dilate this area were unsuccessful where the scope could not be passed. Several biopsies on all of these endoscopic attempts were negative. Patient was admitted to [facility] on 05/08/2016 with nausea, vomiting and abdominal pain. Endoscopic evaluation was repeated and similar findings were found with inability to pass the scope. S/p a laparoscopic, converted to open, resection of old gastrojejunostomy with reconstruction with primary anastomosis with complication of perforation of gallbladder by trocar as well as enterotomy ( transverse colon) during entry through the midline fascia in to the abdominal cavity, with subsequent primary repair of enterotomy of the transverse colon, cholecystectomy, and lysis of adhesions (at least 90 minutes) and abdominal lavage on 05/15/16 with findings of anastomotic narrowing due to scar tissue and no obvious evidence of malignancy. Final path showed no evidence of malignancy. COMORBIDITIES: 1. History of gastric cancer status post resection in [facility] 20 years ago followed by re-resection at [facility] in 2013 and then treated with radiation and chemotherapy. (Details are missing). 2. History of gastric outlet obstruction with multiple endoscopic evaluations and at least in 2015 and 2016. Five endoscopic evaluations, none of which showed evidence of recurrence of cancer, but the patient was not able to be dilated due to the small pinhole opening that was connecting his stomach to his small intestine. S/p a laparoscopic, converted to open, resection of old gastrojejunostomy with reconstruction with primary anastomosis with complication of perforation of gallbladder by trocar as well as enterotomy ( transverse colon) during entry through the midline fascia in to the abdominal cavity, with subsequent primary repair of enterotomy of the transverse colon, cholecystectomy, and lysis of adhesions (at least 90 minutes) and abdominal lavage on 05/15/16 with findings of anastomotic narrowing due to scar tissue and no obvious evidence of malignancy. Final path showed no evidence of malignancy. 4. Every day smoker. 5. Esophageal ulcers noted on multiple endoscopic evaluations. 6. History of bilateral nonobstructing renal calculi. 7. History of right hydrocele. 8. Atherosclerotic vascular disease. 9. Anemia 10. Malnutrition 11. Hypothyroidism 12. Smoker 1ppd many decades 13. Father with lung cancer Subjective: No major events or complaints overnight; no major abd pain and under control with medications; no n/v/d; no sob or cp; + flatus; + BM; more activity Objective: Vitals: See below Exam: GENERAL: On exam, the patient was laying in bed and appeared to be comfortable and in no acute distress. ABDOMEN: Soft, nontender and nondistended. Incisions clean w/o obvious e/e/d/h. There are no peritoneal signs or guarding. SKIN: Skin appears to be pink and feels warm to touch. NEUROLOGIC: Patient is awake, alert, and follows commands appropriately. Exam/Review of Systems Vital Signs Vitals Vital Signs Date Time Temp Pulse Resp B/P Pulse Ox O2 Delivery O2 Flow Rate FiO2 05/19/16 05:30 18 05/19/16 05:30 98.6 79 100/61 97 Room Air Intake and Output 05/18/16 05/18/16 05/19/16 15:00 23:00 07:00 Intake Total 100 ml 865 ml 1250 ml Output Total 1070 ml 2500 ml Balance 100 ml -205 ml -1250 ml Results Result Diagram: 05/19/16 0424 05/19/16 0424 SHANDRA KO M.D. May 19, 2016 07:18
[2016-05-19 07:37] VITALS: BP 114/66; RESP 18
--- NOTE | 2016-05-19 07:38 | PN ---
Date/Time of Note Date/Time of Note DATE: 05/19/16 TIME: 07:36 Assessment/Plan Lines/Catheters IV Catheter Type (from [facility]): Saline Lock Alex in Place (from [facility]): No Assessment/Plan Assessment/Plan [facility] Progress Note Date of Service: 05/19/16 Today's Impression & Plan: Overall stable and improving. No obvious post operative complication. Abd remains benign. No evidence for gastric dysfunction on regular diet. With above assessment, I've recommended the following for today: 1. Wean off TPN today 2. Cont regular diet 3. Increase activity 4. Increase ICS 5. Cont TID wet to moist dressing changes 6. Home health set up vs. SNF 7. Saline lock IV's 8. Oral conversion 9. D/c planning for tomorrow Thank you again for your great care of this very pleasant patient and wonderful family. If there are any questions, please feel free to call me at [phone]. TOTAL VISIT TIME: 20 minutes of which more than half was spent in [id number] discussion with the patient, possibly including family, as well as coordination of care between multiple physicians and providers. Disclaimer: Inadvertent spelling or grammatical errors are likely due to EHR/ dictation software use and do not reflect on the overall quality of patient care. Updated Clinical Summary: This is a very pleasant 60-year-old gentleman with comorbidity of previous history of gastric cancer status post resection in [facility] about 20 years ago and then recurrence in 2013 when the patient underwent endoscopic biopsy at [facility] in November of 2013. Then subsequently was transferred to [facility] where he underwent re-resection with RY anastomosis (also included partial resection of wall of transverse colon with repair. Final pathology: extensive poorly differentiated, minimally mucin producing 7.3 cm, G3 adenocarcinoma of the stomach extending focally to distal resected margin of specimen associated with duodenum (positive margin; R1 resection), - LV, - perineural invasion, 6/11 nodes positive, negative proximal margin, TNM stage: [id number], and Her2 status unknown. Readmitted one month after surgery where EGD 01/24/14 showed gastric outlet obstruction with edema and ulceration at the anastomosis, as well as LA class IV esophageal ulceration. He was subsequently treated with chemotherapy and radiation. The details are currently missing and we are in the process of obtaining those. He also has a BMI 19.0 mainly due to 10 to 20 year history of difficulty with eating. This history has worsened over the last 3 years. The patient has had multiple endoscopic evaluations at [facility] starting 03/2015, repeated 10/2015, repeated 01/2016 and then 04/03/2016. In all of these endoscopic evaluations, the patient was found to have narrowing of the gastric outlet anastomosis onto the small intestine. The attempts to dilate this area were unsuccessful where the scope could not be passed. Several biopsies on all of these endoscopic attempts were negative. Patient was admitted to [facility] on 05/08/2016 with nausea, vomiting and abdominal pain. Endoscopic evaluation was repeated and similar findings were found with inability to pass the scope. S/p a laparoscopic, converted to open, resection of old gastrojejunostomy with reconstruction with primary anastomosis with complication of perforation of gallbladder by trocar as well as enterotomy ( transverse colon) during entry through the midline fascia in to the abdominal cavity, with subsequent primary repair of enterotomy of the transverse colon, cholecystectomy, and lysis of adhesions (at least 90 minutes) and abdominal lavage on 05/15/16 with findings of anastomotic narrowing due to scar tissue and no obvious evidence of malignancy. Final path showed no evidence of malignancy. COMORBIDITIES: 1. History of gastric cancer status post resection in [facility] 20 years ago followed by re-resection at [facility] in 2013 and then treated with radiation and chemotherapy. (Details are missing). 2. History of gastric outlet obstruction with multiple endoscopic evaluations and at least in 2015 and 2016. Five endoscopic evaluations, none of which showed evidence of recurrence of cancer, but the patient was not able to be dilated due to the small pinhole opening that was connecting his stomach to his small intestine. S/p a laparoscopic, converted to open, resection of old gastrojejunostomy with reconstruction with primary anastomosis with complication of perforation of gallbladder by trocar as well as enterotomy ( transverse colon) during entry through the midline fascia in to the abdominal cavity, with subsequent primary repair of enterotomy of the transverse colon, cholecystectomy, and lysis of adhesions (at least 90 minutes) and abdominal lavage on 05/15/16 with findings of anastomotic narrowing due to scar tissue and no obvious evidence of malignancy. Final path showed no evidence of malignancy. 4. Every day smoker. 5. Esophageal ulcers noted on multiple endoscopic evaluations. 6. History of bilateral nonobstructing renal calculi. 7. History of right hydrocele. 8. Atherosclerotic vascular disease. 9. Anemia 10. Malnutrition 11. Hypothyroidism 12. Smoker 1ppd many decades 13. Father with lung cancer Subjective: No major events or complaints overnight; no major abd pain and under control with medications; no n/v/d; no sob or cp; + flatus; + BM; more activity Objective: Vitals: See below Exam: GENERAL: On exam, the patient was laying in bed and appeared to be comfortable and in no acute distress. ABDOMEN: Soft, nontender and nondistended. Incisions clean w/o obvious e/e/d/h. There are no peritoneal signs or guarding. SKIN: Skin appears to be pink and feels warm to touch. NEUROLOGIC: Patient is awake, alert, and follows commands appropriately. Exam/Review of Systems Vital Signs Vitals Vital Signs Date Time Temp Pulse Resp B/P Pulse Ox O2 Delivery O2 Flow Rate FiO2 05/19/16 05:30 18 05/19/16 05:30 98.6 79 100/61 97 Room Air Intake and Output 05/18/16 05/18/16 05/19/16 15:00 23:00 07:00 Intake Total 100 ml 865 ml 1250 ml Output Total 1070 ml 2500 ml Balance 100 ml -205 ml -1250 ml Results Result Diagram: 05/19/16 0424 05/19/16 0424 SHANDRA KO M.D. May 19, 2016 07:37
[2016-05-19] MEDS: TPN 1,000 ML IV SCH (08:10)
[2016-05-19] MEDS: ENOXAPARIN 40 MG/0.4 ML SYG SC SCH (08:16)
[2016-05-19] MEDS: FAT EMULSION 20% 250 ML IV SCH (12:59)
[2016-05-19 13:04] VITALS: BP 115/70; PULSE 80; RESP 16
--- NOTE | 2016-05-19 13:35 | CONS ---
Date/Time of Note Date/Time of Note DATE: 05/19/16 TIME: 13:33 Assessment/Plan Assessment/Plan Chief Complaint/Hosp Course IMPRESSION: 1. Preoperative evaluation prior to surgery for gastric outlet obstruction.- NO cardiac contraindication to proceeding with surgery at this time at moderate risk. Check post-op ECG and follow for s/s/x of CV complications post- operatively 2. Abnormal electrocardiogram with T-wave flattening in aVL.-negative troponin x 2 3. Diastolic dysfunction by 2-D echo done this admission. 4. Hypertension, labile with borderline hypotension. 5. Gastric outlet obstruction s/p surgical correction 6. Nausea, vomiting secondary to gastric outlet obstruction. 7. Weight loss secondary to gastric outlet obstruction. 8. Recent cessation of tobacco usage. Recc: -Continue pain control -Routine post-op care -Follow BP closely which remains marginal Problems: Consultation Date/Type/Reason Admit Date/Time May 08, 2016 at 13:19 Initial Consult Date 05/08/16 Type of Consultation: Pre-op Reason for Consultation Cardiology Referring Provider: SOFIA SHAFFER MD Exam/Review of Systems Vital Signs Vitals Vital Signs Date Time Temp Pulse Resp B/P Pulse Ox O2 Delivery O2 Flow Rate FiO2 05/19/16 13:05 16 05/19/16 13:04 98.9 80 115/70 96 Room Air Intake and Output 05/18/16 05/18/16 05/19/16 14:59 22:59 06:59 Intake Total 100 ml 965 ml 1250 ml Output Total 1070 ml 2500 ml Balance 100 ml -105 ml -1250 ml Exam Review of Systems: CONSTITUTIONAL: No fevers, chills. PULMONARY: No sob CARDIOVASCULAR: No chest pain/palpitations GASTROINTESTINAL: No nausea/vomiting. GENITOURINARY: No hematuria/dysuria. MUSCULOSKELETAL: No myagias/arthalgias. PSYCHIATRIC: The patient denies depression. NEUROLOGIC: No weakness Constitutional: alert Psych: no complaints Head: normocephalic Neck: jvd (8 cm water), supple Respiratory: clear to auscultation Cardiovascular: regular rate and rhythm Gastrointestinal: other (covered by dressing), soft Musculoskeletal: muscle tone (normal) Extremities: edema (none) Neurological: other (No focal deficits) Results Result Diagram: 05/19/16 0424 05/19/164 Results 24 hrs Laboratory Tests Test 05/18/16 17:53 05/18/16 23:49 05/19/16 04:24 05/19/16 05:14 Bedside Glucose 94 138 118 Anion Gap 11 Basophils # 0.0 Basophils % 0.1 Blood Urea Nitrogen 15 Calcium Level 8.1 L Carbon Dioxide Level 30 Chloride Level 97 Creatinine 0.69 Eosinophils # 0.1 Eosinophils % 1.7 Glucose Level 103 Hematocrit 25.6 L Hemoglobin 8.6 L Lymphocytes # 0.6 L Lymphocytes % 7.9 L Mean Corpuscular Hemoglobin 30.3 Mean Corpuscular Hemoglobin Concent 33.6 Mean Corpuscular Volume 90.1 Mean Platelet Volume 10.7 H Monocytes # 0.4 Monocytes % 5.1 Neutrophils # 6.5 Neutrophils % 84.4 H Nucleated Red Blood Cells # 0.0 Nucleated Red Blood Cells % 0.0 Platelet Count 200 Potassium Level 4.0 Red Blood Count 2.84 L Red Cell Distribution Width 14.4 Sodium Level 134 L White Blood Count 7.7 Test 05/19/16 12:07 Bedside Glucose 89 Medications Medications Current Medications Ondansetron HCl (Zofran Inj) 4 mg Q6H PRN IV NAUSEA AND/OR VOMITING Last administered on 05/15/16 15:38; Admin Dose 4 MG; Start 05/08/16 at 15:00 IV Flush (NS 10 ml) 10 ml PRN PRN IV IV PROTOCOL; Start 05/13/16 at 17:30 Lorazepam (Ativan) 1 mg Q6H PRN IV ANXIETY Last administered on 05/14/16 22:43 ; Admin Dose 1 MG; Start 05/14/16 at 00:00 Diagnostic Test (Pha) (Accucheck) 1 ea Q6 XX Last administered on 05/19/16 12: 07; Admin Dose 1 EA; Start 05/15/16 at 00:00 Acetaminophen/ Hydrocodone Bitart ([place] (5/325)) 1 tab Q4H PRN PO PAIN LEVEL 4 -7; Start 05/15/16 at 15:00 Acetaminophen/ Hydrocodone Bitart ([place] (5/325)) 2 tab Q4H PRN PO PAIN LEVEL 7 -10 Last administered on 05/19/16 13:07; Admin Dose 2 TAB; Start 05/15/16 at 15 :00 Hydromorphone HCl (Dilaudid) 0.5 mg Q2 PRN IV PAIN; Start 05/15/16 at 15:00 Hydromorphone HCl (Dilaudid) 1 mg Q2 PRN IV PAIN; Start 05/15/16 at 15:00 Docusate Sodium (Colace) 100 mg BID PRN PO CONSTIPATION; Start 05/15/16 at 15: 00 Bisacodyl (Dulcolax Supp) 10 mg BID PRN [place] CONSTIPATION; Start 05/15/16 at 15: 00 Sodium Biphosphate/ Sodium Phosphate (Fleet Enema) 133 ml BID PRN [place] CONSTIPATION; Start 05/15/16 at 15:00 Enoxaparin Sodium (Lovenox) 40 mg DAILY SC Last administered on 05/19/16 08:16 ; Admin Dose 40 MG; Start 05/16/16 at 09:00 Naloxone HCl (Narcan) 0.2 mg Q2M PRN IV RR 8 BREATHS/MIN OR LESS; Start at 15:00 Hydromorphone HCl (Dilaudid PROCESS IMPROVEMENT SPECIALIST) Q4PCA IV Last administered on 05/18/16 07:16 ; Admin Dose 6 MG; Start 05/15/16 at 15:00; Status Future Hold Pantoprazole (Protonix Tab) 40 mg DAILY@06 PO ; Start 05/20/16 at 06:00 AVEL DOS SANTOS May 19, 2016 13:35
--- NOTE | 2016-05-19 16:25 | CONS ---
Date/Time of Note Date/Time of Note DATE: 05/19/16 TIME: 16:24 Assessment/Plan Assessment/Plan Chief Complaint/Hosp Course HX GASTRIC CANCER SP Stomach surgery sec to stomach cancer - s/p RNY surgery PER DR VALENTINE NOTE- History of gastric cancer status post resection in [facility] 20 years ago followed by re-resection at [facility] in 2013 and then treated with radiation and chemotherapy. (Details are missing) . History of gastric outlet obstruction with multiple endoscopic evaluations and at least in 2015 and 2016. Five endoscopic evaluations, none of which showed evidence of recurrence of cancer , but the patient was not able to be dilated due to the small pinhole opening that was connecting his stomach to his small intestine. -Gastric outflow obstruction with Intractable vomiting with nausea 2/2 high grade gastric outlet obstruction - Zofran ENDOSCOPY- NOTED POST OP Final path showed no evidence of malignancy (reviewed with patient). cont postop care esophagitis Small bilateral nonobstructing renal calculi. Atherosclerotic vascular disease. Smoker- Current every day smoker(1-2 TIMES PER WEEK, CIGARETTES) Right hydrocele. - Urology consult appreciated- Dr Lozada notified Small bilateral nonobstructing renal calculi. - per Urology Atherosclerotic vascular disease. Hx Esophagitis SCDs for DVT prophylaxis Protonix for GI prophylaxis Problems: Consultation Date/Type/Reason Admit Date/Time May 08, 2016 at 13:19 Initial Consult Date 05/08/16 Type of Consultation: hemeon Referring Provider: SOFIA SHAFFER MD 24 HR Interval Summary Free Text/Dictation all noted no new events improving Exam/Review of Systems Vital Signs Vitals Vital Signs Date Time Temp Pulse Resp B/P Pulse Ox O2 Delivery O2 Flow Rate FiO2 05/19/16 13:05 16 05/19/16 13:04 98.9 80 115/70 96 Room Air Intake and Output 05/18/16 05/18/16 05/19/16 15:00 23:00 07:00 Intake Total 100 ml 965 ml 1250 ml Output Total 1070 ml 2500 ml Balance 100 ml -105 ml -1250 ml Exam General: WN/WD/NAD, AOx 3 HEENT: Unicetric/atraumatic/EOMI ( follow commands) NECK: JVD elevated, no thyromegaly, NGT Lymph: no lymphadenopathy HEART: regular with no S3, II/ systolic murmur at apex LUNGS: Coarse sounds ABD: soft, NT, ND, +BS -post op : Intact Neuro: non focal SKIN: chronic changes EXT: trace edema Results Result Diagram: 05/19/1642305/19/16423 Results 24 hrs Laboratory Tests Test 05/18/16 17:53 05/18/16 23:49 05/19/16 04:24 05/19/16 05:14 Bedside Glucose 94 138 118 Anion Gap 11 Basophils # 0.0 Basophils % 0.1 Blood Urea Nitrogen 15 Calcium Level 8.1 L Carbon Dioxide Level 30 Chloride Level 97 Creatinine 0.69 Eosinophils # 0.1 Eosinophils % 1.7 Glucose Level 103 Hematocrit 25.6 L Hemoglobin 8.6 L Lymphocytes # 0.6 L Lymphocytes % 7.9 L Mean Corpuscular Hemoglobin 30.3 Mean Corpuscular Hemoglobin Concent 33.6 Mean Corpuscular Volume 90.1 Mean Platelet Volume 10.7 H Monocytes # 0.4 Monocytes % 5.1 Neutrophils # 6.5 Neutrophils % 84.4 H Nucleated Red Blood Cells # 0.0 Nucleated Red Blood Cells % 0.0 Platelet Count 200 Potassium Level 4.0 Red Blood Count 2.84 L Red Cell Distribution Width 14.4 Sodium Level 134 L White Blood Count 7.7 Test 05/19/16 12:07 Bedside Glucose 89 Medications Medications Current Medications Ondansetron HCl (Zofran Inj) 4 mg Q6H PRN IV NAUSEA AND/OR VOMITING Last administered on 05/15/16 15:38; Admin Dose 4 MG; Start 05/08/16 at 15:00 IV Flush (NS 10 ml) 10 ml PRN PRN IV IV PROTOCOL; Start 05/13/16 at 17:30 Lorazepam (Ativan) 1 mg Q6H PRN IV ANXIETY Last administered on 05/14/16 22:43 ; Admin Dose 1 MG; Start 05/14/16 at 00:00 Diagnostic Test (Pha) (Accucheck) 1 ea Q6 XX Last administered on 05/19/16 12: 07; Admin Dose 1 EA; Start 05/15/16 at 00:00 Acetaminophen/ Hydrocodone Bitart ([place] (5/325)) 1 tab Q4H PRN PO PAIN LEVEL 4 -7; Start 05/15/16 at 15:00 Acetaminophen/ Hydrocodone Bitart ([place] (5/325)) 2 tab Q4H PRN PO PAIN LEVEL 7 -10 Last administered on 05/19/16 13:07; Admin Dose 2 TAB; Start 05/15/16 at 15 :00 Hydromorphone HCl (Dilaudid) 0.5 mg Q2 PRN IV PAIN; Start 05/15/16 at 15:00 Hydromorphone HCl (Dilaudid) 1 mg Q2 PRN IV PAIN; Start 05/15/16 at 15:00 Docusate Sodium (Colace) 100 mg BID PRN PO CONSTIPATION; Start 05/15/16 at 15: 00 Bisacodyl (Dulcolax Supp) 10 mg BID PRN [place] CONSTIPATION; Start 05/15/16 at 15: 00 Sodium Biphosphate/ Sodium Phosphate (Fleet Enema) 133 ml BID PRN [place] CONSTIPATION; Start 05/15/16 at 15:00 Enoxaparin Sodium (Lovenox) 40 mg DAILY SC Last administered on 05/19/16 08:16 ; Admin Dose 40 MG; Start 05/16/16 at 09:00 Naloxone HCl (Narcan) 0.2 mg Q2M PRN IV RR 8 BREATHS/MIN OR LESS; Start at 15:00 Hydromorphone HCl (Dilaudid YOUTH COORDINATOR) Q4PCA IV Last administered on 05/18/16 07:16 ; Admin Dose 6 MG; Start 05/15/16 at 15:00; Status Future Hold Pantoprazole (Protonix Tab) 40 mg DAILY@06 PO ; Start 05/20/16 at 06:00 DIANNA SCOTT MD May 19, 2016 16:25
--- NOTE | 2016-05-19 16:48 | CONS ---
Date/Time of Note Date/Time of Note DATE: 05/19/16 TIME: 16:48 Assessment/Plan Assessment/Plan Additional Assessment/Plan IMPRESSION: 1. Status post surgery for severe anastomotic stenosis.doing better 2. Status post cholecystectomy. 3. Status post closure of the enterotomy. 4. History of stomach cancer. 5. Nicotine usage 6. Rt. hydrocele Plan advance diet continue present care no evidence of malignancy Consultation Date/Type/Reason Admit Date/Time May 08, 2016 at 13:19 Initial Consult Date 05/08/16 [facility] Referring Provider: SOFIA SHAFFER MD 24 HR Interval Summary Constitutional: improved Exam/Review of Systems Vital Signs Vitals Vital Signs Date Time Temp Pulse Resp B/P Pulse Ox O2 Delivery O2 Flow Rate FiO2 05/19/16 13:05 16 05/19/16 13:04 98.9 80 115/70 96 Room Air Intake and Output 05/18/16 05/18/16 05/19/16 15:00 23:00 07:00 Intake Total 100 ml 965 ml 1250 ml Output Total 1070 ml 2500 ml Balance 100 ml -105 ml -1250 ml Exam Constitutional: alert, oriented, well developed Psych: nl mood/affect, no complaints Head: atraumatic, normocephalic Eyes: EOMI, PERRL, nl conjunctiva, nl lids, nl sclera ENMT: nl external ears & nose, nl lips & teeth, nl nasal mucosa & septum Neck: non-tender, supple Respiratory: clear to auscultation, normal air movement Cardiovascular: nl pulses, regular rate and rhythm Gastrointestinal: nl liver, spleen, non-tender, soft Musculoskeletal: nl extremities to inspection, nl gait and stance Extremities: normal pulses Neurological: COMPUTER PROJECT MANAGER II-XII intact, nl mental status, nl speech, nl strength Skin: nl turgor, No rash or lesions Lymph: nl lymph nodes Results Result Diagram: 05/19/164 05/19/16423 Results 24 hrs Laboratory Tests Test 05/18/16 17:53 05/18/16 23:49 05/19/16 04:24 05/19/16 05:14 Bedside Glucose 94 138 118 Anion Gap 11 Basophils # 0.0 Basophils % 0.1 Blood Urea Nitrogen 15 Calcium Level 8.1 L Carbon Dioxide Level 30 Chloride Level 97 Creatinine 0.69 Eosinophils # 0.1 Eosinophils % 1.7 Glucose Level 103 Hematocrit 25.6 L Hemoglobin 8.6 L Lymphocytes # 0.6 L Lymphocytes % 7.9 L Mean Corpuscular Hemoglobin 30.3 Mean Corpuscular Hemoglobin Concent 33.6 Mean Corpuscular Volume 90.1 Mean Platelet Volume 10.7 H Monocytes # 0.4 Monocytes % 5.1 Neutrophils # 6.5 Neutrophils % 84.4 H Nucleated Red Blood Cells # 0.0 Nucleated Red Blood Cells % 0.0 Platelet Count 200 Potassium Level 4.0 Red Blood Count 2.84 L Red Cell Distribution Width 14.4 Sodium Level 134 L White Blood Count 7.7 Test 05/19/16 12:07 Bedside Glucose 89 Medications Medications Current Medications Ondansetron HCl (Zofran Inj) 4 mg Q6H PRN IV NAUSEA AND/OR VOMITING Last administered on 05/15/16 15:38; Admin Dose 4 MG; Start 05/08/16 at 15:00 IV Flush (NS 10 ml) 10 ml PRN PRN IV IV PROTOCOL; Start 05/13/16 at 17:30 Lorazepam (Ativan) 1 mg Q6H PRN IV ANXIETY Last administered on 05/14/16 22:43 ; Admin Dose 1 MG; Start 05/14/16 at 00:00 Diagnostic Test (Pha) (Accucheck) 1 ea Q6 XX Last administered on 05/19/16 12: 07; Admin Dose 1 EA; Start 05/15/16 at 00:00 Acetaminophen/ Hydrocodone Bitart ([place] (5/325)) 1 tab Q4H PRN PO PAIN LEVEL 4 -7; Start 05/15/16 at 15:00 Acetaminophen/ Hydrocodone Bitart ([place] (5/325)) 2 tab Q4H PRN PO PAIN LEVEL 7 -10 Last administered on 05/19/16 13:07; Admin Dose 2 TAB; Start 05/15/16 at 15 :00 Hydromorphone HCl (Dilaudid) 0.5 mg Q2 PRN IV PAIN; Start 05/15/16 at 15:00 Hydromorphone HCl (Dilaudid) 1 mg Q2 PRN IV PAIN; Start 05/15/16 at 15:00 Docusate Sodium (Colace) 100 mg BID PRN PO CONSTIPATION; Start 05/15/16 at 15: 00 Bisacodyl (Dulcolax Supp) 10 mg BID PRN [place] CONSTIPATION; Start 05/15/16 at 15: 00 Sodium Biphosphate/ Sodium Phosphate (Fleet Enema) 133 ml BID PRN [place] CONSTIPATION; Start 05/15/16 at 15:00 Enoxaparin Sodium (Lovenox) 40 mg DAILY SC Last administered on 05/19/16 08:16 ; Admin Dose 40 MG; Start 05/16/16 at 09:00 Naloxone HCl (Narcan) 0.2 mg Q2M PRN IV RR 8 BREATHS/MIN OR LESS; Start at 15:00 Hydromorphone HCl (Dilaudid MATHEMATICAL SCIENCES PROFESSOR) Q4PCA IV Last administered on 05/18/16 07:16 ; Admin Dose 6 MG; Start 05/15/16 at 15:00; Status Future Hold Pantoprazole (Protonix Tab) 40 mg DAILY@06 PO ; Start 05/20/16 at 06:00 INA TOVAR MD May 19, 2016 16:48
--- NOTE | 2016-05-19 17:51 | PN ---
Date/Time of Note Date/Time of Note DATE: 05/19/16 TIME: 17:44 Assessment/Plan VTE Prophylaxis VTE Prophylaxis Intervention: SCD's Lines/Catheters [facility]from [facility] Saline Lock Urinary Cath still in place: No Assessment/Plan Chief Complaint/Hosp Course Assessment/Plan - Gastric outlet obstructive obstruction, status post EGD. Dr. Landeros who is covering for Dr. Gallego is following in gastroenterology consultation. Dr. Mar is following patient in general surgery consultation. - S/p surgery for severe anastomosis stenosis. Advance diet per surgery. Continue IS Q1 hr while awake. - Gastrics cancer status post surgery 2-1/2 years ago, status post chemotherapy and radiation. Patient was followed as an outpatient by Dr. Lou in radiation oncology and Dr. Lawrence oncology. Dr. Iglesias is following in hematology/ oncology consultation. -Tobacco dependence. Tobacco cessation is strongly advised. Continue sequential compression device for deep venous thrombosis prophylaxis and Protonix for peptic ulcer disease prophylaxis. Further recommendations based on clinical course. Plan of care discussed with Dr. Self. Problems: Subjective 24 Hr Interval Summary Free Text/Dictation Patient tolerates diet well, poor appetite, pain is well controlled. Exam/Review of Systems Vital Signs Vitals Vital Signs Date Time Temp Pulse Resp B/P Pulse Ox O2 Delivery O2 Flow Rate FiO2 05/19/16 13:05 16 05/19/16 13:04 98.9 80 115/70 96 Room Air Intake and Output 05/18/16 05/18/16 05/19/16 14:59 22:59 06:59 Intake Total 100 ml 965 ml 1250 ml Output Total 1070 ml 2500 ml Balance 100 ml -105 ml -1250 ml Exam Constitutional: alert, oriented Psych: no complaints Head: atraumatic, normocephalic Eyes: nl conjunctiva ENMT: nl external ears & nose, NGT. Neck: non-tender, supple Respiratory: clear to auscultation Cardiovascular: nl pulses, regular rate and rhythm Gastrointestinal: other (Mild left upper and right upper quadrant tenderness), soft, s/p surgery Musculoskeletal: nl extremities to inspection Extremities: normal pulses Neurological: EXPENDITURE REQUISITION CLERK II-XII intact Results Result Diagram: 05/19/164 05/19/164 Results 24 hrs Laboratory Tests Test 05/18/16 17:53 05/18/16 23:49 05/19/16 04:24 05/19/16 05:14 Bedside Glucose 94 138 118 Anion Gap 11 Basophils # 0.0 Basophils % 0.1 Blood Urea Nitrogen 15 Calcium Level 8.1 L Carbon Dioxide Level 30 Chloride Level 97 Creatinine 0.69 Eosinophils # 0.1 Eosinophils % 1.7 Glucose Level 103 Hematocrit 25.6 L Hemoglobin 8.6 L Lymphocytes # 0.6 L Lymphocytes % 7.9 L Mean Corpuscular Hemoglobin 30.3 Mean Corpuscular Hemoglobin Concent 33.6 Mean Corpuscular Volume 90.1 Mean Platelet Volume 10.7 H Monocytes # 0.4 Monocytes % 5.1 Neutrophils # 6.5 Neutrophils % 84.4 H Nucleated Red Blood Cells # 0.0 Nucleated Red Blood Cells % 0.0 Platelet Count 200 Potassium Level 4.0 Red Blood Count 2.84 L Red Cell Distribution Width 14.4 Sodium Level 134 L White Blood Count 7.7 Test 05/19/16 12:07 Bedside Glucose 89 Medications Medications Current Medications Ondansetron HCl (Zofran Inj) 4 mg Q6H PRN IV NAUSEA AND/OR VOMITING Last administered on 05/15/16 15:38; Admin Dose 4 MG; Start 05/08/16 at 15:00 IV Flush (NS 10 ml) 10 ml PRN PRN IV IV PROTOCOL; Start 05/13/16 at 17:30 Lorazepam (Ativan) 1 mg Q6H PRN IV ANXIETY Last administered on 05/14/16 22:43 ; Admin Dose 1 MG; Start 05/14/16 at 00:00 Diagnostic Test (Pha) (Accucheck) 1 ea Q6 XX Last administered on 05/19/16 12: 07; Admin Dose 1 EA; Start 05/15/16 at 00:00 Acetaminophen/ Hydrocodone Bitart ([place] (5/325)) 1 tab Q4H PRN PO PAIN LEVEL 4 -7; Start 05/15/16 at 15:00 Acetaminophen/ Hydrocodone Bitart ([place] (5/325)) 2 tab Q4H PRN PO PAIN LEVEL 7 -10 Last administered on 05/19/16 13:07; Admin Dose 2 TAB; Start 05/15/16 at 15 :00 Hydromorphone HCl (Dilaudid) 0.5 mg Q2 PRN IV PAIN; Start 05/15/16 at 15:00 Hydromorphone HCl (Dilaudid) 1 mg Q2 PRN IV PAIN; Start 05/15/16 at 15:00 Docusate Sodium (Colace) 100 mg BID PRN PO CONSTIPATION; Start 05/15/16 at 15: 00 Bisacodyl (Dulcolax Supp) 10 mg BID PRN [place] CONSTIPATION; Start 05/15/16 at 15: 00 Sodium Biphosphate/ Sodium Phosphate (Fleet Enema) 133 ml BID PRN [place] CONSTIPATION; Start 05/15/16 at 15:00 Enoxaparin Sodium (Lovenox) 40 mg DAILY SC Last administered on 05/19/16 08:16 ; Admin Dose 40 MG; Start 05/16/16 at 09:00 Naloxone HCl (Narcan) 0.2 mg Q2M PRN IV RR 8 BREATHS/MIN OR LESS; Start at 15:00 Hydromorphone HCl (Dilaudid RUBBER GASKET INSPECTOR TRIMMER) Q4PCA IV Last administered on 05/18/16 07:16 ; Admin Dose 6 MG; Start 05/15/16 at 15:00; Status Future Hold Pantoprazole (Protonix Tab) 40 mg DAILY@06 PO ; Start 05/20/16 at 06:00 MERISSA PIÑA May 19, 2016 17:50
[2016-05-19 19:09] VITALS: BP 104/64; RESP 18
[2016-05-20 00:03] VITALS: BP 108/65; RESP 18
[2016-05-20] MEDS: ACCU-CHEK XX SCH ×3 (00:41→12:00)
[2016-05-20 04:56] VITALS: BP 106/69; PULSE 78; RESP 18
[2016-05-20 05:48] LABS: ABNORMAL IP MESSAGE 1; ADD SCAN DIFF NO; BASOPHILS % 0.2 % (0.0-2.0); EOSINOPHILS # 0.1 10^3/ul (0.0-0.5); EOSINOPHILS % 0.9 % (0.0-7.0); HEMATOCRIT 26.2 % (42.0-52.0); HEMOGLOBIN 8.7 g/dl (14.0-18.0); LYMPHOCYTES # 0.6 10^3/ul (0.8-2.9); MEAN CORPUSCULAR HEMOGLOBIN 29.7 pg (29.0-33.0); MEAN CORPUSCULAR HGB CONC 33.2 g/dl (32.0-37.0); MEAN CORPUSCULAR VOLUME 89.4 fl (82.0-101.0); MEAN PLATELET VOLUME 10.5 fl (7.4-10.4); MONOCYTE # 0.6 10^3/ul (0.3-0.9); MONOCYTES % 5.2 % (0.0-11.0); NEUTROPHIL # 9.8 10^3/ul (1.6-7.5); NEUTROPHILS % 88.3 % (39.0-77.0); PLATELET COUNT 262 10^3/UL (140-415); RED BLOOD COUNT 2.93 10^6/ul (4.70-6.10); RED CELL DISTRIBUTION WIDTH 14.6 % (11.5-14.5); WHITE BLOOD COUNT 11.1 10^3/ul (4.8-10.8)
[2016-05-20] MEDS ORDERED: PANTOPRAZOLE (EC) 40 MG TAB PO SCH (06:00)
[2016-05-20 06:13] LABS: POTASSIUM 4.1 mmol/L (3.5-5.1)
[2016-05-20 06:15] LABS: CREATININE 0.71 mg/dl (0.61-1.24)
[2016-05-20 06:16] LABS: CALCIUM 8.8 mg/dl (8.4-10.2)
[2016-05-20 07:40] VITALS: BP 108/66; RESP 20
[2016-05-20] MEDS: ENOXAPARIN 40 MG/0.4 ML SYG SC SCH (08:43)
--- NOTE | 2016-05-20 10:02 | CONS ---
Date/Time of Note Date/Time of Note DATE: 05/20/16 TIME: 10:01 Assessment/Plan Assessment/Plan Additional Assessment/Plan Additional Assessment/Plan IMPRESSION: 1. Status post surgery for severe anastomotic stenosis.doing better 2. Status post cholecystectomy. 3. Status post closure of the enterotomy. 4. History of stomach cancer. 5. Nicotine usage 6. Rt. hydrocele Plan advance diet continue present care no evidence of malignancy pt.is stable Consultation Date/Type/Reason Admit Date/Time May 08, 2016 at 13:19 Initial Consult Date 05/08/16 Type of Consultation: [facility] Referring Provider: SOFIA SHAFFER MD 24 HR Interval Summary Constitutional: improved, no complaints Exam/Review of Systems Vital Signs Vitals Vital Signs Date Time Temp Pulse Resp B/P Pulse Ox O2 Delivery O2 Flow Rate FiO2 05/20/16 07:40 98.4 83 20 108/66 96 05/20/16 04:56 Room Air Intake and Output 05/19/16 05/19/16 05/20/16 14:59 22:59 06:59 Intake Total 85.00 ml 720 ml 460 ml Output Total 1800 ml 1050 ml Balance 85.00 ml -1080 ml -590 ml Exam Constitutional: alert, oriented, well developed Psych: nl mood/affect, no complaints Head: atraumatic, normocephalic Eyes: EOMI, PERRL, nl conjunctiva, nl lids, nl sclera ENMT: nl external ears & nose, nl lips & teeth, nl nasal mucosa & septum Neck: non-tender, supple Respiratory: clear to auscultation, normal air movement Cardiovascular: nl pulses, regular rate and rhythm Gastrointestinal: nl liver, spleen, non-tender, soft Musculoskeletal: nl extremities to inspection, nl gait and stance Extremities: normal pulses Neurological: PLASTICATOR II-XII intact, nl mental status, nl speech, nl strength Skin: nl turgor, No rash or lesions Lymph: nl lymph nodes Results Result Diagram: 05/20/1644905/20/16449 Results 24 hrs Laboratory Tests Test 05/19/16 12:07 05/19/16 18:12 05/19/16 22:46 05/20/16 04:50 Bedside Glucose 89 80 79 117 Anion Gap 15 Basophils # 0.0 Basophils % 0.2 Blood Urea Nitrogen 17 Calcium Level 8.8 Carbon Dioxide Level 28 Chloride Level 100 Creatinine 0.71 Eosinophils # 0.1 Eosinophils % 0.9 Glucose Level 122 Hematocrit 26.2 L Hemoglobin 8.7 L Lymphocytes # 0.6 L Lymphocytes % 5.0 L Mean Corpuscular Hemoglobin 29.7 Mean Corpuscular Hemoglobin Concent 33.2 Mean Corpuscular Volume 89.4 Mean Platelet Volume 10.5 H Monocytes # 0.6 Monocytes % 5.2 Neutrophils # 9.8 H Neutrophils % 88.3 H Nucleated Red Blood Cells # 0.0 Nucleated Red Blood Cells % 0.0 Platelet Count 262 # Potassium Level 4.1 Prealbumin 6.3 L Red Blood Count 2.93 L Red Cell Distribution Width 14.6 H Sodium Level 139 White Blood Count 11.1 #H Medications Medications Current Medications Ondansetron HCl (Zofran Inj) 4 mg Q6H PRN IV NAUSEA AND/OR VOMITING Last administered on 05/15/16 15:38; Admin Dose 4 MG; Start 05/08/16 at 15:00 IV Flush (NS 10 ml) 10 ml PRN PRN IV IV PROTOCOL; Start 05/13/16 at 17:30 Lorazepam (Ativan) 1 mg Q6H PRN IV ANXIETY Last administered on 05/14/16 22:43 ; Admin Dose 1 MG; Start 05/14/16 at 00:00 Diagnostic Test (Pha) (Accucheck) 1 ea Q6 XX Last administered on 05/20/16 06: 06; Admin Dose 1 EA; Start 05/15/16 at 00:00 Acetaminophen/ Hydrocodone Bitart ([place] (5/325)) 1 tab Q4H PRN PO PAIN LEVEL 4 -7; Start 05/15/16 at 15:00 Acetaminophen/ Hydrocodone Bitart ([place] (5/325)) 2 tab Q4H PRN PO PAIN LEVEL 7 -10 Last administered on 05/19/16 13:07; Admin Dose 2 TAB; Start 05/15/16 at 15 :00 Hydromorphone HCl (Dilaudid) 0.5 mg Q2 PRN IV PAIN; Start 05/15/16 at 15:00 Hydromorphone HCl (Dilaudid) 1 mg Q2 PRN IV PAIN; Start 05/15/16 at 15:00 Docusate Sodium (Colace) 100 mg BID PRN PO CONSTIPATION; Start 05/15/16 at 15: 00 Bisacodyl (Dulcolax Supp) 10 mg BID PRN [place] CONSTIPATION; Start 05/15/16 at 15: 00 Sodium Biphosphate/ Sodium Phosphate (Fleet Enema) 133 ml BID PRN [place] CONSTIPATION; Start 05/15/16 at 15:00 Enoxaparin Sodium (Lovenox) 40 mg DAILY SC Last administered on 05/20/16 08:43 ; Admin Dose 40 MG; Start 05/16/16 at 09:00 Naloxone HCl (Narcan) 0.2 mg Q2M PRN IV RR 8 BREATHS/MIN OR LESS; Start at 15:00 Hydromorphone HCl (Dilaudid HEAD OF PHYSICS) Q4PCA IV Last administered on 05/18/16 07:16 ; Admin Dose 6 MG; Start 05/15/16 at 15:00; Status Future Hold Pantoprazole (Protonix Tab) 40 mg DAILY@06 PO Last administered on 05/20/16 06 :08; Admin Dose 40 MG; Start 05/20/16 at 06:00 INA TOVAR MD May 20, 2016 10:02
--- NOTE | 2016-05-20 13:03 | PN ---
Date/Time of Note Date/Time of Note DATE: 05/20/16 TIME: 13:01 Assessment/Plan Lines/Catheters IV C[facility]ter Type (from [facility] Saline Lock Alex in Place (from [facility]): No Assessment/Plan Assessment/Plan [facility] Progress Note Date of Service: 05/20/16 Today's Impression & Plan: Overall stable and improved. No obvious post operative complication. Abd remains benign. No evidence for gastric dysfunction on regular diet. With above assessment, I've recommended the following for today: 1. D/c home 2. Please include the following in patient's discharge instructions: Please call [phone] if any of fever, nausea, vomiting, discharge from wound , wound redness, increase or sudden pain, blood in stool or vomit, or any other unusual signs or symptoms. Also, please call the same number in a few days to schedule an appointment for your follow up visit. Patient may remove dressings tomorrow. Showers OK starting tomorrow. No swimming , hot tub or bath for 2 weeks. No lifting more than 25 lbs for 8 weeks. Thank you again for your great care of this very pleasant patient and wonderful family. If there are any questions, please feel free to call me at [phone]. TOTAL VISIT TIME: 20 minutes of which more than half was spent in [id number] discussion with the patient, possibly including family, as well as coordination of care between multiple physicians and providers. Disclaimer: Inadvertent spelling or grammatical errors are likely due to EHR/ dictation software use and do not reflect on the overall quality of patient care. Updated Clinical Summary: This is a very pleasant 60-year-old gentleman with comorbidity of previous history of gastric cancer status post resection in [facility] about 20 years ago and then recurrence in 2013 when the patient underwent endoscopic biopsy at [facility] in November of 2013. Then subsequently was transferred to [facility] where he underwent re-resection with RY anastomosis (also included partial resection of wall of transverse colon with repair. Final pathology: extensive poorly differentiated, minimally mucin producing 7.3 cm, G3 adenocarcinoma of the stomach extending focally to distal resected margin of specimen associated with duodenum (positive margin; R1 resection), - LV, - perineural invasion, 08/10 nodes positive, negative proximal margin, TNM stage: [id number], and Her2 status unknown. Readmitted one month after surgery where EGD 01/24/14 showed gastric outlet obstruction with edema and ulceration at the anastomosis, as well as LA class IV esophageal ulceration. He was subsequently treated with chemotherapy and radiation. The details are currently missing and we are in the process of obtaining those. He also has a BMI 19.0 mainly due to 10 to 20 year history of difficulty with eating. This history has worsened over the last 3 years. The patient has had multiple endoscopic evaluations at [facility] starting 03/2015, repeated 10/2015, repeated 01/2016 and then 04/03/2016. In all of these endoscopic evaluations, the patient was found to have narrowing of the gastric outlet anastomosis onto the small intestine. The attempts to dilate this area were unsuccessful where the scope could not be passed. Several biopsies on all of these endoscopic attempts were negative. Patient was admitted to [facility] on 05/08/2016 with nausea, vomiting and abdominal pain. Endoscopic evaluation was repeated and similar findings were found with inability to pass the scope. S/p a laparoscopic, converted to open, resection of old gastrojejunostomy with reconstruction with primary anastomosis with complication of perforation of gallbladder by trocar as well as enterotomy ( transverse colon) during entry through the midline fascia in to the abdominal cavity, with subsequent primary repair of enterotomy of the transverse colon, cholecystectomy, and lysis of adhesions (at least 90 minutes) and abdominal lavage on 05/15/16 with findings of anastomotic narrowing due to scar tissue and no obvious evidence of malignancy. Final path showed no evidence of malignancy. COMORBIDITIES: 1. History of gastric cancer status post resection in [facility] 20 years ago followed by re-resection at [facility] in 2013 and then treated with radiation and chemotherapy. (Details are missing). 2. History of gastric outlet obstruction with multiple endoscopic evaluations and at least in 2015 and 2016. Five endoscopic evaluations, none of which showed evidence of recurrence of cancer, but the patient was not able to be dilated due to the small pinhole opening that was connecting his stomach to his small intestine. S/p a laparoscopic, converted to open, resection of old gastrojejunostomy with reconstruction with primary anastomosis with complication of perforation of gallbladder by trocar as well as enterotomy ( transverse colon) during entry through the midline fascia in to the abdominal cavity, with subsequent primary repair of enterotomy of the transverse colon, cholecystectomy, and lysis of adhesions (at least 90 minutes) and abdominal lavage on 05/15/16 with findings of anastomotic narrowing due to scar tissue and no obvious evidence of malignancy. Final path showed no evidence of malignancy. 4. Every day smoker. 5. Esophageal ulcers noted on multiple endoscopic evaluations. 6. History of bilateral nonobstructing renal calculi. 7. History of right hydrocele. 8. Atherosclerotic vascular disease. 9. Anemia 10. Malnutrition 11. Hypothyroidism 12. Smoker 1ppd many decades 13. Father with lung cancer Subjective: No major events or complaints overnight; no major abd pain and under control with medications; no n/v/d; no sob or cp; + flatus; + BM; more activity Objective: Vitals: See below Exam: GENERAL: On exam, the patient was laying in bed and appeared to be comfortable and in no acute distress. ABDOMEN: Soft, nontender and nondistended. Incisions clean w/o obvious e/e/d/h. There are no peritoneal signs or guarding. SKIN: Skin appears to be pink and feels warm to touch. NEUROLOGIC: Patient is awake, alert, and follows commands appropriately. Exam/Review of Systems Vital Signs Vitals Vital Signs Date Time Temp Pulse Resp B/P Pulse Ox O2 Delivery O2 Flow Rate FiO2 05/20/16 07:40 98.4 83 20 108/66 96 05/20/16 04:56 Room Air Intake and Output 05/19/16 05/19/16 05/20/16 15:00 23:00 07:00 Intake Total 85.00 ml 720 ml 460 ml Output Total 1800 ml 1050 ml Balance 85.00 ml -1080 ml -590 ml Results Result Diagram: 05/20/16 0450 05/20/16 0450 SHANDRA KO M.D. May 20, 2016 13:03
[2016-05-20] MEDS ORDERED: HYDR-3498 PO (15:54)
--- NOTE | 2016-05-20 15:59 | CONS ---
Date/Time of Note Date/Time of Note DATE: 05/20/16 TIME: 15:58 Assessment/Plan Assessment/Plan Additional Assessment/Plan 1. Preoperative evaluation prior to surgery for gastric outlet obstruction.- NO cardiac contraindication to proceeding with surgery at this time at moderate risk. Check post-op ECG and follow for s/s/x of CV complications post- operatively - stable - rate controlled now - off tele now - awake, stable - con' t to follow 2. Abnormal electrocardiogram with T-wave flattening in aVL.-negative troponin x 2 - no cp noted 3. Diastolic dysfunction by 2-D echo done this admission- euvolemic by exam, chronic. EUVOLEMIC by exam. 4. Hypertension, labile with borderline hypotension- WELL RX currently. 5. Gastric outlet obstruction- GI team follows- s/p surgery - recovering well- dispo plan 6. Nausea, vomiting secondary to gastric outlet obstruction- RESOLVED 7. Weight loss secondary to gastric outlet obstruction. 8. Recent cessation of tobacco usage. Consultation Date/Type/Reason Admit Date/Time May 08, 2016 at 13:19 Initial Consult Date 05/08/16 Type of Consultation: [facility] Referring Provider: SOFIA SHAFFER MD 24 HR Interval Summary Free Text/Dictation Off tele - no CP - better overall. ROS: No fever, no chills, no nausea, no vomiting, no diarrhea/constipation No recent weight changes No chest pain, no PND, no orthopnea No dizziness, blurred vision No thirst, no heat or cold intolerance Exam/Review of Systems Vital Signs Vitals Vital Signs Date Time Temp Pulse Resp B/P Pulse Ox O2 Delivery O2 Flow Rate FiO2 05/20/16 07:40 98.4 83 20 108/66 96 05/20/16 04:56 Room Air Intake and Output 05/19/16 05/19/16 05/20/16 15:00 23:00 07:00 Intake Total 85.00 ml 720 ml 460 ml Output Total 1800 ml 1050 ml Balance 85.00 ml -1080 ml -590 ml Exam General: WN/WD/NAD, AOx 3 HEENT: Unicetric/atraumatic/EOMI (follow commands) NECK: JVD elevated, no thyromegaly Lymph: no lymphadenopathy HEART: regular with no S3, II/ systolic murmur at apex LUNGS: Coarse sounds ABD: soft, NT, ND, +BS : Intact Neuro: non focal SKIN: chronic changes EXT: trace edema Results Result Diagram: 05/20/16 0450 05/20/16 0450 Results 24 hrs Laboratory Tests Test 05/19/16 18:12 05/19/16 22:46 05/20/16 04:50 05/20/16 12:12 Bedside Glucose 80 79 117 127 Anion Gap 15 Basophils # 0.0 Basophils % 0.2 Blood Urea Nitrogen 17 Calcium Level 8.8 Carbon Dioxide Level 28 Chloride Level 100 Creatinine 0.71 Eosinophils # 0.1 Eosinophils % 0.9 Glucose Level 122 Hematocrit 26.2 L Hemoglobin 8.7 L Lymphocytes # 0.6 L Lymphocytes % 5.0 L Mean Corpuscular Hemoglobin 29.7 Mean Corpuscular Hemoglobin Concent 33.2 Mean Corpuscular Volume 89.4 Mean Platelet Volume 10.5 H Monocytes # 0.6 Monocytes % 5.2 Neutrophils # 9.8 H Neutrophils % 88.3 H Nucleated Red Blood Cells # 0.0 Nucleated Red Blood Cells % 0.0 Platelet Count 262 # Potassium Level 4.1 Prealbumin 6.3 L Red Blood Count 2.93 L Red Cell Distribution Width 14.6 H Sodium Level 139 White Blood Count 11.1 #H Medications Medications Current Medications Ondansetron HCl (Zofran Inj) 4 mg Q6H PRN IV NAUSEA AND/OR VOMITING Last administered on 05/15/16 15:38; Admin Dose 4 MG; Start 05/08/16 at 15:00 IV Flush (NS 10 ml) 10 ml PRN PRN IV IV PROTOCOL; Start 05/13/16 at 17:30 Lorazepam (Ativan) 1 mg Q6H PRN IV ANXIETY Last administered on 05/14/16 22:43 ; Admin Dose 1 MG; Start 05/14/16 at 00:00 Diagnostic Test (Pha) (Accucheck) 1 ea Q6 XX Last administered on 05/20/16 06: 06; Admin Dose 1 EA; Start 05/15/16 at 00:00 Acetaminophen/ Hydrocodone Bitart ([place] (5/325)) 1 tab Q4H PRN PO PAIN LEVEL 4 -7; Start 05/15/16 at 15:00 Acetaminophen/ Hydrocodone Bitart ([place] (5/325)) 2 tab Q4H PRN PO PAIN LEVEL 7 -10 Last administered on 05/19/16 13:07; Admin Dose 2 TAB; Start 05/15/16 at 15 :00 Hydromorphone HCl (Dilaudid) 0.5 mg Q2 PRN IV PAIN; Start 05/15/16 at 15:00 Hydromorphone HCl (Dilaudid) 1 mg Q2 PRN IV PAIN; Start 05/15/16 at 15:00 Docusate Sodium (Colace) 100 mg BID PRN PO CONSTIPATION; Start 05/15/16 at 15: 00 Bisacodyl (Dulcolax Supp) 10 mg BID PRN ID CONSTIPATION; Start 05/15/16 at 15: 00 Sodium Biphosphate/ Sodium Phosphate (Fleet Enema) 133 ml BID PRN ID CONSTIPATION; Start 05/15/16 at 15:00 Enoxaparin Sodium (Lovenox) 40 mg DAILY SC Last administered on 05/20/16 08:43 ; Admin Dose 40 MG; Start 05/16/16 at 09:00 Naloxone HCl (Narcan) 0.2 mg Q2M PRN IV RR 8 BREATHS/MIN OR LESS; Start at 15:00 Hydromorphone HCl (Dilaudid [employer]) Q4PCA IV Last administered on 05/18/16 07:16 ; Admin Dose 6 MG; Start 05/15/16 at 15:00; Status Future Hold Pantoprazole (Protonix Tab) 40 mg DAILY@06 PO Last administered on 05/20/16 06 :08; Admin Dose 40 MG; Start 05/20/16 at 06:00 RADHA CARRINGTON MD May 20, 2016 15:59
--- NOTE | 2016-05-20 18:13 | RADRPT ---
Vent Rate: 86 bpm RR Interval: 0 msec OR Interval: 172 msec QRS Duration: 78 msec QT Interval: 376 msec QTC Interval: 449 msec P-R-T [place]: 64 - -4 - -2 degrees Normal sinus rhythm Inferior infarct , age undetermined Abnormal ECG Electronically Signed By: Inocencio Krishnan [id number]
--- NOTE | 2016-05-20 22:44 | CONS ---
Date/Time of Note Date/Time of Note DATE: 05/20/16 TIME: 11:42 Assessment/Plan Assessment/Plan Chief Complaint/Hosp Course HX GASTRIC CANCER SP Stomach surgery sec to stomach cancer - s/p RNY surgery -Gastric outflow obstruction with Intractable vomiting with nausea 2/2 high grade gastric outlet obstruction post op improved ok to dc f-up as outpt esophagitis Small bilateral nonobstructing renal calculi. Atherosclerotic vascular disease. Smoker- Current every day smoker(1-2 TIMES PER WEEK, CIGARETTES) Right hydrocele. - Urology consult appreciated- Dr Lozada notified Small bilateral nonobstructing renal calculi. - per Urology Atherosclerotic vascular disease. Hx Esophagitis SCDs for DVT prophylaxis Protonix for GI prophylaxis Problems: Consultation Date/Type/Reason Admit Date/Time May 08, 2016 at 13:19 Initial Consult Date 05/08/16 Type of Consultation: [facility] Referring Provider: SOFIA SHAFFER MD 24 HR Interval Summary Free Text/Dictation all noted ready for dc Exam/Review of Systems Vital Signs Vitals Vital Signs Date Time Temp Pulse Resp B/P Pulse Ox O2 Delivery O2 Flow Rate FiO2 05/20/16 07:40 98.4 83 20 108/66 96 05/20/16 04:56 Room Air Intake and Output 05/19/16 05/19/16 05/20/16 15:00 23:00 07:00 Intake Total 85.00 ml 720 ml 460 ml Output Total 1800 ml 1050 ml Balance 85.00 ml -1080 ml -590 ml Exam OBJECTIVE: HEENT: Head is normocephalic. NECK: Supple. HEART: Regular rate. LUNGS: Show diminished breath sounds at base. ABDOMEN: Soft, nontender to palpation. No rebound or guarding. EXTREMITIES: Negative for clubbing, cyanosis. Positive edema. DERMATOLOGIC: No rashes. MUSCULOSKELETAL: No joint effusions. NEUROLOGIC: No change in exam. Results Result Diagram: 05/20/1644905/20/16449 Results 24 hrs Laboratory Tests Test 05/19/16 22:46 05/20/16 04:50 05/20/16 12:12 Bedside Glucose 79 117 127 Anion Gap 15 Basophils # 0.0 Basophils % 0.2 Blood Urea Nitrogen 17 Calcium Level 8.8 Carbon Dioxide Level 28 Chloride Level 100 Creatinine 0.71 Eosinophils # 0.1 Eosinophils % 0.9 Glucose Level 122 Hematocrit 26.2 L Hemoglobin 8.7 L Lymphocytes # 0.6 L Lymphocytes % 5.0 L Mean Corpuscular Hemoglobin 29.7 Mean Corpuscular Hemoglobin Concent 33.2 Mean Corpuscular Volume 89.4 Mean Platelet Volume 10.5 H Monocytes # 0.6 Monocytes % 5.2 Neutrophils # 9.8 H Neutrophils % 88.3 H Nucleated Red Blood Cells # 0.0 Nucleated Red Blood Cells % 0.0 Platelet Count 262 # Potassium Level 4.1 Prealbumin 6.3 L Red Blood Count 2.93 L Red Cell Distribution Width 14.6 H Sodium Level 139 White Blood Count 11.1 #H DIANNA SCOTT MD May 20, 2016 22:44
--- NOTE | 2016-05-21 15:22 | PN ---
Date/Time of Note Date/Time of Note DATE: 05/21/16 TIME: 15:19 Assessment/Plan VTE Prophylaxis VTE Prophylaxis Intervention: anti-embolic stocking Lines/Catheters IV Catheter Type (from Nrs): PICC Line Central line still needed: No Urinary Cath still in place: No Assessment/Plan Assessment/Plan Patient is stable and can be discharged today We will follow patient in the office in 2 weeks. Subjective 24 Hr Interval Summary Free Text/Dictation Patient has no complaints. No abdominal pain no nausea no vomiting. Patient is able to tolerate solid food. Eyes: no complaints ENT: no complaints Respiratory: no complaints Cardiovascular: no complaints Gastrointestinal: no complaints Genitourinary: no complaints Musculoskeletal: no complaints Skin: no complaints Psychological: nl mood/affect, no complaints Immunologic: no complaints Exam/Review of Systems Vital Signs Vitals Vital Signs Date Time Temp Pulse Resp B/P Pulse Ox O2 Delivery O2 Flow Rate FiO2 05/20/16 07:40 98.4 83 20 108/66 96 05/20/16 04:56 Room Air Intake and Output 05/20/16 05/20/16 05/21/16 15:00 23:00 07:00 Intake Total 460 ml Output Total 400 ml Balance 60 ml Results Result Diagram: 05/20/16 0450 05/20/16 0450 Results 24 hrs Laboratory Tests Test 05/21/16 10:12 Lab Scanned Report REFERENCE LAB INA TOVAR MD May 21, 2016 15:22
== END 2016-05-20 17:30 | disposition home health service (06) | DRG 940 ==
LOC: E/R 08:56 → MS2 13:19 → ICU 05-15 20:09 → TEL 05-16 21:26 → MS1 05-17 13:44
PROVIDERS: ADMIT Internal Medicine; ATTEND Internal Medicine
PROC: 0DJ08ZZ Inspection of Upper Intestinal Tract, Via Natural or Artificial Opening Endoscopic (ICD-10-PCS; 2016-05-09)
PROC: 0DBA0ZZ Excision of Jejunum, Open Approach (ICD-10-PCS; 2016-05-15)
PROC: 0FT40ZZ Resection of Gallbladder, Open Approach (ICD-10-PCS; 2016-05-15)
PROC: 0WJP4ZZ Inspection of Gastrointestinal Tract, Percutaneous Endoscopic Approach (ICD-10-PCS; 2016-05-15)
PROC: 0DQL0ZZ Repair Transverse Colon, Open Approach (ICD-10-PCS; 2016-05-15)
PROC: 0DB60ZZ Excision of Stomach, Open Approach (ICD-10-PCS; principal; 2016-05-15 09:30)
DX: T85.858A Stenosis due to other internal prosthetic devices, implants and grafts, initial encounter (principal); K31.1 Adult hypertrophic pyloric stenosis; E46 Unspecified protein-calorie malnutrition; Z90.3 Acquired absence of stomach [part of]; N20.0 Calculus of kidney; I11.9 Hypertensive heart disease without heart failure; K22.10 Ulcer of esophagus without bleeding; Z68.1 Body mass index [BMI] 19.9 or less, adult; K91.71 Accidental puncture and laceration of a digestive system organ or structure during a digestive system procedure; Z85.028 Personal history of other malignant neoplasm of stomach; Z92.3 Personal history of irradiation; Z92.21 Personal history of antineoplastic chemotherapy; Z87.891 Personal history of nicotine dependence; R94.31 Abnormal electrocardiogram [ECG] [EKG]; I70.90 Unspecified atherosclerosis; D64.9 Anemia, unspecified; E03.9 Hypothyroidism, unspecified; Z80.1 Family history of malignant neoplasm of trachea, bronchus and lung; F17.210 Nicotine dependence, cigarettes, uncomplicated; Z53.31 Laparoscopic surgical procedure converted to open procedure; Y83.8 Other surgical procedures as the cause of abnormal reaction of the patient, or of later complication, without mention of misadventure at the time of the procedure; Y92.234 Operating room of hospital as the place of occurrence of the external cause; N43.3 Hydrocele, unspecified; Y92.009 Unspecified place in unspecified non-institutional (private) residence as the place of occurrence of the external cause; R63.4 Abnormal weight loss
CPT/HCPCS: 36415; 36569; 71010; 74176; 74177; 74240; 74250; 76937; 80048; 80053; 80061; 80076; 81003; 82105; 82378; 82962; 83605; 83690; 83735; 83880; 84100; 84134; 84484; 85025; 85049; 85610; 85670; 85730; 86301; 86304; 86850; 86900; 86901; 86920; 87086; 88304; 88305; 88312; 93005; 93306; 96361; 96374; 96375; 96376; 97116; 97162; 97530; C1769; C9113; J0330; J0461; J0690; J1170; J1644; J1650; J2060; J2250; J2270; J2405; J2543; J2710; J3010; J3475; J3480; J7030; J7042; Q9967

== ENCOUNTER 2016-06-09 11:13 | Outpatient (CLI) | payer BC ==
[~2016-06-09] VITALS: Ht 157.5 cm; Wt 49.5 kg
[~2016-06-09 11:13] MED LIST changes: -GABAPENTIN; -HYDROCODONE; -NEXIUM; +PANT40TA4 PO; -PANTOPRAZOLE; -REGLAN
[2016-06-09 11:25] VITALS: Ht 157.5 cm; Wt 49.5 kg
[2016-06-09 11:26] VITALS: BP 108/69; PULSE 86; RESP 18
--- NOTE | 2016-06-09 12:09 | PN ---
Date/Time of Note Date/Time of Note DATE: 06/09/16 TIME: 12:03 Assessment/Plan Assessment/Plan Assessment/Plan [facility] Progress Note Date of Service: 06/09/16 Today's Impression & Plan: Overall stable and much improved. No obvious post operative complication. Abd remains benign. No evidence for gastric dysfunction and on regular diet. Gained weight (BMI 20; pre-op was 19). With above assessment, I've recommended the following for today: 1. F/u with PCP 2. F/u with Dr. Gallego 3. F/u with us prn Thank you again for your great care of this very pleasant patient and wonderful family. If there are any questions, please feel free to call me at [phone]. TOTAL VISIT TIME: 20 minutes of which more than half was spent in [id number] discussion with the patient, possibly including family, as well as coordination of care between multiple physicians and providers. Disclaimer: Inadvertent spelling or grammatical errors are likely due to EHR/ dictation software use and do not reflect on the overall quality of patient care. Updated Clinical Summary: This is a very pleasant 60-year-old gentleman with comorbidity of previous history of gastric cancer status post resection in [facility] about 20 years ago and then recurrence in 2013 when the patient underwent endoscopic biopsy at [facility] in November of 2013. Then subsequently was transferred to [facility] where he underwent re-resection with RY anastomosis (also included partial resection of wall of transverse colon with repair. Final pathology: extensive poorly differentiated, minimally mucin producing 7.3 cm, G3 adenocarcinoma of the stomach extending focally to distal resected margin of specimen associated with duodenum (positive margin; R1 resection), - LV, - perineural invasion, 6/11 nodes positive, negative proximal margin, TNM stage: [id number], and Her2 status unknown. Readmitted one month after surgery where EGD 01/24/14 showed gastric outlet obstruction with edema and ulceration at the anastomosis, as well as LA class IV esophageal ulceration. He was subsequently treated with chemotherapy and radiation. The details are currently missing and we are in the process of obtaining those. He also has a BMI 19.0 mainly due to 10 to 20 year history of difficulty with eating. This history has worsened over the last 3 years. The patient has had multiple endoscopic evaluations at [facility] starting 03/2015, repeated 10/2015, repeated 01/2016 and then 04/03/2016. In all of these endoscopic evaluations, the patient was found to have narrowing of the gastric outlet anastomosis onto the small intestine. The attempts to dilate this area were unsuccessful where the scope could not be passed. Several biopsies on all of these endoscopic attempts were negative. Patient was admitted to [facility] on 05/08/2016 with nausea, vomiting and abdominal pain. Endoscopic evaluation was repeated and similar findings were found with inability to pass the scope. S/p a laparoscopic, converted to open, resection of old gastrojejunostomy with reconstruction with primary anastomosis with complication of perforation of gallbladder by trocar as well as enterotomy ( transverse colon) during entry through the midline fascia in to the abdominal cavity, with subsequent primary repair of enterotomy of the transverse colon, cholecystectomy, and lysis of adhesions (at least 90 minutes) and abdominal lavage on 05/15/16 with findings of anastomotic narrowing due to scar tissue and no obvious evidence of malignancy. Final path showed no evidence of malignancy. COMORBIDITIES: 1. History of gastric cancer status post resection in [facility] 20 years ago followed by re-resection at [facility] in 2013 and then treated with radiation and chemotherapy. (Details are missing). 2. History of gastric outlet obstruction with multiple endoscopic evaluations and at least in 2015 and 2016. Five endoscopic evaluations, none of which showed evidence of recurrence of cancer, but the patient was not able to be dilated due to the small pinhole opening that was connecting his stomach to his small intestine. S/p a laparoscopic, converted to open, resection of old gastrojejunostomy with reconstruction with primary anastomosis with complication of perforation of gallbladder by trocar as well as enterotomy ( transverse colon) during entry through the midline fascia in to the abdominal cavity, with subsequent primary repair of enterotomy of the transverse colon, cholecystectomy, and lysis of adhesions (at least 90 minutes) and abdominal lavage on 05/15/16 with findings of anastomotic narrowing due to scar tissue and no obvious evidence of malignancy. Final path showed no evidence of malignancy. 4. Every day smoker. 5. Esophageal ulcers noted on multiple endoscopic evaluations. 6. History of bilateral nonobstructing renal calculi. 7. History of right hydrocele. 8. Atherosclerotic vascular disease. 9. Anemia 10. Malnutrition 11. Hypothyroidism 12. Smoker 1ppd many decades 13. Father with lung cancer Subjective: No major events or complaints since d/c home; no major abd pain and no longer on pain medications; no n/v/d; no sob or cp; + flatus; + BM; + activity Objective: Vitals: See below Exam: GENERAL: On exam, the patient was sitting in a chair and appeared to be comfortable and in no acute distress. ABDOMEN: Soft, nontender and nondistended. Incisions clean, dry and almost completely intact (left to heal with 3'ry intention) w/o obvious e/e/d/h. There are no peritoneal signs or guarding. SKIN: Skin appears to be pink and feels warm to touch. NEUROLOGIC: Patient is awake, alert, and follows commands appropriately. Exam/Review of Systems Vital Signs Vitals Vital Signs Date Time Temp Pulse Resp B/P Pulse Ox O2 Delivery O2 Flow Rate FiO2 06/09/16 11:26 98.3 86 18 108/69 98 Room Air SHANDRA KO M.D. Jun 09, 2016 12:08
== END 2016-06-09 17:09 | disposition home or self-care (01) ==
LOC: HPC 11:13
PROVIDERS: ATTEND Transplant Surgery
DX: C16.9 Malignant neoplasm of stomach, unspecified (principal); K22.10 Ulcer of esophagus without bleeding; F17.200 Nicotine dependence, unspecified, uncomplicated; D64.9 Anemia, unspecified
CPT/HCPCS: G0463